=== PATIENT | male | born 1960 | race Caucasian/White ===

== ENCOUNTER → 2020-07-20 16:59 | Outpatient (CLI) | payer BC, SELFPAY | PROVIDERS: PCP Family Medicine; Visit Provider Family Medicine | DX: G47.30 Sleep apnea, unspecified (principal); G47.00 Insomnia, unspecified; R40.0 Somnolence; R06.83 Snoring; E66.9 Obesity, unspecified | CPT/HCPCS: G0399 ==

== ENCOUNTER → 2021-10-25 07:18 | Outpatient (CLI) | payer BC, SELFPAY ==
--- NOTE | 2021-10-25 07:26 | XR_ITS ---
FINAL REPORT CLINICAL HISTORY: LT FOOT PAIN FINDINGS: LEFT FOOT Three views of the left foot demonstrate no acute fracture or dislocation. There is a moderate Olesya deformity. There is a moderate plantar spur. The visualized joint spaces are normally aligned. The soft tissues are unremarkable. IMPRESSION: No acute bony abnormality. Reviewed, Interpreted and Dictated by Will Moon MD Transcribed by Aram Allen Authenticated by Will Moon MD on 10/25/2021 10:51:45 AM [facility]
== END ==
PROVIDERS: PCP Family Medicine; Visit Provider Family Medicine
DX: M79.672 Pain in left foot (principal)
CPT/HCPCS: 73630

== ENCOUNTER 2022-12-24 18:20 | Emergency (ER) | payer BC, SELFPAY ==
[2022-12-24 18:27] VITALS: BP 149/72; PULSE 81; RESP 18; TEMP 36.6; O2SAT 96; BMI 34.2
[2022-12-24 18:40] VITALS: BP 144/74; PULSE 83; RESP 18; TEMP 36.6; O2SAT 95; BMI 34.9
--- NOTE | 2022-12-24 18:49 | EXP.UTC ---
Discharge Plan Disposition Patient Disposition: Home, Self-Care Condition: Good Prescriptions Prescriptions: New cephalexin 500 mg capsule 500 mg PO TID 7 Days Qty: 21 0RF No Action gabapentin 600 mg tablet 600 mg PO QID Label Comments: TAKE ONE TABLET BY MOUTH FOUR TIMES DAILY MAY CAUSE DROWSINESS rosuvastatin 5 mg tablet 5 mg PO DAILY Label Comments: TAKE ONE TABLET BY MOUTH EVERY DAY AT BEDTIME metformin 500 mg tablet 500 mg PO BID Label Comments: TAKE TWO TABLETS BY MOUTH TWICE DAILY Jardiance 25 mg tablet 25 mg PO DAILY duloxetine 60 mg capsule,delayed release(DR/EC) 60 mg PO DAILY Label Comments: TAKE ONE CAPSULE BY MOUTH EVERY DAY esomeprazole magnesium 20 mg capsule,delayed release(DR/EC) 20 mg PO DAILY Label Comments: TAKE ONE CAPSULE BY MOUTH EVERY DAY celecoxib 200 mg capsule 200 mg PO DAILY Label Comments: TAKE ONE CAPSULE BY MOUTH EVERY DAY --TAKE WITH FOOD-- trazodone 50 mg tablet 50 mg PO DAILY folic acid 1 mg tablet 1 mg PO DAILY Label Comments: TAKE ONE TABLET BY MOUTH EVERY DAY Tremfya 100 mg/mL auto-injector See Rx Instructions .ROUTE .COMPLEX Rx Instructions: sub q duloxetine 30 MG capsule,delayed release(DR/EC) 30 mg PO DAILY Referrals Follow up/Referrals: David Bradford MD [Primary Care Provider] - See instructions Activity Restrictions/Add. Instructions Additional Instructions/Restrictions: Follow up immediately if any signs of infection including but not limited too redness, drainage streaking Take antibiotocs as prescribed Suture instructions: ?You have required stitches today. Please read the following instructions so you know how to care for them: ?1. Keep wound area dry for the first 24 hours. 2?? May clean gently with mild soap and water, after 48 hours to prevent crusting over suture knots. 3. You may shower if your provider gives permission but do not take a bath until the skin is healed.. 4. Never leave a wet dressing or Band-Aid on your stitches as this allows bacteria to reach the area and may cause infection. Band-aids can cause the wound to sweat and not recommended to wear for long periods of time Watch for signs of infection: ? Increasing redness, tenderness or warmth around the suture site ? Unusual swelling around the site ? Appearance of pus around each suture or any red streaks ? Fever If you develop any of the above signs or symptoms of infection, Follow up with Family Physician immediately 5. Suture removal in _10-12___days 6. Return to [facility] or follow up with family doctor for removal. This can be done by any medical provider dur?ing regular hours on Saturday through Saturday, by appointment. Clinical Impressions Clinical Impression: Laceration Instructions Patient Instructions: DI for Laceration Repair, DI for Laceration Repair -- Simple Discharge ED Provider: Radha Tesfaye [facility] [place] H[place] General Stated complaint: AO 12/24 Laceration to left leg Mode of Arrival: Ambulatory Source of Information: Patient Limitations: No Limitations Time Seen by Provider: 12/24/22 18:49 Description of Symptoms (Recalled from Triage Doc. by RN): laceration to the left leg. He was working on a deck fell through and nail got him. HEENT Symptoms (Recalled from RN notes): No Resp Symptoms (Recalled from RN notes): No Skin Symptoms (Recalled from RN notes): Yes MS Symptoms (Recalled from RN notes): No Functional Status (Recalled from RN notes): n/a History of Present Illness Provider Complaint: Patient states that he was working on a deck earlier today when he fell and a nail was sticking out and cut him on the left leg just above his knee States that he didnt notice how bad it was until after he got home and hasnt had a tetanus shot in awhile so he came in Related Data Home Medications Medication Instructions Recorded Confirmed duloxetine 30 mg cap
[2022-12-24 20:29] VITALS: BP 144/74; PULSE 83; RESP 18; TEMP 36.6; O2SAT 95
== END 2022-12-24 20:28 | disposition home or self-care (01) ==
LOC: ER 18:28 → UTC 18:29
PROVIDERS: Emergency Provider Nurse Practitioner; PCP Family Medicine
DX: S71.112A Laceration without foreign body, left thigh, initial encounter (principal); Z87.891 Personal history of nicotine dependence; W45.0XXA Nail entering through skin, initial encounter
CPT/HCPCS: 12002; 90715; 99204; 99213; G0463

== ENCOUNTER 2023-01-23 09:29 | Emergency (ER) | payer BC, SELFPAY ==
--- NOTE | 2023-01-23 09:34 | XR_ITS ---
FINAL REPORT CLINICAL HISTORY: fall 6 days ago right posterior rib pain COMPARISON: None FINDINGS: Four views of the right ribs were obtained. There is no displaced, acute fracture identified. The visualized lungs are clear. No pneumothorax is identified. IMPRESSION: No displaced rib fracture or pneumothorax identified. Reviewed, Interpreted and Dictated by Papito Solis III, MD Transcribed by Mere Peñaloza Authenticated and [facility]
--- NOTE | 2023-01-23 09:34 | XR_ITS ---
FINAL REPORT CLINICAL HISTORY: Mid back pain after fall x 6 days ago COMPARISON: None FINDINGS: Three views of the thoracic spine were obtained. There is no fracture present. There is no malalignment. There is mild degenerative change with osteophytes. There is mild rightward curvature of the upper thoracic spine. IMPRESSION: No acute process. Reviewed, Interpreted and Dictated by Papito Solis III, MD Transcribed by Mere Peñaloza Authenticated and [facility]
--- NOTE | 2023-01-23 09:55 | EXP.UTC ---
Discharge Plan Disposition Patient Disposition: Home, Self-Care Condition: Good Prescriptions Prescriptions: No Action gabapentin 600 mg tablet 600 mg PO QID Label Comments: TAKE ONE TABLET BY MOUTH FOUR TIMES DAILY MAY CAUSE DROWSINESS rosuvastatin 5 mg tablet 5 mg PO DAILY Label Comments: TAKE ONE TABLET BY MOUTH EVERY DAY AT BEDTIME metformin 500 mg tablet 500 mg PO BID Label Comments: TAKE TWO TABLETS BY MOUTH TWICE DAILY Jardiance 25 mg tablet 25 mg PO DAILY duloxetine 60 mg capsule,delayed release(DR/EC) 60 mg PO DAILY Label Comments: TAKE ONE CAPSULE BY MOUTH EVERY DAY esomeprazole magnesium 20 mg capsule,delayed release(DR/EC) 20 mg PO DAILY Label Comments: TAKE ONE CAPSULE BY MOUTH EVERY DAY celecoxib 200 mg capsule 200 mg PO DAILY Label Comments: TAKE ONE CAPSULE BY MOUTH EVERY DAY --TAKE WITH FOOD-- trazodone 50 mg tablet 50 mg PO DAILY folic acid 1 mg tablet 1 mg PO DAILY Label Comments: TAKE ONE TABLET BY MOUTH EVERY DAY Tremfya 100 mg/mL auto-injector See Rx Instructions .ROUTE .COMPLEX Rx Instructions: sub q cephalexin 500 mg capsule 500 mg PO TID 7 Days Qty: 21 0RF duloxetine 30 MG capsule,delayed release(DR/EC) 30 mg PO DAILY Referrals Follow up/Referrals: David Bradford MD [Primary Care Provider] - See instructions Activity Restrictions/Add. Instructions Additional Instructions/Restrictions: Go home and rest. Use the incentive spirometer 10 times every 4 hours while awake for the next 2 weeks. No heavy lifting. No twisting for the next few days. Follow up with your regular doctor. GO TO THE ER FOR ANY WORSENING SYMPTOMS OR CONCERN, ESPECIALLY BOWEL OR BLADDER ISSUES, SADDLE AREA NUMBNESS, FEVER, ETC Clinical Impressions Clinical Impression: Contusion of rib on right side Instructions Patient Instructions: DI for Rib Contusion Discharge ED Provider: Inderjit Rice [facility] [place] General Stated complaint: Fall@home 01/17 RT rib pain Time Seen by Provider: 01/23/23 09:54 History of Present Illness Provider Complaint: He states that he fell 6 days ago. Since then he had had right rib pain. He had to pull his truck door open yesterday and it caused his pain to get worse. He denies shortness of breath. He denies any other injury or complaint. Related Data Home Medications Medication Instructions Recorded Confirmed duloxetine 30 mg capsule,delayed 30 mg PO DAILY Depression 04/27/19 12/24/22 release celecoxib 200 mg capsule 200 mg PO DAILY Pain 11/29/21 12/24/22 duloxetine 60 mg capsule,delayed 60 mg PO DAILY . 11/29/21 12/24/22 release empagliflozin 25 mg tablet 25 mg PO DAILY . 11/29/21 12/24/22 (Jardiance) esomeprazole magnesium 20 mg 20 mg PO DAILY gerd 11/29/21 12/24/22 capsule,delayed release gabapentin 600 mg tablet 600 mg PO QID . 11/29/21 12/24/22 metformin 500 mg tablet 500 mg PO BID Diabetes 11/29/21 12/24/22 rosuvastatin 5 mg tablet 5 mg PO DAILY . 11/29/21 12/24/22 trazodone 50 mg tablet 50 mg PO DAILY sleep 11/29/21 12/24/22 folic acid 1 mg tablet 1 mg PO DAILY Supplement 12/24/22 12/24/22 guselkumab 100 mg/mL subcutaneous See Rx Instructions .Route 12/24/22 12/24/22 auto-injector (Tremfya) .COMPLEX . Previous Rx's Medication Instructions Recorded cephalexin 500 mg capsule 500 mg PO TID 7 days #21 caps 12/24/22 Allergies Allergy/AdvReac Type Severity Reaction Status Date / Time morphine AdvReac Mild Palpitation Verified 01/23/23 10:20 s [facility] Disclaimer: The information contained in this section may have been updated after the patient was seen, as this information can be updated by other users. 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
[2023-01-23 10:18] VITALS: BP 159/88; PULSE 68; RESP 14; TEMP 36.6; O2SAT 97; BMI 34.9
[2023-01-23 10:57] VITALS: BP 159/88; PULSE 68; RESP 14; TEMP 36.6
== END 2023-01-23 10:58 | disposition home or self-care (01) ==
PROVIDERS: Emergency Provider Nurse Practitioner Family; PCP Family Medicine
DX: S20.211A Contusion of right front wall of thorax, initial encounter (principal); Z87.891 Personal history of nicotine dependence; W19.XXXA Unspecified fall, initial encounter
CPT/HCPCS: 71101; 72072; 99212; 99214; G0463

== ENCOUNTER 2023-11-05 07:44 | Outpatient (CLI) | payer BC, SELFPAY ==
--- NOTE | 2023-11-05 07:50 | US_ITS ---
FINAL REPORT CLINICAL HISTORY: UPPER ABD PAIN COMPARISON: None FINDINGS: Sonographic images of the abdomen were obtained. The liver is fatty infiltrated. The gallbladder has an unremarkable appearance without evidence of gallstones. There is no evidence of biliary ductal dilatation. The common hepatic duct measures 3 mm, which is within normal limits. Limited images of the pancreas are unremarkable. The spleen size is normal. The right kidney measures 10.2 in length. The left kidney measures 11.2 in length. There is normal renal echogenicity. There is no evidence of hydronephrosis. The aorta has an unremarkable appearance. Limited images of the inferior vena cava are unremarkable. IMPRESSION: Fatty liver. Reviewed, Interpreted and Dictated by Papito Solis III, MD Transcribed by Mere Peñaloza Authenticated and [facility]
== END 2023-11-05 23:59 ==
LOC: RAD 07:45
PROVIDERS: PCP Family Medicine; Visit Provider Family Medicine
DX: R10.10 Upper abdominal pain, unspecified (principal)
CPT/HCPCS: 76700

== ENCOUNTER 2023-12-04 12:03 | Outpatient (CLI) | payer BC, SELFPAY ==
[2023-12-04 12:19] LABS: Basophils # 0.1 K/mm3 (0-0.2); Basophils % 0.9 % (0.1-2.0); Eosinophils # 0.2 K/mm3 (0.0-0.4); Eosinophils % 2.5 % (0.1-12.0); Hematocrit 45.6 % (42.0-52.0); Hemoglobin 15.1 g/dL (14.1-18.0); Lymphocytes # 1.5 K/mm3 (0.7-4.5); Lymphocytes % 22.6 % (10-50); Mean Corpuscular Hemoglobin 31.1 pg (27.0-31.2); Mean Corpuscular Volume 94.2 fl (80-94); Monocytes # 0.2 K/mm3 (0.1-1.0); Monocytes % 2.9 % (1.7-9.3); Neutrophils # 4.8 K/mm3 (1.8-7.8); Neutrophils % 71.2 % (37.0-80.0); Platelet Count 167 K/mm3 (142-424); Red Blood Count 4.84 M/mm3 (4.60-6.20); Red Cell Distribution Width 16.3 % (11.5-17.5); White Blood Count 6.7 K/mm3 (4.8-10.8)
[2023-12-04 14:37] LABS: Alanine Aminotransferase 78 U/L (12-78); Albumin Level 4.2 g/dl (3.5-5.0); Alkaline Phosphatase 85 U/L (38-126); Aspartate Amino Transferase 60 U/L (17-59); Bilirubin,Direct 0.2 mg/dl (0.0-0.4); Bilirubin,Indirect 0.5 mg/dL (0.0-0.9); Bilirubin,Total 0.7 mg/dl (0.2-1.3); Bilirubin,Unconjugated 0.4 mg/dL (0.0-1.1); Lipase 85 U/L (23-300); Total Protein,Serum 6.8 g/dl (6.3-8.2)
== END 2023-12-04 23:59 ==
LOC: LAB.DROPOF 12:04
PROVIDERS: PCP Family Medicine; Visit Provider Family Medicine
DX: J06.9 Acute upper respiratory infection, unspecified (principal); R74.8 Abnormal levels of other serum enzymes
CPT/HCPCS: 80076; 83690; 85025

== ENCOUNTER 2024-03-06 08:49 | Outpatient (CLI) | payer BC, SELFPAY ==
--- NOTE | 2024-03-06 | CA_ITS ---
FINAL REPORT TECHNIQUE: Color Doppler, duplex Doppler and cage scale sonography of the bilateral neck vasculature was performed. Velocities were measured in the carotid arteries. Stenosis evaluation based on velocity criteria. CLINICAL HISTORY: vertebral basilar insufficiency, Dizziness COMPARISON: None FINDINGS: The peak systolic velocity of the right common carotid artery is 93 cm/sec and internal carotid artery 110 cm/sec. The diastolic velocity in the internal carotid artery is 28 cm/sec. The ICA/CCA ratio is 1.69. Visually, a moderate amount of plaque is seen. These findings are consistent with less than 50% stenosis. The external carotid artery is patent. The right vertebral artery is patent with antegrade flow. The peak systolic velocity of the left common carotid artery is 90 cm/sec and internal carotid artery 110 cm/sec. The diastolic velocity in the internal carotid artery is 29 cm/sec. The ICA/CCA ratio is 1.3. Visually, a moderate amount of plaque is seen. These findings are consistent with less than 50% stenosis. The external carotid artery is patent. The left vertebral artery is patent with antegrade flow. IMPRESSION: No evidence of significant carotid stenosis. Bilateral patent vertebral arteries. If indicated, CTA or MRA could further evaluate. Reviewed, Interpreted and Dictated by Papito Solis III, MD Transcribed by Geeta Mohamud Authenticated and [facility]
== END 2024-03-06 23:59 | disposition home or self-care (01) ==
PROVIDERS: PCP Family Medicine; Visit Provider Family Medicine
DX: G45.0 Vertebro-basilar artery syndrome (principal)
CPT/HCPCS: 93880

== ENCOUNTER 2025-03-20 11:20 | Emergency (ER) | payer BC, SELFPAY ==
--- OUTSIDE RECORDS SUMMARY | 2009-08-31 20:00 | XMS_ITS | Continuity of Care Document ---
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 No Information Dec-3 1200 9 No Information Family History Family Member Type Diagnosis Age At Onset No Information Payers Payer name Insurance type Covered republican ID Authoriza tion(s) No Information Social History Type Description Quantity Date Captured Comments Sex Male Smoking Status No Information Chief Complaint And Reason For Visit No Information Reason For Referral Reason For Referral No Information History Of Present Illness Encounter Date Complaint History Of Prese nt Illness No Information Functional Status Date Functional Assessmen t No Information Instructions Date Instruction Additional Infor mation No Information Assessments Type Assessment Date No Information Patient Care Teams Name Effective Dates (start - stop) Status Members No Information
--- OUTSIDE RECORDS SUMMARY | 2024-06-12 05:30 | XMS_ITS ---
Author Organization [facility] Address [address] [facility] [address] [place], [place] [id number] Care Team Providers Care Gyn Name Role Phone Carrillo Bradford Primary Care Provider [phone] Allergies No Known Allergies Results Component Value Reference Range Notes Glycohemoglobin A1c (in hous e) Reviewed date:06/15/2024 09:44:08 AM Interpretation:6.6% Performing Lab: Notes/Report: 6.6% glycohemoglobin 6.6% 5 - 6.5 % P-Comprehensive Metabolic Pa quintin (CMP) Reviewed date:06/16/2024 04:25:01 PM Interpretation:gluc 182 Performing Lab: Notes/Report: Test performed by [facility] [employer], [place] [employer] [address] [place] [address] , [address], [place] [address] Curtis Gonzalez MD, Lead Material Handler CLIA: [id number] Sodium 142 135-145 mmol/L Potassium 4.3 3.5-5.3 [...] 156 Performing Lab: Notes/Report: Test performed by [employer], [place] [employer] [address] [place] [address] , [facility] [place], [place] [address] Curtis Gonzalez MD, Lead Material Handler CLIA: [id number] Cholesterol 156 <200 mg/dL Triglycerides 156 <150 [...] W/U Status Risk Notes Problem Chronic pain (74765211) Other chronic pain (G89.29) Active confirmed Vital Signs Blood pressure systolic 132 mm Hg 06/12/20 24 Blood pressure diastolic 80 mm Hg 024 Heart Rate 72 /min 06/12/2024 Height 72.50 in 06/12/2024 Weight 253.0 lbs 06/12/2024 BMI 33.84 kg/m2 06/12/2024 Encounters Encounter Location Date Provider Diagnosis [facility] [address] [facility] [address] [place], [place] [id number] 06/12/2024 Carrillo Bradford Type 2 diabetes ramesh [...] Up: 5M, Reason: Provider Name:Carrillo Jefferson er, 07/16/2025 10:00:00 AM, [address], [address], [place], [place], [id number], Progress Notes * Catarino MONTEOB:0 1960 (64 yo M)Acc No.[id number]:06/12/2024 Progress Notes Patient: Catarino LOZA Provider: Carrillo Bradford M.D. :1960 A ge:64 Y S ex:Male Date:06/12/2024 Address:[facility] [place], [id number] Subjective: * Chief Complaints: * 1 . [...] Procedure Codes: 3 6416 CAPILLARY BLOOD DRAW, [address] GLYCATED HEMOGLOBIN TEST, Modifiers: QW * Follow Up: 5 M * Images: Billing Information: * Visit Code: 94027 Office Visit, Est Pt., Level 4. * Procedure Codes: 88836 CAPILLARY BLOOD DRAW. 30507 GLYCATED HEMOGLOBIN TEST. Modifiers: QW * Electronic signature of Carrillo Bradford MD on 03/20/2025 at 11:38 AM EDT Sign off status: Pending * Provider: Carrillo Bradford M.D. Date: 1 Generated for Tenzini ng/Calixto/eTransmitting on: 0 03/20/2025 11:38 AM EDT History and Physical Notes * HPI (History [...]
--- OUTSIDE RECORDS SUMMARY | 2024-11-13 05:45 | XMS_ITS ---
Author Organization [facility] Address [address] [place], [place] [id number] Care Team Providers Care Wellness Assistant Name Role Phone Carrillo Bradford Primary Care Provider Allergies No Known Allergies Results Component Value Reference Range Notes Glycohemoglobin A1c (in hous e) Reviewed date:11/17/2024 04:31:55 PM Interpretation:7.3% Performing Lab: Notes/Report: 7.3% glycohemoglobin 7.3% 5 - 6.5 % P-Comprehensive Metabolic Pa quintin (CMP) Reviewed date:11/17/2024 04:31:55 PM Interpretation:gluc 178 Performing Lab: Notes/Report: Test performed by [facility] [address] [place] [address] , [address], [place] [address] Curtis Gonzalez MD, Industrial Machine Operator CLIA: [id number] Sodium 139 135-145 mmol/L Potassium 4.3 3.5-5.3 [...] 176 Performing Lab: Notes/Report: Test performed by [facility] [address] , [place] [address] Curtis Gonzalez MD, Industrial Machine Operator CLIA: [id number] Cholesterol 149 <200 mg/dL Triglycerides 176 <150 [...] Status NIZORAL CREAM 2 % [facility] Q DAY 05/30/2021 Active Tremfya 100 [...] Location Date Provider Diagnosis AZUL-Luis A [address] [facility] [place] [address] [place] [id number] 11/13/2024 Carrillo Bradford Type 2 diabetes ramesh [...] 3 Months, Reason: Provider Name:Carrillo Jefferson er, 07/16/2025 10:00:00 AM, [address], [address] , [place], [place], [id number], Progress Notes * Catarino MONTEOB:0 1960 (64 yo M)Acc No.[id number]:11/13/2024 Progress Notes Patient: Catarino LOZA Byron Provider: Carrillo Bradford M.D. :1960 A ge:64 Y S ex:Male Date:11/13/2024 Address:[facility] [place], [id number] Subjective: * Chief Complaints: * 1 . 5 months. 2. Needs labs, diabetic eye exam, & Prevnar vaccine. * HPI: C ardiology: The patient is here for a check-up on Hypertension, Hyperlipidemia, and diabetes. Pt states he is doing good and denies any new concerns today. Pt is fasting. [facility]. Denies : Chest Pain. D enies : [...] * Images: Billing Information: * Visit Code: 19239 Office Visit, Est Pt., Level 4. * Procedure Codes: 77737 GLYCATED HEMOGLOBIN TEST. Modifiers: QW 3075F SYST BP GE 130 - 139MM HG. 3079F DIAST BP 80-89 MM HG. 3051F HG A1C>EQUAL 7.0%<8.0%. * Electronic signature of Carrillo Bradford MD on 03/20/2025 at 11:37 AM EDT Sign off status: Pending * Provider: Carrillo Bradford M.D. Date: 0 11/13/2024 Generated for Jovan iglesias/Calixto/Alexandrasmitting on: 0 03/20/2025 11:37 AM EDT History and Physical Notes * [...]
--- OUTSIDE RECORDS SUMMARY | 2025-03-08 10:15 | XMS_ITS ---
Author Organization [facility] Address [address] [place], [place] [id number] Care Team Providers Care Leadership Development Instructor Name Role Phone Carrillo Bradford Primary Care Provider Allergies No Known Allergies Results Component Value Reference Range Notes Glycohemoglobin A1c (in hous e) Reviewed date:03/09/2025 11:42:20 AM Interpretation: Performing Lab: Notes/Report: glycohemoglobin 7.5% 5 - 6.5 % P-Comprehensive Metabolic Pa quintin (CMP) Reviewed date:03/11/2025 05:48:25 PM Interpretation:gluc 202, a1c 7.5 reviewed in office with patient Performing Lab: Notes/Report: Test performed by [facility] , [address], [place] [address] Curtis Gonzalez MD, Hose Sprayer CLIA: [id number] Sodium 138 135-145 mmol/L Potassium 4.6 3.5-5.3 [...] morning; Duration: 90 days Active Dexcom G7 Manufacturing Engineering Professor - as directed 03/08/2025 Active Nabumetone 750 MG as directed Orally t wice a day Active Problems Problem Type SNOMED Code ICD Code Onset Dates Problem Status W/U Status Risk Notes Problem Type 2 diabetes mellitus with other specified complication, unspecified whether penitentiary insulin use (E11.69) Active confirmed Problem Morbid obesity (199913895) Morbid obesity (E66.01) Active confirmed Problem Rheumatoid arthritis (87065319) Rheumatoid arthritis, involving unspecified site, unspecified whether rheumatoid factor present (M06.9) Active confirmed Vital Signs Blood pressure systolic 126 mm Hg 03/08/20 25 Blood pressure diastolic 74 mm Hg 025 Heart Rate 84 /min 03/08/2025 Height 72.50 in 03/08/2025 Weight 259.2 lbs 03/08/2025 BMI 34.67 kg/m2 03/08/2025 Encounters Encounter Location Date Provider Diagnosis [facility]is A [facility] [facility] [place] 36 [facility] [address] [place] [id number] 03/08/2025 Carrillo Bradford Type 2 diabetes mellitus without complication, without long-term current use of insulin E11.9 ; Psoriatic arthritis L40.50 ; Depression with anxiety F41.8 ; Type 2 diabetes mellitus with other specified complication, 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 E11.69 ; Morbid obesity E66.01 [...] mellitus with other specified complication, unspecified whether penitentiary insulin use (ICD-10 - E11.69) 03/08/2025 Morbid [...] Sensor - as directed 03/08/2025 Dexcom G7 Manufacturing Engineering Professor - as directed 03/08/2025 Next Appt Details Follow Up: 3 Months, Reason: Provider Name:Carrillo Jefferson , 07/16/2025 10:00:00 AM, [address] [facility] [place] 36 [facility], [address], [place], [id number], Progress Notes * Catarino MONTE:0 1960 (64 yo M)Acc No.[id number]:03/08/2025 Progress Notes Patient: Catarino LOZA Provider: Carrillo Bradford M.D. :1960 A ge:64 Y S ex:Male Date:03/08/2025 Address:[facility] [place], [id number] Subjective: * Chief Complaints: * 1 . [...] mellitus with other specified complication, unspecified whether penitentiary insulin use - E11.69 5 . M [...] * Images: Billing Information: * Visit Code: 40110 Office Visit, Est Pt., Level 4. * Procedure Codes: 88739 GLYCATED HEMOGLOBIN TEST. Modifiers: QW 3051F HG A1C>EQUAL 7.0%<8.0%. 1036F TOBACCO NON-USER. G8783 BP SCR PRFRM RCMDD DEFIND SCR INTVL. G8752 MOST RECENT SYSTOLIC BP < 140MM HG. G8754 MOST RECENT DIASTOLIC BP < 90MM HG. * Electronic signature of Carrillo Bradford MD on 03/20/2025 at 11:37 AM EDT Sign off status: Pending * Provider: Carrillo Bradford M.D. Date: 03/08/2025 Generated for Tenzini harris/Calixto/eTransmitting on: 03/20/2025 11:37 AM EDT History and Physical Notes * Examination Category [...]
[2025-03-20 11:28] VITALS: BP 149/70; PULSE 82; O2SAT 94
--- NOTE | 2025-03-20 11:28 | HMH.EDGENADL ---
Discharge Plan Disposition Patient Disposition: Home, Self-Care Prescriptions Prescriptions: No Action gabapentin 600 mg tablet 600 mg PO QID Patient Comments: TAKE ONE TABLET BY MOUTH FOUR TIMES DAILY MAY CAUSE DROWSINESS rosuvastatin 5 mg tablet 5 mg PO DAILY Patient Comments: TAKE ONE TABLET BY MOUTH EVERY DAY AT BEDTIME metformin 500 mg tablet 500 mg PO BID Patient Comments: TAKE TWO TABLETS BY MOUTH TWICE DAILY Jardiance 25 mg tablet 25 mg PO DAILY duloxetine 60 mg capsule,delayed release(DR/EC) 60 mg PO DAILY Patient Comments: TAKE ONE CAPSULE BY MOUTH EVERY DAY esomeprazole magnesium 20 mg capsule,delayed release(DR/EC) 20 mg PO DAILY Patient Comments: TAKE ONE CAPSULE BY MOUTH EVERY DAY celecoxib 200 mg capsule 200 mg PO DAILY Patient Comments: TAKE ONE CAPSULE BY MOUTH EVERY DAY --TAKE WITH FOOD-- trazodone 50 mg tablet 50 mg PO DAILY folic acid 1 mg tablet 1 mg PO DAILY Patient Comments: TAKE ONE TABLET BY MOUTH EVERY DAY Tremfya 100 mg/mL auto-injector See Rx Instructions .ROUTE .COMPLEX Rx Instructions: sub q cephalexin 500 mg capsule 500 mg PO TID 7 Days Qty: 21 0RF duloxetine 30 MG capsule,delayed release(DR/EC) 30 mg PO DAILY Referrals Follow up/Referrals: David Bradford MD [Primary Care Provider, Medical] - See instructions Activity Restrictions/Add. Instructions Additional Instructions/Restrictions: The Steri-Strips will fall off on their own over the next few days. Do not attempt to put them back on if they do fall off. Avoid submerging the hand in water or getting dirty until wound is healed. At that point, you can get the wound wet and use gentle soap and water. If it does begin to bleed again, hold pressure on the wound for at least 10 minutes before checking to see if the bleeding has stopped. If you develop any signs of infection, such as increased redness, swelling, pus draining from the wound, fever, or if you become concerned for your health for any reason, return to the emergency department for evaluation. Clinical Impressions Clinical Impression: Skin tear of right hand without complication Instructions Patient Instructions: DI for Skin Abscess Print Language Print Language: Fijian Discharge ED Provider: Vernon Ibarra Adult HPI General Chief complaint: Skin/Abscess/Foreign Body Stated complaint: AO 03/20/25 10:45 Cut on right hand Time Seen by Provider: 03/20/25 11:24 History of Present Illness HPI narrative: Gene Monte is a 64-year-old male with a history of diabetes who presents the emergency department for bleeding wound to his right hand. Patient states that he and his were moving furniture this morning when the piece of furniture got pushed into his right hand pinning it against another object. He pulled his hand away and tore the skin on the top of his right hand. He states that this happened approximately 45 minutes prior to arrival. He notes it is continue to bleed. He denies any numbness or tingling. He states that this occurred approximately 45 minutes prior to arrival. He states that his last tetanus shot was approximately 2 years ago. Related Data Home Medications ?Medication ?Instructions ?Recorded ?Confirmed duloxetine 30 mg capsule,delayed 30 mg PO DAILY Depression 04/27/19 12/24/22 release celecoxib 200 mg capsule 200 mg PO DAILY Pain 11/29/21 12/24/22 duloxetine 60 mg capsule,delayed 60 mg PO DAILY . 11/29/21 12/24/22 release empagliflozin 25 mg tablet 25 mg PO DAILY . 11/29/21 12/24/22 (Jardiance) esomeprazole magnesium 20 mg 20 mg PO DAILY gerd 11/29/21 12/24/22 capsule,delayed release gabapentin 600 mg tablet 600 mg PO QID . 11/29/21 12/24/22 metformin 500 mg tablet 500 mg PO BID Diabetes 11/29/21 12/24/22 rosuvastatin 5 mg tablet 5 mg PO DAILY . 11/29/21 12/24/22 trazodone 50 mg tablet 50 mg PO DAILY sleep 11/29/21 12/24/22 folic acid 1 mg tablet 1 mg PO DAILY Supplement 12/24/22 12/24/22 guselkumab 100 mg/mL subcutaneous See Rx Instructions .Route 12/24/22 12/24/22 auto-injector (Tremfya) .COMPLEX . Previous Rx's ?Medication ?Instructions ?Recorded cephalexin 500 mg capsule 500 mg PO TID 7 days #21 caps 12/24/22 Allergies Allergy/AdvReac Type Severity Reaction Status Date / Time morphine AdvReac Mild Palpitation Verified 01/23/23 10:20 s PFSH PFS Disclaimer: The information contained in this section may have been updated after the patient was seen, as this information can be updated by other users. Social History Smoking Status: Never smoker alcohol intake: current alcohol intake frequency: 0-2 drinks per day substance use type: denies use current occupational status: other Travel in the last 8 weeks?: None caffeine: Yes Have you lived/traveled outside US in past 30 days?: No Contact w/someone who lives/traveled outside US past 30 days?: No Exposure to someone with infectious disease in past 14 days?: No Do you have a fever (greater than 100.4 F or 38 C)?: No Have you tested positive for COVID-19?: No Exposed to someone with COVID-19 in past 14 days?: No Do you have a sore throat?: No Do you have a cough?: No Do you have any weakness?: No Do you have any diarrhea?: No Are you experiencing any unusual bleeding?: No Do you have any muscle aches/pain?: No Do you have any abdominal pain?: No Are you experiencing loss of taste or smell?: No Other Medical History Have you received the Flu Vaccine for this season: No Have you received the Pneumonia Vaccine: Yes ROS Obtained: Yes Systems reviewed as appropriate & no additional complaints except as documented Physical Exam General General appearance: alert and in no apparent distress Head Head exam: atraumatic Eye Eye exam: Present normal appearance ENT ENT exam: Present normal external ear exam Neck Neck exam: Present full ROM Chest Chest inspection: Present symmetric chest wall rise Respiratory Respiratory exam: Present normal lung sounds bilaterally; Absent respiratory distress Cardiovascular Cardiovascular exam: Present regular rate and normal rhythm Abdominal Exam Abdominal exam: Absent distention exam: Present deferred Extremities Exam Extremities exam: Present normal inspection and other (Right upper extremity: 5 cm skin tear to the dorsum of the right hand with venous oozing. Full range of motion of all fingers. Sensation grossly intact. Strong radial pulse.) Expanded Upper Extremity Exam Right: Hand L/R back image:  1. skin tear/laceration Back Exam Back exam: Present normal inspection Neurological Exam Neurological exam: Present alert and oriented X3 Psychiatric Psychiatric exam: Present normal affect Skin Skin exam: Present warm and dry Medical Decision Making Medical Records Screening: Per USPSTF and CDC recommendations, given the prevalence of disease in our region, it is our hospital?s policy to screen for HIV and viral Hepatitis for all patients aged 18 and over and those with ongoing risk factors. Nelson Inquiry Pt receiving controlled substance: No Vital Signs: 03/20/25 11:28 03/20/25 11:30 03/20/25 11:31 Temperature 98.4 F Temperature Source Oral Pulse Rate 82 80 Pulse Rate [Right] 82 Respiratory Rate 18 Blood Pressure 149/70 H 142/78 H Blood Pressure [Right Arm] 149/70 H Blood Pressure Mean [Right Arm] 96 02 Sat by Pulse Oximetry 94 L 97 96 Oxygen Delivery Method Room Air 03/20/25 12:43 Temperature 98.4 F Temperature Source Pulse Rate 81 Pulse Rate [Right] Respiratory Rate 18 Blood Pressure 139/69 Blood Pressure [Right Arm] Blood Pressure Mean [Right Arm] 02 Sat by Pulse Oximetry Oxygen Delivery Method Room Air Orders (Tests/Meds): ED MEDICATIONS Discontinued Medications Generic Name Dose Route Start Last Admin Trade Name Freq PRN Reason Stop Dose Admin Tranexamic Acid 1,000 mg 03/20/25 12:00 03/20/25 11:55 Tranexamic Acid 1,000 Mg/10 Ml Vial TP 03/20/25 12:01 1,000 mg ONCE ONE Administration Medical Decision Narrative: Gene Monte is a 64-year-old male with a history of diabetes who presents the emergency department for bleeding wound to his right hand. Patient states that he and his were moving furniture this morning when the piece of furniture got pushed into his right hand pinning it against another object. He pulled his hand away and tore the skin on the top of his right hand. He states that this happened approximately 45 minutes prior to arrival. He notes it is continue to bleed. He denies any numbness or tingling. He states that this occurred approximately 45 minutes prior to arrival. He states that his last tetanus shot was approximately 2 years ago. On arrival, patient is hemodynamically stable, in no acute respiratory distress, breathing comfortably on room air with appropriate oxygen saturation. Physical exam, stated above, revealed an overall well-appearing male in no distress. He has a 4 cm skin tear to the dorsum of his right hand with venous oozing but no evidence of arterial bleeding. He has full range of motion of his angers with normal sensation. Radial pulses intact. Physical exam is otherwise unremarkable. There is no concern for any bony involvement x-ray imaging was considered, however was not pursued at this time as there is low concern for fracture. Will apply TXA soaked gauze to help control bleeding. Patient's skin is very thin and will likely not be suitable for sutures. Will pursue Steri-Strips and Dermabond if needed once wound is hemostatic. Patient's wound was hemostatic with pressure and TXA soaked gauze. I then placed Steri-Strips over the wound after thoroughly irrigating it with sterile water and Hibiclens. He tolerated this well. Patient was given instructions to return if there is any evidence of infection and to keep the wound clean and to not submerge it in water until it is fully healed. He was also provided gauze dressing to keep the wound covered. All questions were answered. He demonstrated understanding and was in agreement this plan. He was then discharged from the emergency department in stable condition. Procedures Laceration Laceration 1: Site: hand Side (If applicable): right Size (cm): 5 Description: flap and irregular Depth: simple, single layer Local Anesthetic: other anesthetic (None) Pre-repair: irrigated extensively Skin layer closed with: other (Steri-Strips x 6) Critical Care Critical Care Time Critical Care Time: No
[2025-03-20 11:30] VITALS: BP 142/78; PULSE 80; O2SAT 97
[2025-03-20 11:31] VITALS: BP 149/70; PULSE 82; RESP 18; TEMP 36.9; O2SAT 96; BMI 33.6
--- NOTE | 2025-03-20 11:36 | PC.NURSE ---
Received report from SHARLENE Knight.
--- OUTSIDE RECORDS SUMMARY | 2025-03-20 11:37 | XMS_ITS | Continuity of Care Document ---
Author Organization [facility], RHEUMATOLOGY SB Address [address] [place] [address] Care Team Providers Care Fifth Grade Teacher Name Role Phone ALISSA SIMS Referring Provider MEET PERALES Primary Care Provider ANA PAUL Lining Presser MARY CAMERON Maid Supervisor Assessment Encounter Date Assessment Date Assessment LastModified by Organization Details LastModified Time 01/22/2025 01/22/2025 Follow-up on psoriatic arthritis and joint pains. A bit symptomatic with joint pains. Impression and plan as follows: [email or web address] Not available 01/22/2025 13:48:40 Plan of Treatment Reminders Order Date Submit Date Provider Last Modified By Organization Details Last Modified Time Details Appointments RHEUM RECHECK 2024 08:15A M MARY CAMERON MD Not available Not available Not available Lab CBC w/ auto diff 2024 025 [facility], [address] [place] [address], [id number], 01/22/2025 14:55:56 hepatic function panel, serum 2024 025 [facility], [address] [place] [address], [id number], 01/22/2025 15:29:21 Referral None recorded. Procedures None recorded. Surgeries None recorded. Imaging None recorded. Medication Orders nabumeton e 750 mg tablet 2024 025 [id number], [address] , [place], [place], [id number], 01/22/2025 13:25:39 Patient TargetsNo targets recorded. Patient InstructionsNo instructions recorded. Reason for Referral None Reported. Medical Equipment None Reported. Allergies Allergen ID Allergen Name Allergen Category Reaction Reaction Severity Criticality Documentation Date Start Date Code Code System Note Provider Name and Address Organization Details Recorded Time 633349 morphine medicatio n rash mild low 04/16/2024 7052 RxNorm Emerita Stevenson [facility] 4 10:59:48 Medications Name Sig Start Date Stop Date Status Note LastModified by Organization Details LastModified Time gabapenti n 600 mg tablet Take 1 tablet 3 times a day by oral route. active Not Available Not Available No t Available nabumeton e 750 mg tablet Take 1 tablet twice a day by oral route for 30 days. 2024 active Not Available Not Available Not Avai lable methotrex ate sodium 2.5 mg tablet TAKE 8 TABLETS BY MOUTH ONCE WEEKLY ON THE SAME DAY EACH WEEK 2024 active Not Available Not Available Not Avai lable folic acid 1 mg tablet Take 1 tablet every day by oral route for 90 days. 2023 active Not Available Not Available Not Avai lable aspirin 81 mg tablet Daily 09/28 completed Frequenc y: daily;Me dication Descript ion: aspirin; Dosage:1 ; Route:or al; refills: 0 Not Available Not Available Not Available hydrocort isone 0.5 % topical ointment APPLY A THIN LAYER TO THE AFFECTED AREA(S) BY TOPICAL ROUTE 2 TIMES PER DAY active Not Available Not Available No t Available rosuvasta tin 5 mg tablet Take 1 tablet every day by oral route. active Not Available Not Available No t Available gabapenti n 300 mg tablet 01/11 completed Medicati on Descript ion: gabapent in; Route:or al; refills: 0 Not Available Not Available Not Available Fish Oil 09/28 completed Medicati on Descript ion: omega-3 polyunsa turated fatty acids; Route:or al; refills: 0 Not Available Not Available Not Available trazodone active Not Available Not Megan ilable Not Available metformin active Not Available Not Megan ilable Not Available celecoxib 01/22 completed Not Available Not Available Not Available esomepraz ole magnesium active Not Available Not Available No t Available duloxetin e active Not Available Not Available Not Available Jardiance active Not Available Not Megan ilable Not Available Vitals Date Recorded Body height Respiratory rate Oxygen saturation Oxygen saturation in Arterial blood by Pulse oximetry Heart rate Body mass index (BMI) Body weight Systolic And Diastolic Provider Name and Address Organization Details Last Updated DateTime 5 185.42 cm 16 /min 96 % 96 % 84 /min 35.9 kg/m2 278443. 12 g 122/68 mm[Hg] Sunil Gaitanerson [facility] 5 13:12:45 Social History Question Answer Notes LastModified by Organizat ion Details LastModified Time Tobacco Smoking Status [facility]/11/2022 09:02:42 What Was The Date Of Your Most Recent Tobacco Screening? 01/22/2025 [email or web address] Information not available 01/22/2025 Has Tobacco Cessation Counseling Been Provided? No Information not available 01/11/2022 Have You Recently Traveled Abroad? No Information not available 01/11/2022 Sex: Male Functional Status Question Answer Note LastModified by Organizat ion Details LastModified Time Do you use any illicit or recreational drugs? No Information not available 01/11/2022 Do you or have you ever used any other forms of tobacco or nicotine? No Information not available 01/11/2022 What is your level of alcohol consumption? Occasional [email or web address] Information not available 03/29/2023 Mental Status None recorded. Family History Relationship Description Onset Age of this Age Resolved Age Notes LastModified by Organization Details LastModified Time Father No current problems or disability [email or web address] Not available 01/11 09:02:35 Mother No current problems or disability [email or web address] Not available 01/11 09:02:35 Medical History Condition Response Diabetes Y Bleeding Disorder N Arthritis Y Emphysema N Acid Reflux (GERD) Y Heart Disease N Rheumatoid Arthritis Y Hypertension N COPD N Asthma N Past Encounters Encounter ID Performer Location Encounter Start Date Encounter Closed Date Diagnosis/Indication Diagnosis SNOMED-CT Code Diagnosis ICD10 Code Diagnosis Note [id number] MARY CAMERON MD [facility] [address] [place] [address] 01/22/2025 13:02:50 01/22/2025 13:55:14 Psoriatic arthritis 220762384 L40.50 64-year-ol d gentleman with psoriasis and psoriatic arthritis. Followed by Dr. Ana paul [facility]. On [place] 23 antagonist Tremfya 100 mg every 12 weeks. He has noticed psoriasis patches at 12 weeks and is planning to talk to dermatolog y about going back to q 8 weeks. Has failed Stelara as well as Taltz. He is also failed the anti-TNF therapy including Enbrel and Humira. On methotrexa te 20 mg once a week in combinatio n with folic acid 1 mg once a day. Current joint pains are more degenerati ve in nature involving the acromiocla vicular joint, bilateral shoulder joints as well as neck pains without radiculopa thy. No active synovitis or effusions. No interval infections .Does not have dactylitis or enthesitis . Stable chronic deformitie s at the wrist joints. Minimal dependent edema. Continue with the current methotrexa te at 20 mg weekly in combinatio n with folic acid 1 mg daily.He will continue with Tremfya 100 mg every 8 weeks instead of every 12 weeks. Discontinu e Celebrex and suggested a trial of Relafen 750 mg twice a day I also discussed importance of weight loss and low-carb diet. He is diabetic and would benefit from weight loss beside low sugar diet. He will come see me again in 6 months. Long-term current use of immunosuppressive drug [id number] Z79.899 10/04/23 labs all normal. We will repeat labs again today, obtain CBC liver function and ESR TB test 10/04/23 normal, repeat today. Repeat CBC and liver function panel Dupuytren' s contracture of finger [id number] M72.0 Dupuytren contractur e L hand middle and ring, R hand middle finger and ring finger. Chronic and stable. Continue with local care. At present hold off on any surgical interventi ons. Bilateral shoulder osteoarthritis [id number] 59404 M19.011 M19.012 Traumatic. Moderate to severe degenerati ve changes. Left shoulder more than right. Discussed the clinical findings and range of motion exercises. Suggested to DC celecoxib and start relafen 750 mg twice daily. Health Concerns Section Related Observation LastModified by Organization Detai ls LastModified Time None Recorded Concern Status LastModified by Organization Details LastModified Time None Recorded Payers Encounter Date Sequence Insurance Name Policy Number Policy Her Covered Member ID Her Member ID Guarantor Name 01/22/2025 1 [place] [employer] [address] Khushbu Monte [id number] Catarino Monte 01/22/2025 2 [place] Catarino Monte [id number] Catarino Monte Notes Date Note Type Note Provider Name and Address Organization Details Recorded Time 01/22/2025 text/html 64 y/o m here fo r a follow-up on psoriatic arthritis. Byron was last seen here in our rheumatology department 07/24/24. Currently on the combination of methotrexate 20 mg q weekly and Tremfya 100mg q 12 weeks. He did try stretching Tremfya to 12 weeks however he did start getting psoriasis patches so is planning on going back to 8 weeks. He has started noticing some joint pains again. Particularly in his neck and shoulders. Does have type 2 diabetes. Controlled.Does take celecoxib and gabapentin. No side effects reported.Dermatolo yair is . Tolerating the combination well. skin is stable. Every once in a while a flare. No interval infections. MARY CAMERON MD [facility] [place], [address], [facility] 01/22/2025 13:48:57
--- OUTSIDE RECORDS SUMMARY | 2025-03-20 11:37 | XMS_ITS | Clinical Summary ---
Author Organization [facility] Address [address] [place] [address] Care Team Providers Care Elastic Assembler Name Role Phone Janine Miranda MD Primary Care Provider Allergies No known active allergies Medications celecoxib (CeleBREX) 200 MG capsule TAKE ONE CAPSULE BY MOUTH EVERY DAY --TAKE WITH FOOD-- 1 Active DULoxetine (Cymbalta) [address] capsule Take 60 mg by mouth 1 (one) time each day. 1 Active Jardiance 25 MG Take 25 mg by mouth 1 (one) time each day in the morning. 1 Active Coenzyme Q10 (Co Q10) 200 MG capsule 1 Active esomeprazole (NexIUM) [address] capsule Take 20 mg by mouth 1 (one) time each day. 1 Active gabapentin (Neurontin) 600 MG tablet 1 Active glimepiride (Amaryl) 2 MG tablet Take 2 mg by mouth 1 (one) time each day. 1 Active ibuprofen 600 MG tablet Active Taltz 80 MG/ML solution auto-injector 1 Active metFORMIN (Glucophage) 500 MG tablet Take 1,000 mg by mouth 2 (two) times a day. 1 Active ketoconazole (NIZOral) 2 % cream APPLY TOPICALLY TO THE AFFECTED AREA(S) DIRECTED EVERY DAY -- FOR EXTERNAL USE ONLY-- 1 Active rosuvastatin (Crestor) 5 MG tablet Take 5 mg by mouth every night. 1 Active traZODone (Desyrel) 50 MG tablet TAKE ONE TABLET BY MOUTH EVERY DAY AT BEDTIME MAY CAUSE DROWSINESS Active Family History Medical History Relation Name Comments Cancer Brother Diabetes Brother Stroke Father Cancer Father's Sister Cancer Mother Cancer Sister Diabetes Sister Relation Name Status Comments Brother Father Father's Sister Mother Sister Social History Tobacco Use Types Packs/Day Years Used Date Smoking Tobacco: Former Smokeless Tobacco: Former Sex and Gender Information Value Date Recorded Sex Assigned at Not on file Legal Sex Male 8:39 PM EDT Gender Identity Not on file Sexual Orientation Not on file Plan of Treatment Health Maintenance Due Date Last Done Comments [facility]-Depression Screening 1959 [facility]-Infant/Child/Adol SDOH Screenings 1959 [facility]- SDOH Screenings 1977 [facility]-Adult SDOH Screenings 1977 [facility]-DTaP,Tdap,and Td Vaccine s (1 - Tdap) 1978 CT Colonography 2004 Colonoscopy 2004 FIT-DNA 2004 FIT 2004 FOBT 2004 Sigmoidoscopy 2004 [facility]-Colorectal Cancer Screening 2004 [facility]-Pneumococcal Vaccine: 50 + Years (1 of 1 - PCV) 2009 [facility]-Zoster Vaccines (1 of 2) 2009 [id number] Vaccine (3 - season) 2024 12/23/2020, 11/15/2020 [facility]-Influenza Vaccine (#1) 05/03/202505/30, 06/27/2020, 06/22/2019 [facility]-RSV Vaccine: 60+ Years o r (1 - 1-dose 75+ series) 2034 HPV Vaccines Aged Out No longer eligi ble based on patient's age to complete this topic [facility]-HIB Vaccines Aged Out No longer e ligible based on patient's age to complete this topic [facility]-Hepatitis A Vaccines Aged Out No longer eligible based on patient's age to complete this topic [facility]-IPV Vaccines Aged Out No longer e ligible based on patient's age to complete this topic [facility]-Rotavirus Vaccines Aged Out No lo nger eligible based on patient's age to [place] [address] [place] [address] [facility] Care Teams Elastic Assembler Relationship Specialty Start Date End Date Janine Miranda MD PCP - General 07/25/21"
--- OUTSIDE RECORDS SUMMARY | 2025-03-20 11:38 | XMS_ITS | Data Portability ---
Author Organization SAURABH Alvarado Machado c, [facility] Address [address] [facility] [address] [place] [address] Care Team Providers Care Child Care Nurse Name Role Phone ALISSA SIMS Referring Provider MEET PERALES Primary Care Provider ANA LOMAS Catalyst Operator Chief MARY CAMERON Felt Dyeing Machine Tender Assessment Encounter Date Assessment Date Assessment LastModified by Organization Details LastModified Time 03/29/2023 03/29/2023 Dupuytren contracture L hand middle and ring, R hand middle finger and ring finger. [email or web address] Not available 03/29/2023 09:32:12 10/04/2023 10/04/2023 Dupuytren contracture L hand middle and ring, R hand middle finger and ring finger. [email or web address] Not available 10/04/2023 08:00:11 01/22/2025 01/22/2025 Follow-up on psoriatic arthritis and joint pains. A bit symptomatic with joint pains. Impression and plan as follows: Not available 01/22/2025 13:48:40 Plan of Treatment Reminders Order Date Submit Date Provider Last Modified By Organization Details Last Modified Time Details Appointments RHEUM RECHECK 2024 08:15A M MARY CAMERON MD Not available Not available Not available Lab CBC w/ auto diff 2024 025 [facility], [address] [place] [address], [place], [address], 01/22/2025 14:55:56 hepatic function panel, serum 2024 025 [facility], [address] [place] [address], [id number], 01/22/2025 15:29:21 CBC w/ auto diff 2023 024 [facility], [address] [place] [address], [id number], 07/24/2024 10:27:11 ESR (erythroc yte sedimenta tion rate), blood 2023 024 [facility], [address] [place] [address], [address], 07/24/2024 11:51:28 hepatic function panel, serum 2023 024 [facility], [address] [place] [address], [address], 07/24/2024 10:45:12 CBC w/ auto diff [address] [facility], [address] [place] [address], [id number], 04/23/2024 08:06:26 hepatic function panel, serum [address] [facility], [address] [place] [address], [address], 04/23/2024 08:06:26 CBC w/ auto diff 2023 024 [facility], [address] [place] [address], [id number], 10/04/2023 09:56:17 ESR (erythroc yte sedimenta tion rate), blood 2023 024 [facility], [address] [place] [address], [id number], 10/04/2023 12:10:27 ALT (alanine aminotran sferase), serum or plasma 2023 024 [facility], [address] [place] [address], [id number], 10/04/2023 09:37:54 AST/SGOT (aspartat e aminotran sferase), serum or plasma 2023 024 [facility], [address] [place] [address], [address], 10/04/2023 09:37:51 Mycobacte rium tuberculo sis stimulate d gamma interfero n, qual, blood 2023 024 [facility], [address] [place] [address], [id number], 10/07/2023 16:56:21 CBC w/ auto diff 2022 023 [facility], [address] [place] [address], [id number], 03/29/2023 10:59:08 ALT (alanine aminotran sferase), serum or plasma 2022 023 [facility], [address] [place] [address], [address], 03/29/2023 11:12:55 AST/SGOT (aspartat e aminotran sferase), serum or plasma 2022 023 [facility], [address] [place] [address], [address], 03/29/2023 11:12:58 ESR (erythroc yte sedimenta tion rate), blood 2022 023 [facility], [address] [place] [address], [id number], 03/29/2023 12:05:48 Referral None recorded. Procedures None recorded. Surgeries None recorded. Imaging None recorded. Medication Orders nabumeton e 750 mg tablet 2024 025 [id number], [address] [place], [id number], 01/22/2025 13:25:39 methotrex ate sodium 2.5 mg tablet 2023 024 [id number], [address] [place], [phone], 07/24/2024 09:34:28 folic acid 1 mg tablet 2023 024 [id number], [address] [place], [id number], 07/24/2024 09:34:34 folic acid 1 mg tablet 2022 023 [facility], [address] [place] [address], [id number], 06/25/2023 12:45:04 methotrex ate sodium 2.5 mg tablet 2022 023 [facility], [address] [place] [address] [address] [place], [id number], 06/25/2023 12:45:11 Patient TargetsNo targets recorded. Patient Instructions Encounter Date Encounter Id Patient Instructions Last Modified By Organization Details Last Modified Time 04/16/2024 [id number] Dupuytren's Disease: Care Instructions Not available 04/17/2024 08:05:27 Reason for Referral None Reported. Results Created Date Observation Date Name Description Value Unit Range Abnormal Flag Note LastModifiedBy Organization Detail LastModifiedTime 03/29/2003/29/2023 COMPL ETE BLOOD COUNT white blood cells 6.2 10*3/ uL 3.8-10 .8 normal Not Available [facility] [address] [place] [address], [id number], 03/29/2023 10:59:08 03/29/20 23 03/29/2023 COMPL ETE BLOOD COUNT red blood cells 5.18 10*6/ uL 4.20-5 .80 normal Not Available [facility] [address] [place] [address], [address], 03/29/2023 10:59:08 03/29/20 23 03/29/2023 COMPL ETE BLOOD COUNT hemoglobin 15.4 g/dL 14.0-1 8.0 normal Not Available [facility] [address] [place] [address], [address], 03/29/2023 10:59:08 03/29/20 23 03/29/2023 COMPL ETE BLOOD COUNT hematocrit 46.0 % 40.0-5 2.0 normal Not Available [facility] [address] [place] [address], [address], 03/29/2023 10:59:08 03/29/20 23 03/29/2023 COMPL ETE BLOOD COUNT MCV 89 fL 80-100 normal Not Available [facility] [address] [place] [address], [address], 03/29/2023 10:59:08 03/29/20 23 03/29/2023 COMPL ETE BLOOD COUNT MCH 30 pg 26-35 normal Not Available [facility] [address] [place] [address], [address], 03/29/2023 10:59:08 03/29/20 23 03/29/2023 COMPL ETE BLOOD COUNT MCHC 33 g/dL 32-36 normal Not Available [facility] [address] [place] [address], [id number], 03/29/2023 10:59:08 03/29/20 23 03/29/2023 COMPL ETE BLOOD COUNT RDW 16.3 % 11.0-1 5.0 high Not Available [facility] [address] [place] [address], [address], 03/29/2023 10:59:08 03/29/20 23 03/29/2023 COMPL ETE BLOOD COUNT MPV 8.5 fL 6.2-10 .5 normal Not Available [facility] [address] [place] [address], [address], 03/29/2023 10:59:08 03/29/20 23 03/29/2023 COMPL ETE BLOOD COUNT platelet count 169 10*3/ uL 130-40 0 normal Not Available [facility] [address] [place] [address], [address], 03/29/2023 10:59:08 03/29/20 23 03/29/2023 COMPL ETE BLOOD COUNT neutrophil,a bsolute 4.3 10*3/ uL 1.6-8. 4 normal Not Available [facility] [address] [place] [address], [address], 03/29/2023 10:59:08 03/29/20 23 03/29/2023 COMPL ETE BLOOD COUNT lymphocyte,a bsolute 1.3 10*3/ uL 0.4-5. 1 normal Not Available [facility] [address] [place] [address], [address], 03/29/2023 10:59:08 03/29/20 23 03/29/2023 COMPL ETE BLOOD COUNT monocyte,abs olute 0.4 10*3/ uL 0.0-1. 2 normal Not Available [facility] [address] [place] [address], [address], 03/29/2023 10:59:08 03/29/20 23 03/29/2023 COMPL ETE BLOOD COUNT eosinophil,a bsolute 0.1 10*3/ uL 0.0-0. 8 normal Not Available [facility] [address] [place] [address], [address], 03/29/2023 10:59:08 03/29/20 23 03/29/2023 COMPL ETE BLOOD COUNT basophil,abs olute 0.0 10*3/ uL 0.0-0. 3 normal Not Available [facility] [address] [place] [address], [address], 03/29/2023 10:59:08 03/29/20 23 03/29/2023 COMPL ETE BLOOD COUNT % neutrophils 69.3 % 42.0-7 8.0 normal Not Available [facility] [address] [place] [address], [address], 03/29/2023 10:59:08 03/29/20 23 03/29/2023 COMPL ETE BLOOD COUNT % lymphocytes 21.2 % 11.0-4 7.0 normal Not Available [facility] [address] [place] [address], [address], 03/29/2023 10:59:08 03/29/20 23 03/29/2023 COMPL ETE BLOOD COUNT % monocytes 6.6 % 0.0-11 .0 normal Not Available [facility] [address] [place] [address], [address], 03/29/2023 10:59:08 03/29/20 23 03/29/2023 COMPL ETE BLOOD COUNT % eosinophils 2.2 % 0.0-7. 0 normal Not Available [facility] [address] [place] [address], [address], 03/29/2023 10:59:08 03/29/20 23 03/29/2023 COMPL ETE BLOOD COUNT % basophils 0.7 % 0.0-3. 0 normal Not Available [facility] [address] [place] [address], [address], 03/29/2023 10:59:08 03/29/20 23 03/29/2023 COMPL ETE BLOOD COUNT nucleated red cells 0.1 % 0.0-0. 9 normal Not Available [facility] [address] [place] [address], [address], 03/29/2023 10:59:08 03/29/20 23 03/29/2023 COMPL ETE BLOOD COUNT nucleated RBCs, absolute 0.01 10*3/ uL not estab. normal Not Available [facility] [address] [place] [address], [id number], 03/29/2023 10:59:08 03/29/20 23 03/29/2023 ALT ALT 29 U/L 0-41 normal Not Available [facility] [address] [place] [address], [address], 03/29/2023 11:12:55 03/29/20 23 03/29/2023 AST AST 29 U/L 0-40 normal Not Available [facility] [address] [place] [address], [address], 03/29/2023 11:12:58 03/29/20 23 03/29/2023 ESR, AUTOM ATED ESR, automated 8 mm 0-19 normal Not Available [facility] [address] [place] [address], [address], 03/29/2023 12:05:48 10/04/19 24 10/04/2023 AST AST 24 U/L 0-40 normal Not Available [facility] [address] [place] [address], [address], 10/04/2023 09:37:51 10/04/19 24 10/04/2023 ALT ALT 24 U/L 0-41 normal Not Available [facility] [address] [place] [address], [address], 10/04/2023 09:37:54 10/04/19 24 10/04/2023 COMPL ETE BLOOD COUNT white blood cells 6.1 10*3/ uL 3.8-10 .8 normal Not Available [facility] [address] [place] [address], [address], 10/04/2023 09:56:17 10/04/19 24 10/04/2023 COMPL ETE BLOOD COUNT red blood cells 5.18 10*6/ uL 4.20-5 .80 normal Not Available [facility] [address] [place] [address], [address], 10/04/2023 09:56:17 10/04/19 24 10/04/2023 COMPL ETE BLOOD COUNT hemoglobin 15.8 g/dL 14.0-1 8.0 normal Not Available [facility] [address] [place] [address], [address], 10/04/2023 09:56:17 10/04/19 24 10/04/2023 COMPL ETE BLOOD COUNT hematocrit 46.3 % 40.0-5 2.0 normal Not Available [facility] [address] [place] [address], [address], 10/04/2023 09:56:17 10/04/19 24 10/04/2023 COMPL ETE BLOOD COUNT MCV 89 fL 80-100 normal Not Available [facility] [address] [place] [address], [address], 10/04/2023 09:56:17 10/04/19 24 10/04/2023 COMPL ETE BLOOD COUNT MCH 31 pg 26-35 normal Not Available [facility] [address] [place] [address], [address], 10/04/2023 09:56:17 10/04/19 24 10/04/2023 COMPL ETE BLOOD COUNT MCHC 34 g/dL 32-36 normal Not Available [facility] [address] [place] [address], [address], 10/04/2023 09:56:17 10/04/19 24 10/04/2023 COMPL ETE BLOOD COUNT RDW 15.4 % 11.0-1 5.0 high Not Available [facility] [address] [place] [address], [address], 10/04/2023 09:56:17 10/04/19 24 10/04/2023 COMPL ETE BLOOD COUNT MPV 8.4 fL 6.2-10 .5 normal Not Available [facility] [address] [place] [address], [address], 10/04/2023 09:56:17 10/04/19 24 10/04/2023 COMPL ETE BLOOD COUNT platelet count 172 10*3/ uL 150-40 0 normal Not Available [facility] [address] [place] [address], [address], 10/04/2023 09:56:17 10/04/19 24 10/04/2023 COMPL ETE BLOOD COUNT neutrophil,a bsolute 4.3 10*3/ uL 1.6-8. 4 normal Not Available [facility] [address] [place] [address], [address], 10/04/2023 09:56:17 10/04/19 24 10/04/2023 COMPL ETE BLOOD COUNT lymphocyte,a bsolute 1.2 10*3/ uL 0.4-5. 1 normal Not Available [facility] [address] [place] [address], [address], 10/04/2023 09:56:17 10/04/19 24 10/04/2023 COMPL ETE BLOOD COUNT monocyte,abs olute 0.4 10*3/ uL 0.0-1. 2 normal Not Available [facility] [address] [place] [address], [address], 10/04/2023 09:56:17 10/04/19 24 10/04/2023 COMPL ETE BLOOD COUNT eosinophil,a bsolute 0.1 10*3/ uL 0.0-0. 8 normal Not Available [facility] [address] [place] [address], [address], 10/04/2023 09:56:17 10/04/19 24 10/04/2023 COMPL ETE BLOOD COUNT basophil,abs olute 0.0 10*3/ uL 0.0-0. 3 normal Not Available [facility] [address] [place] [address], [address], 10/04/2023 09:56:17 10/04/19 24 10/04/2023 COMPL ETE BLOOD COUNT % neutrophils 71.2 % 42.0-7 8.0 normal Not Available [facility] [address] [place] [address], [address], 10/04/2023 09:56:17 10/04/19 24 10/04/2023 COMPL ETE BLOOD COUNT % lymphocytes 19.8 % 11.0-4 7.0 normal Not Available [facility] [address] [place] [address], [address], 10/04/2023 09:56:17 10/04/19 24 10/04/2023 COMPL ETE BLOOD COUNT % monocytes 6.0 % 0.0-11 .0 normal Not Available [facility] [address] [place] [address], [address], 10/04/2023 09:56:17 10/04/19 24 10/04/2023 COMPL ETE BLOOD COUNT % eosinophils 2.2 % 0.0-7. 0 normal Not Available [facility] [address] [place] [address], [address], 10/04/2023 09:56:17 10/04/19 24 10/04/2023 COMPL ETE BLOOD COUNT % basophils 0.8 % 0.0-3. 0 normal Not Available [facility] [address] [place] [address], [address], 10/04/2023 09:56:17 10/04/19 24 10/04/2023 COMPL ETE BLOOD COUNT nucleated red cells 0.0 % 0.0-0. 9 normal Not Available [facility] [address] [place] [address], [address], 10/04/2023 09:56:17 10/04/19 24 10/04/2023 COMPL ETE BLOOD COUNT nucleated RBCs, absolute 0.00 10*3/ uL not estab. normal Not Available [facility] [address] [place] [address], [address], 10/04/2023 09:56:17 10/04/19 24 10/04/2023 ESR, AUTOM ATED ESR, automated 5 mm 0-19 normal Not Available [facility] [address] [place] [address], [address], 10/04/2023 12:10:27 10/04/19 24 10/07/2023 QUANT IFERO N TB GOLD qtb gold NEGATI VE negati ve normal Negat jailyn test resul t. M. tuber culos is compl ex infec tion unlik alma delia. Not Available [facility] [address] [place] [address], [address], 10/07/2023 16:56:21 10/04/19 24 10/07/2023 QUANT IFERO N TB GOLD nil 0.03 IU/mL normal Not Available [facility] [address] [place] [address], [address], 10/07/2023 16:56:21 10/04/19 24 10/07/2023 QUANT IFERO N TB GOLD mitogen nil 8.87 IU/mL normal Not Available [facility] [address] [place] [address], [address], 10/07/2023 16:56:21 10/04/19 24 10/07/2023 QUANT IFERO N TB GOLD TB1 nil 0.01 IU/mL normal Not Available [facility] [address] [place] [address], [address], 10/07/2023 16:56:21 10/04/19 24 10/07/2023 QUANT IFERO N TB GOLD TB2 nil 0.03 IU/mL normal The Nil tube value refle cts the backg round inter feron gamma immun e respo nse of the patie nt's blood sampl e. This value has been subtr acted from the patie nt's displ ayed TB and Mitog en resul ts. Lower than expec dylon resul ts with the Mitog en tube preve nt false -nega tive Quant ifero n readi ngs by detec ting a patie nt with a poten tial immun e suppr essiv e condi tion and/o r subop timal pre-a nalyt ical speci men handl ing. The TB1 Antig en tube is coate d with the M. tuber culos is-sp ecifi c antig ens desig valentín to elici t respo nses from TB antig en prime d CD4+ helpe r T-lym phocy [place]. The TB2 Antig en tube is coate d with the M. tuber culos is-sp ecifi c antig ens desig valentín to elici t respo nses from TB antig en prime d CD4+ helpe r and CD8+ cytot oxic T-lym phocy [place]. For addit ional infor vadim guo e refer to https ://ed ucati on.qu danielMediasurface. AwesomeHighlighter/f aq/FA Q204 (This link is being provi ded for infor kali badillo/ educa sita l purpo ses only. ) Not Available [facility] [address] [place] [address], [address], 10/07/2023 16:56:21 07/24/20 24 07/24/2024 COMPL ETE BLOOD COUNT white blood cells 6.1 10*3/ uL 3.8-10 .8 normal Not Available [facility] [address] [place] [address], [address], 07/24/2024 10:27:11 07/24/20 24 07/24/2024 COMPL ETE BLOOD COUNT red blood cells 5.30 10*6/ uL 4.20-5 .80 normal Not Available [facility] [address] [place] [address], [address], 07/24/2024 10:27:11 07/24/20 24 07/24/2024 COMPL ETE BLOOD COUNT hemoglobin 16.1 g/dL 14.0-1 8.0 normal Not Available [facility] [address] [place] [address], [address], 07/24/2024 10:27:11 07/24/20 24 07/24/2024 COMPL ETE BLOOD COUNT hematocrit 47.1 % 40.0-5 2.0 normal Not Available [facility] [address] [place] [address], [address], 07/24/2024 10:27:11 07/24/20 24 07/24/2024 COMPL ETE BLOOD COUNT MCV 89 fL 80-100 normal Not Available [facility] [address] [place] [address], [address], 07/24/2024 10:27:11 07/24/20 24 07/24/2024 COMPL ETE BLOOD COUNT MCH 30 pg 26-35 normal Not Available [facility] [address] [place] [address], [address], 07/24/2024 10:27:11 07/24/20 24 07/24/2024 COMPL ETE BLOOD COUNT MCHC 34 g/dL 32-36 normal Not Available [facility] [address] [place] [address], [address], 07/24/2024 10:27:11 07/24/20 24 07/24/2024 COMPL ETE BLOOD COUNT RDW 15.7 % 11.0-1 5.0 high Not Available [facility] [address] [place] [address], [address], 07/24/2024 10:27:11 07/24/20 24 07/24/2024 COMPL ETE BLOOD COUNT MPV 8.0 fL 6.2-10 .5 normal Not Available [facility] [address] [place] [address], [address], 07/24/2024 10:27:11 07/24/20 24 07/24/2024 COMPL ETE BLOOD COUNT platelet count 190 10*3/ uL 150-40 0 normal Not Available [facility] [address] [place] [address], [address], 07/24/2024 10:27:11 07/24/20 24 07/24/2024 COMPL ETE BLOOD COUNT neutrophil,a bsolute 4.3 10*3/ uL 1.6-8. 4 normal Not Available [facility] [address] [place] [address], [address], 07/24/2024 10:27:11 07/24/20 24 07/24/2024 COMPL ETE BLOOD COUNT lymphocyte,a bsolute 1.2 10*3/ uL 0.4-5. 1 normal Not Available [facility] [address] [place] [address], [address], 07/24/2024 10:27:11 07/24/20 24 07/24/2024 COMPL ETE BLOOD COUNT monocyte,abs olute 0.5 10*3/ uL 0.0-1. 2 normal Not Available [facility] [address] [place] [address], [address], 07/24/2024 10:27:11 07/24/20 24 07/24/2024 COMPL ETE BLOOD COUNT eosinophil,a bsolute 0.2 10*3/ uL 0.0-0. 8 normal Not Available [facility] [address] [place] [address], [address], 07/24/2024 10:27:11 07/24/20 24 07/24/2024 COMPL ETE BLOOD COUNT basophil,abs olute 0.0 10*3/ uL 0.0-0. 3 normal Not Available [facility] [address] [place] [address], [address], 07/24/2024 10:27:11 07/24/20 24 07/24/2024 COMPL ETE BLOOD COUNT % neutrophils 69.9 % 42.0-7 8.0 normal Not Available [facility] [address] [place] [address], [address], 07/24/2024 10:27:11 07/24/20 24 07/24/2024 COMPL ETE BLOOD COUNT % lymphocytes 19.1 % 11.0-4 7.0 normal Not Available [facility] [address] [place] [address], [address], 07/24/2024 10:27:11 07/24/20 24 07/24/2024 COMPL ETE BLOOD COUNT % monocytes 7.5 % 0.0-11 .0 normal Not Available [facility] [address] [place] [address], [address], 07/24/2024 10:27:11 07/24/20 24 07/24/2024 COMPL ETE BLOOD COUNT % eosinophils 3.0 % 0.0-7. 0 normal Not Available [facility] [address] [place] [address], [address], 07/24/2024 10:27:11 07/24/20 24 07/24/2024 COMPL ETE BLOOD COUNT % basophils 0.5 % 0.0-3. 0 normal Not Available [facility] [address] [place] [address], [address], 07/24/2024 10:27:11 07/24/20 24 07/24/2024 COMPL ETE BLOOD COUNT nucleated red cells 0.1 % 0.0-0. 9 normal Not Available [facility] [address] [place] [address], [address], 07/24/2024 10:27:11 07/24/20 24 07/24/2024 COMPL ETE BLOOD COUNT nucleated RBCs, absolute 0.00 10*3/ uL not estab. normal Not Available [facility] [address] [place] [address], [address], 07/24/2024 10:27:11 07/24/20 24 07/24/2024 HEPAT IC (LIVE R) PANEL AST 63 U/L 0-40 high Not Available [facility] [address] [place] [address], [address], 07/24/2024 10:45:12 07/24/20 24 07/24/2024 HEPAT IC (LIVE R) PANEL ALT 69 U/L 0-41 high Not Available [facility] [address] [place] [address], [address], 07/24/2024 10:45:12 07/24/20 24 07/24/2024 HEPAT IC (LIVE R) PANEL alkaline phosphatase 80 U/L 40-129 normal Not Available [facility] [address] [place] [address], [address], 07/24/2024 10:45:12 07/24/20 24 07/24/2024 HEPAT IC (LIVE R) PANEL total protein 7.0 g/dL 6.4-8. 3 normal Not Available [facility] [address] [place] [address], [address], 07/24/2024 10:45:12 07/24/20 24 07/24/2024 HEPAT IC (LIVE R) PANEL albumin 4.2 g/dL 3.5-5. 2 normal Not Available [facility] [address] [place] [address], [address], 07/24/2024 10:45:12 07/24/20 24 07/24/2024 HEPAT IC (LIVE R) PANEL bilirubin, total 0.5 mg/dL 0.1-1. 2 normal Not Available [facility] [address] [place] [address], [address], 07/24/2024 10:45:12 07/24/20 24 07/24/2024 HEPAT IC (LIVE R) PANEL bilirubin, direct <0.2 mg/dL 0.0-0. 3 normal Not Available [facility] [address] [place] [address], [address], 07/24/2024 10:45:12 07/24/20 24 07/24/2024 HEPAT IC (LIVE R) PANEL bilirubin, indirect see below mg/dL _(shivam c) 0.0-1. 0 normal Unabl e to calcu late Indir ect Bilir ubin. Not Available [facility] [address] [place] [address], [address], 07/24/2024 10:45:12 07/24/20 24 07/24/2024 ESR, AUTOM ATED ESR, automated 3 mm 0-19 normal Not Available [facility] [address] [place] [address], [address], 07/24/2024 11:51:28 01/23/20 25 01/22/2025 COMPL ETE BLOOD COUNT white blood cells 6.7 10*3/ uL 3.8-10 .8 normal Not Available [facility] [address] [place] [address], [address], 01/22/2025 14:55:56 01/23/20 25 01/22/2025 COMPL ETE BLOOD COUNT red blood cells 5.15 10*6/ uL 4.20-5 .80 normal Not Available [facility] [address] [place] [address], [address], 01/22/2025 14:55:56 01/23/20 25 01/22/2025 COMPL ETE BLOOD COUNT hemoglobin 15.7 g/dL 14.0-1 8.0 normal Not Available [facility] [address] [place] [address], [address], 01/22/2025 14:55:56 01/23/20 25 01/22/2025 COMPL ETE BLOOD COUNT hematocrit 45.3 % 40.0-5 2.0 normal Not Available [facility] [address] [place] [address], [address], 01/22/2025 14:55:56 01/23/20 25 01/22/2025 COMPL ETE BLOOD COUNT MCV 88 fL 80-100 normal Not Available [facility] Laboratory [address] [place] [address], [id number], 01/22/2025 14:55:56 01/23/20 25 01/22/2025 COMPL ETE BLOOD COUNT MCH 31 pg 26-35 normal Not Available [facility] [address] [place] [address], [id number], 01/22/2025 14:55:56 01/23/20 25 01/22/2025 COMPL ETE BLOOD COUNT MCHC 35 g/dL 32-36 normal Not Available [facility] [address] [place] [address], [address], 01/22/2025 14:55:56 01/23/20 25 01/22/2025 COMPL ETE BLOOD COUNT RDW 15.2 % 11.0-1 5.0 high Not Available [facility] [address] [place] [address], [id number], 01/22/2025 14:55:56 01/23/20 25 01/22/2025 COMPL ETE BLOOD COUNT MPV 8.3 fL 6.2-10 .5 normal Not Available [facility] [address] [place] [address], [id number], 01/22/2025 14:55:56 01/23/20 25 01/22/2025 COMPL ETE BLOOD COUNT platelet count 177 10*3/ uL 150-40 0 normal Not Available [facility] [address] [place] [address], [id number], 01/22/2025 14:55:56 01/23/20 25 01/22/2025 COMPL ETE BLOOD COUNT neutrophil,a bsolute 4.5 10*3/ uL 1.6-8. 4 normal Not Available [facility] [address] [place] [address], [id number], 01/22/2025 14:55:56 01/23/20 25 01/22/2025 COMPL ETE BLOOD COUNT lymphocyte,a bsolute 1.5 10*3/ uL 0.4-5. 1 normal Not Available [facility] [address] [place] [address], [id number], 01/22/2025 14:55:56 01/23/20 25 01/22/2025 COMPL ETE BLOOD COUNT monocyte,abs olute 0.5 10*3/ uL 0.0-1. 2 normal Not Available [facility] [address] [place] [address], [id number], 01/22/2025 14:55:56 01/23/20 25 01/22/2025 COMPL ETE BLOOD COUNT eosinophil,a bsolute 0.2 10*3/ uL 0.0-0. 8 normal Not Available [facility] [address] [place] [address], [id number], 01/22/2025 14:55:56 01/23/20 25 01/22/2025 COMPL ETE BLOOD COUNT basophil,abs olute 0.0 10*3/ uL 0.0-0. 3 normal Not Available [facility] [address] [place] [address], [id number], 01/22/2025 14:55:56 01/23/20 25 01/22/2025 COMPL ETE BLOOD COUNT % neutrophils 66.8 % 42.0-7 8.0 normal Not Available [facility] [address] [place] [address], [address], 01/22/2025 14:55:56 01/23/20 25 01/22/2025 COMPL ETE BLOOD COUNT % lymphocytes 23.1 % 11.0-4 7.0 normal Not Available [facility] [address] [place] [address], [id number], 01/22/2025 14:55:56 01/23/20 25 01/22/2025 COMPL ETE BLOOD COUNT % monocytes 7.0 % 0.0-11 .0 normal Not Available [facility] [address] [place] [address], [address], 01/22/2025 14:55:56 01/23/20 25 01/22/2025 COMPL ETE BLOOD COUNT % eosinophils 2.5 % 0.0-7. 0 normal Not Available [facility] [address] [place] [address], [id number], 01/22/2025 14:55:56 01/23/20 25 01/22/2025 COMPL ETE BLOOD COUNT % basophils 0.6 % 0.0-3. 0 normal Not Available [facility] [address] [place] [address], [address], 01/22/2025 14:55:56 01/23/20 25 01/22/2025 COMPL ETE BLOOD COUNT nucleated red cells 0.1 % 0.0-0. 9 normal Not Available [facility] [address] [place] [address], [address], 01/22/2025 14:55:56 01/23/20 25 01/22/2025 COMPL ETE BLOOD COUNT nucleated RBCs, absolute 0.01 10*3/ uL not estab. normal Not Available [facility] [address] [place] [address], [id number], 01/22/2025 14:55:56 01/23/20 25 01/22/2025 HEPAT IC (LIVE R) PANEL AST 25 U/L 0-40 normal Not Available [facility] [address] [place] [address], [id number], 01/22/2025 15:29:21 01/23/20 25 01/22/2025 HEPAT IC (LIVE R) PANEL ALT 28 U/L 0-41 normal Not Available [facility] [address] [place] [address], [id number], 01/22/2025 15:29:21 01/23/20 25 01/22/2025 HEPAT IC (LIVE R) PANEL alkaline phosphatase 75 U/L 40-129 normal Not Available [facility] [address] [place] [address], [id number], 01/22/2025 15:29:21 01/23/20 25 01/22/2025 HEPAT IC (LIVE R) PANEL total protein 6.9 g/dL 6.4-8. 3 normal Not Available [facility] [address] [place] [address], [id number], 01/22/2025 15:29:21 01/23/20 25 01/22/2025 HEPAT IC (LIVE R) PANEL albumin 4.3 g/dL 3.5-5. 2 normal Not Available [facility] [address] [place] [address], [id number], 01/22/2025 15:29:21 01/23/20 25 01/22/2025 HEPAT IC (LIVE R) PANEL bilirubin, total 0.6 mg/dL 0.1-1. 2 normal Not Available [facility] [address] [place] [address], [id number], 01/22/2025 15:29:21 01/23/20 25 01/22/2025 HEPAT IC (LIVE R) PANEL bilirubin, direct 0.2 mg/dL 0.0-0. 3 normal Not Available [facility] [address] [place] [address], [address], 01/22/2025 15:29:21 01/23/20 25 01/22/2025 HEPAT IC (LIVE R) PANEL bilirubin, indirect 0.4 mg/dL _(shivam c) 0.0-1. 0 normal Not Available [facility] [address] [place] [address], [id number], 01/22/2025 15:29:21 Result Notes None recorded. Medical Equipment None Reported. Allergies Allergen ID Allergen Name Allergen Category Reaction Reaction Severity Criticality Documentation Date Start Date Code Code System Note Provider Name and Address Organization Details Recorded Time 299611 morphine medicatio n rash mild low 04/16/2024 7052 RxNorm Emerita [facility] 4 10:59:48 Medications Name Sig Start Date [...] Not Available Vitals Date Recorded Body height Body mass index (BMI) Body weight Respiratory rate Heart rate Oxygen saturation Oxygen saturation in Arterial blood by Pulse oximetry Systolic And Diastolic Provider Name and Address Organization Details Last Updated DateTime 4 185.42 cm 35.5 kg/m2 622209. 05 g 16 /min 69 /min 96 % 96 % 132/76 mm[Hg] Emerita [facility] 4 08:15:34 Date Recorded Body height Respiratory rate Oxygen saturation Oxygen saturation in Arterial blood by Pulse oximetry Heart rate Body mass index (BMI) Body weight Systolic And Diastolic Provider Name and Address Organization Details Last Updated DateTime 5 185.42 cm 16 /min 96 % 96 % 84 /min 35.9 kg/m2 049494. 12 g 122/68 mm[Hg] Sunil [facility] 5 13:12:45 Date Recorded Body height Body mass index (BMI) Body weight Respiratory rate Heart rate Oxygen saturation Oxygen saturation in Arterial blood by Pulse oximetry Systolic And Diastolic Provider Name and Address Organization Details Last Updated DateTime 3 185.42 cm 33.6 kg/m2 659873. 05 g 16 /min 77 /min 98 % 98 % 122/78 mm[Hg] [facility] 3 09:06:59 Date Recorded Body height Body mass index (BMI) Body weight Respiratory rate Heart rate Oxygen saturation Oxygen saturation in Arterial blood by Pulse oximetry Systolic And Diastolic Provider Name and Address Organization Details Last Updated DateTime 4 185.42 cm 33.8 kg/m2 052746. 45 g 16 /min 80 /min 98 % 98 % 120/72 mm[Hg] [facility] 4 11:01:06 Date Recorded Body height Respiratory rate Body mass index (BMI) Body weight Heart rate Oxygen saturation Oxygen saturation in Arterial blood by Pulse oximetry Systolic And Diastolic Provider Name and Address Organization Details Last Updated DateTime 4 185.42 cm 16 /min 33.8 kg/m2 770718. 65 g 83 /min 96 % 96 % 122/72 mm[Hg] [facility] 4 09:15:30 Social History Question Answer Notes LastModified by Organizat ion Details LastModified Time Tobacco Smoking Status [facility] 09:02:42 What Was The Date Of Your Most Recent Tobacco Screening? 01/22/2025 [email or web address] Information not available 01/22/2025 Has Tobacco Cessation [...] is your level of alcohol consumption? Occasional [email or web address] Information not available 03/29/2023 Mental Status None [...] SNOMED-CT Code Diagnosis ICD10 Code Diagnosis Note [id number] MARY CORINNE CAMERON MD [facility]OL [facility] [address] [place] [address] 01/11/2022 08:35:14 01/11/2022 09:34:01 Psoriatic arthritis [id number] L40.50 61-year-ol d gentleman with history of psoriasis for almost 6 years along with joint pains worsening symptoms for the last 6 to [address] Scarlett Peñaloza with [facility]. Recently started [place] 23 antagonist Tremfya 100 mg every 8 weeks. Has just completed the loading dose.Has failed Stelara as well as Taltz.He is also failed the anti-TNF therapy including Enbrel and Humira.He has not tried the convention al disease modifying medication s such as methotrexa te or leflunomid e. Clinical examinatio n is significan t for very active psoriatic lesions involving both upper as well as lower extremitie s beside torso and scalp.Acti ve inflammato ry arthritis with tender interphala ngeal joints, tender and swollen bilateral wrist as well as tender elbows.Fur ther has cervical degenerati ve disc disease especially at the lower cervical spine C5-6 and C6-7.I did not appreciate any radiculopa thy or myelopathy . Deep tendon reflexes are intact. In summary psoriatic arthritis, clinically symptomati c. I agree with the current addition of Tremfya as a biologic treatment to control his skin as well as joints. However due to the aggressive nature of his skin involvemen t at the diffuse nature of his joints involvemen t I would suggest addition of methotrexa te as a complement to Tremfya. The side effect profile of methotrexa te is reviewed in detail with the patient and his . He will start methotrexa te at 10 mg once a week for the first 2 weeks and depending upon his tolerance will increase the dose to 15 mg once a week. I will reassess him in about 8 weeks. He will also take folic acid 1 mg once a day. I also discussed importance of weight loss and low-carb diet. He is diabetic and would benefit from weight loss beside low sugar diet. Baseline lab studies obtained. Long-term drug therapy [id number] Z79.899 He will need to have a TB test, hepatitis panel and chest x-ray once a year while taking biologic therapy. He will also get CBC liver function panel and creatinine every 3 months. Chest x-rays obtained today. [id number] MARY CORINNE CAMERON MD RHEUMATOL [facility] [address] [place] [address] 03/30/2022 12:51:28 04/05/2022 09:45:13 Psoriatic arthritis [id number] L40.50 61-year-ol d gentleman with psoriasis and psoriatic arthritis. Followed by Dr. Ana Peñaloza with [facility]. On IL 23 antagonist Tremfya 100 mg every 8 weeks. Has failed Stelara as well as Taltz.He is also failed the anti-TNF therapy including Enbrel and Humira. On his initial visit, we have added the methotrexa te which is currently at 15 mg once a week in combinatio n with folic acid 1 mg once a day. He seems to be doing much better on the current combinatio n. Both skin and joint symptoms are fairly stable. Is does have some degenerati ve process involving his spine specially the cervical spine but without any radicular symptoms. No myelopathy noted. I suggested him to continue with the current combinatio n of Tremfya 100 mg q. 8 weeks under the direction of dermatolog y and methotrexa te 15 mg once a week along with folic acid 1 mg once a day. Obtain labs q. 3 months.Obt ain TB test every 12 months. I also discussed importance of weight loss and low-carb diet. He is diabetic and would benefit from weight loss beside low sugar diet. Long-term current use of immunosuppressive drug [id number] Z79.899 Labs repeated on the current combinatio n [id number] MARY CAMERON MD RHEUMATOL [address] [address] 09/28/2022 10:35:09 09/28/2022 14:58:38 Psoriatic arthritis [id number] L40.50 62-year-ol d gentleman with psoriasis and psoriatic arthritis. Followed by Dr. Ana Peñaloza with [facility]. On [place] 23 antagonist Tremfya 100 mg every 8 weeks. Has failed Stelara as well as Taltz.He is also failed the anti-TNF therapy including Enbrel and Humira. On methotrexa te 15 mg once a week in combinatio n with folic acid 1 mg once a day. Overall has done quite well with improvemen t in his joint symptoms. Still has some activity of the skin. No interval infections . Suggested to increase the dose of methotrexa te to 20 mg once a week and maintain folic acid 1 mg once a day. He will continue with Tremfya 100 mg every 8 weeks under the direction of his dermatolog ist. Reassess in the summer. If still shows activity of the skin, we might have to switch to another biologic options include Wai inhibitor or going on the infusion anti-TNF therapy such as Simponi or Remicade. I also discussed importance of weight loss and low-carb diet. He is diabetic and would benefit from weight loss beside low sugar diet. Long-term current use of immunosuppressive drug [id number] Z79.899 Labs repeated on the current combinatio n [id number] MARY CAMERON MD RHEUMATOL [address] [address] 03/29/2023 08:59:26 03/30/2023 04:13:34 Psoriatic arthritis [id number] L40.50 62-year-ol d gentleman with psoriasis and psoriatic arthritis. Followed by Dr. Ana lomas with [facility]. On IL 23 antagonist Tremfya 100 mg every 8 weeks. Has failed Stelara as well as Taltz.He is also failed the anti-TNF therapy including Enbrel and Humira. On methotrexa te 20 mg once a week in combinatio n with folic acid 1 mg once a day. Overall has done quite well with improvemen t in his joint symptoms. Still has some activity of the skin. No interval infections . Continue with the current methotrexa te at 20 mg weekly in combinatio n with folic acid 1 mg daily.He will continue with Tremfya 100 mg every 8 weeks under the direction of his dermatolog ist. Repeat the labs follow-up in 6 months. I also discussed importance of weight loss and low-carb diet. He is diabetic and would benefit from weight loss beside low sugar diet. He will come see me again in 6 months. Long-term current use of immunosuppressive drug [id number] Z79.899 Labs from 09/2022 personally reviewed and appear normal We will repeat labs again today, obtain CBC liver function and ESR TB test is up to date repeat in September 2023. [id number] MARY CAMERON MD RHEUMATOL [facility] [address] [place] [address] 10/04/2023 07:58:21 10/07/2023 04:04:25 Psoriatic arthritis [id number] L40.50 63-year-ol d gentleman with psoriasis and psoriatic arthritis. Followed by Dr. Ana lomas with [facility]. On IL 23 antagonist Tremfya 100 mg every 8 weeks. Has failed Stelara as well as Taltz.He is also failed the anti-TNF therapy including Enbrel and Humira. On methotrexa te 20 mg once a week in combinatio n with folic acid 1 mg once a day. Overall has done quite well with improvemen t in his joint symptoms.M inimal activity of the skin. No interval infections . Continue with the current methotrexa te at 20 mg weekly in combinatio n with folic acid 1 mg daily.He will continue with Tremfya 100 mg every 8 weeks under the direction of his dermatolog ist. Repeat the labs follow-up in 6 months. I also discussed importance of weight loss and low-carb diet. He is diabetic and would benefit from weight loss beside low sugar diet. He will come see me again in 6 months. Long-term current use of immunosuppressive drug [id number] Z79.899 Labs from 03/29/23 personally reviewed and appear normal We will repeat labs again today, obtain CBC liver function and ESR TB test 09/28/2022 normal, repeat today. [id number] MARY CAMERON MD RHEUMATOL [address] [address] 04/16/2024 10:25:46 04/18/2024 04:23:39 Psoriatic arthritis [id number] L40.50 64-year-ol d gentleman with psoriasis and psoriatic arthritis. Followed by Dr. Ana lomas with [facility]. On IL 23 antagonist Tremfya 100 mg every 8 weeks. Has failed Stelara as well as Taltz.He is also failed the anti-TNF therapy including Enbrel and Humira. On methotrexa te 20 mg once a week in combinatio n with folic acid 1 mg once a day. Overall has done quite well with improvemen t in his joint symptoms.M inimal activity of the skin. No interval infections .Does not have dactylitis or enthesitis . Stable exam with chronic deformitie s at the wrist joints. Dependent edema. Continue with the current methotrexa te at 20 mg weekly in combinatio n with folic acid 1 mg daily.He will continue with Tremfya 100 mg every 8 weeks under the direction of his dermatolog ist. Repeat the labs follow-up in 6 months. I also discussed importance of weight loss and low-carb diet. He is diabetic and would benefit from weight loss beside low sugar diet. He will come see me again in 6 months. Long-term current use of immunosuppressive drug [id number] Z79.899 10/04/23 labs all normal. We will repeat labs again today, obtain CBC liver function and ESR TB test 10/04/23 normal, repeat in 2024. Dupuytren' s contracture of finger [id number] M72.0 Dupuytren contractur e L hand middle and ring, R hand middle finger and ring finger. [id number] MARY CAMERON MD RHEUMATOL [facility] [address] [place] [address] 07/24/2024 09:07:05 07/28/2024 04:12:52 Psoriatic arthritis [id number] L40.50 64-year-ol d gentleman with psoriasis and psoriatic arthritis. Followed by Dr. Ana lomas with [facility]. On IL 23 antagonist Tremfya 100 mg every 8 weeks. Has failed Stelara as well as Taltz. He is also failed the anti-TNF therapy including Enbrel and Humira. On methotrexa te 20 mg once a week in combinatio n with folic acid 1 mg once a day. Overall has done quite well with improvemen t in his joint symptoms.N o active synovitis or effusions. No interval infections .Does not have dactylitis or enthesitis .Stable chronic deformitie s at the wrist joints. Minimal dependent edema. Continue with the current methotrexa te at 20 mg weekly in combinatio n with folic acid 1 mg daily.He will continue with Tremfya 100 mg every 8 weeks under the direction of his dermatolog ist. Repeat the labs follow-up in 6 months. I also discussed importance of weight loss and low-carb diet. He is diabetic and would benefit from weight loss beside low sugar diet. He will come see me again in 6 months. Long-term current use of immunosuppressive drug [id number] Z79.899 10/04/23 labs all normal. We will repeat labs again today, obtain CBC liver function and ESR TB test 10/04/23 normal, repeat in 2024. Dupuytren' s contracture of finger [id number] M72.0 Dupuytren contractur e L hand middle and ring, R hand middle finger and ring finger. Chronic and stable. Continue with local care. At present hold off on any surgical interventi ons. [id number] MARY CAMERON MD RHEUMATOL [facility] [address] [place] [address] 01/22/2025 13:02:50 01/22/2025 13:55:14 Psoriatic arthritis [id number] L40.50 64-year-ol d gentleman with psoriasis and psoriatic arthritis. Followed by Dr. Ana lomas with [facility]. On IL 23 antagonist Tremfya 100 mg [...] months. Long-term current use of immunosuppressive drug [id number] Z79.899 10/04/23 labs all normal. We will repeat labs again today, obtain CBC liver function and ESR TB test 10/04/23 normal, repeat today. Repeat CBC and liver function panel Dupuytren' s contracture of finger [id number] M72.0 Dupuytren contractur e L hand middle and ring, R hand middle finger and ring finger. Chronic and stable. Continue with local care. At present hold off on any surgical interventi ons. Bilateral shoulder osteoarthritis [id number] M19.011 M19.012 Traumatic. Moderate to severe degenerati ve changes. Left shoulder more than right. Discussed the clinical findings and range of motion exercises. Suggested to DC celecoxib and start relafen 750 mg twice daily. Health Concerns Section Related Observation LastModified by Organization Anette ls LastModified Time None Recorded Concern Status LastModified by Organization Details LastModified Time None Recorded Advance Directives Directive None Recorded Payers Insurance Date Sequence Insurance Name Policy Number Policy Her Covered Member ID Her Member ID Guarantor Name 01/19/2025 2 [place] Catarino Arias Mell [id number] Catarino Arias Mell 01/26/2025 1 [place] [employer] [place] [employer] 113 Khushbu Arias Mell [id number] Catarino Arias Mell Notes Date Note Type Note Provider Name and Address Organization Details Recorded Time 03/29/2023 text/html 62 y/o m here fo r a follow-up on psoriatic arthritis. Since last visit, has done much better on the methotrexate. Further he remains on Tremfya. 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 Just tripped I was a bit clumsy getting down. No loss of consciousness. No fractures. Tolerating the combination well. Joints are doing fairly well. No interval infections. MARY CAMERON MD [address] [place] [address], [phone], [facility] 03/29/2023 10:15:47 10/04/2023 text/html 63 y/o m here fo r a follow-up on psoriatic arthritis. Byron was last seen here in our rheumatology department 03/29/2023 Doing much better on the combination of methotrexate and Tremfya. Tolerating the combination well. Joints are doing fairly well. No interval infections. MARY CAMERON MD [address] [place] [address], [phone], [facility] 10/06/2023 13:51:43 04/16/2024 text/html 64 y/o m here fo r a follow-up on psoriatic arthritis. Byron was last seen here in our rheumatology department 10/04/23. Doing much better on the combination of methotrexate 20 mg q weekly and Tremfya 100mg q 8 weeks.Dermatologis t is . Tolerating the combination well. Joints are doing fairly well.skin is stable. No interval infections. MARY CAMERON MD [address] [place] [address], [phone], [facility] 04/17/2024 08:05:52 07/24/2024 text/html 64 y/o m here fo r a follow-up on psoriatic arthritis. Byron was last seen here in our rheumatology department 04/16/24. Doing much better on the combination of methotrexate 20 mg q weekly and Tremfya 100mg q 8 weeks. No side effects reported.Marisol mazariegos is . Tolerating the combination well. skin is stable. Every once in a while a flare. No interval infections. MARY CAMERON MD [address] [place] [address], [phone], [facility] 07/27/2024 11:06:15 01/22/2025 text/html 64 y/o m here fo [...] take celecoxib and gabapentin. No side effects reported.Marisol mazariegos is . Tolerating the combination well. skin is stable. Every once in a while a flare. No interval infections. MARY CAMERON MD [address] [place] [address], [phone], [facility] 01/22/2025 13:48:57
--- OUTSIDE RECORDS SUMMARY | 2025-03-20 11:38 | XMS_ITS | Patient Health Record ---
Author Organization [facility] Address [address] [place], [place] [id number] Care Team Providers Care Dairy Nutrition Specialist Name Role Phone Carrillo Bradford Primary Care Provider Mati Flores Unavailable [phone] Allergies No Known Allergies Results Component Value Reference Range Notes Glycohemoglobin A1c (in hous e) Reviewed date:11/17/2024 04:31:55 PM Interpretation:7.3% Performing Lab: Notes/Report: 7.3% glycohemoglobin 7.3% 5 - 6.5 % P-Comprehensive Metabolic Pa quintin (CMP) Reviewed date:11/17/2024 04:31:55 PM Interpretation:gluc 178 Performing Lab: Notes/Report: Test performed by [facility] [address] [place] [address] , [address], [place] [address] Curtis Gonzalez MD, Risk Assessor CLIA: [id number] Sodium 139 135-145 mmol/L Potassium 4.3 3.5-5.3 [...] 176 Performing Lab: Notes/Report: Test performed by [facility], [address] , [place] [address] Curtis Gonzalez MD, Risk Assessor CLIA: [id number] Cholesterol 149 <200 mg/dL Triglycerides 176 <150 [...] Results: 67 Units: mg/dL % Change: -11% Glycohemoglobin A1c (in hous e) Reviewed date:03/09/2025 11:42:20 AM Interpretation: Performing Lab: Notes/Report: glycohemoglobin 7.5% 5 - 6.5 % P-Comprehensive Metabolic Pa quintin (CMP) Reviewed date:03/11/2025 05:48:25 PM Interpretation:gluc 202, a1c 7.5 reviewed in office with patient Performing Lab: Notes/Report: Test performed by [facility] [address] [place] [address] , [address], [place] [address] Curtis Gonzalez MD, Risk Assessor CLIA: [id number] Sodium 138 135-145 mmol/L Potassium 4.6 3.5-5.3 [...] 0.4 <0.2-1.2 mg/dL A/G Ratio 1.7 1.1-2.5 Glycohemoglobin A1c (in hous e) Reviewed date:06/15/2024 09:44:08 AM Interpretation:6.6% Performing Lab: Notes/Report: 6.6% glycohemoglobin 6.6% 5 - 6.5 % P-Comprehensive Metabolic Pa quintin (CMP) Reviewed date:06/16/2024 04:25:01 PM Interpretation:gluc 182 Performing Lab: Notes/Report: Test performed by [facility] [address] [place] [address] , [address], [place] [address] Curtis Gonzalez MD, Risk Assessor CLIA: [id number] Sodium 142 135-145 mmol/L Potassium 4.3 3.5-5.3 [...] 156 Performing Lab: Notes/Report: Test performed by [facility] [address] [place] [address] , [place] [address] Curtis Gonzalez MD, Risk Assessor CLIA: [id number] Cholesterol 156 <200 mg/dL Triglycerides 156 <150 [...] Results: 76 Units: mg/dL % Change: - Medications Medication SIG (Take, Route, Frequency, Duration) Notes Start Date End Date Status DULoxetine HCl 60 MG TAKE 1 CAPSULE BY M OUTH EVERY DAY; Duration: 30 days Active Nabumetone 750 MG as directed Orally t a day Active traZODone HCl 50 MG TAKE 1 TABLET BY ZURI TH DAILY AT BEDTIME; Duration: 90 Active Tremfya 100 MG/ML as directed subcutaneously every 8 weeks Active Celecoxib 200 mg TAKE ONE CAPSULE BY MOUTH EVERY DAY; Duration: 90 days Not-Taking NIZORAL CREAM 2 % DIRECTED TO [facility] 05/30/2021 Active Dexcom G7 Sensor - as directed 03/08/2025 Active Esomeprazole Magnesium 20 MG TAKE 1 CAPSULE BY MOUTH DAILY; Duration: 90 Active metFORMIN HCl 500 MG TAKE 2 TABLETS BY M OUTH TWICE DAILY; Duration: 90 Active Rosuvastatin Calcium 5 MG TAKE 1 TABLET BY MOUTH EVERY DAY AT BEDTIME; Duration: 30 Active Methotrexate 2.5 MG 6 tabs orally once a week; Duration: 30 days Active Glimepiride 4 MG 1 tablet with breakf ast or the first main meal of the day Orally Once a day; Duration: 90 days 03/08/2025 Active Jardiance 25 MG 1 tablet Orally Once a day in the morning; Duration: 90 days Active Dexcom G7 Dye Can Operator - as directed 03/08/2025 Active Gabapentin 600 MG 1 tab(s) orally 4 ti mes a day; Duration: 30 day(s) 12/08/2024 Active Immunizations Vaccine Route Administration Date Status Comme nts COVID 19 Moderna Unknown 11/11/2020 Administered COVID 19 Moderna Unknown 12/23/2020 Administered COVID 19 Moderna Unknown 08/30/2021 Administered Flublok IM Intramuscular 05/30/2021 Administered Fluzone Quad (6months&older) IM Intramuscular 08/16/2016 Administered Fluzone Quad (6months&older) IM Intramuscular 06/22/2019 Administered Fluzone Quad (6months&older) IM Intramuscular 06/27/2020 Administered Fluzone Quad (6months&older) IM Intramuscular 10/01/2022 Administered PNEUMOVAX 23 VACCINE IM Intramuscular 10/23/2021 Administered Pt tolerated we ll Shingrix IM Intramuscular 08/01/2021 Administered Tetanus Tdap-Adacel (over 7yrs) Unknown 11/17/2014 Pending Tetanus Tdap-Adacel (over 7yrs) Unknown 12/24/2022 Administered xFluzone (6mos and older)-trivalent IM Intramuscular 08/13/2011 Administered xFluzone (6mos and older)-trivalent IM Intramuscular 09/15/2013 Administered Problems Problem Type SNOMED Code ICD Code Onset Dates Problem Status W/U Status Risk Notes Problem Information temporarily unavailable Morbid obesity (E66.01) Active confirmed Problem Information temporarily unavailable Right knee pain (M25.561) Active confirmed Problem Information temporarily unavailable Knee pain, left (M25.562) Active confirmed Problem Information temporarily unavailable Depression with anxiety (F41.8) Active confirmed Problem Information temporarily unavailable Psoriasis (L40.9) Active confirmed Problem Information temporarily unavailable Mixed hyperlipidemia (E78.2) Active confirmed Problem Information temporarily unavailable Other chronic pain (G89.29) Active confirmed Problem Information temporarily unavailable Other chronic pain (G89.29) Active confirmed Problem Information temporarily unavailable Sleep disturbance (G47.9) Active confirmed Problem Information temporarily unavailable Arthralgia of right hip (M25.551) Active confirmed Problem Information temporarily unavailable Chronic GERD (K21.9) Active confirmed Problem Information temporarily unavailable Carpal tunnel syndrome of right wrist (G56.01) Active confirmed Problem Information temporarily unavailable Osteoarthritis of spine with radiculopathy, cervical region (M47.22) Active confirmed Problem Information temporarily unavailable Psoriatic arthritis (L40.50) Active confirmed Problem Information temporarily unavailable Type 2 diabetes mellitus without complication, without long-term current use of insulin (E11.9) Active confirmed Problem Information temporarily unavailable Seasonal allergic rhinitis, unspecified allergic rhinitis trigger (J30.2) Active confirmed Problem Information temporarily unavailable Pure hypercholesterolemia (E78.00) Active confirmed Problem Information temporarily unavailable Benign prostatic hyperplasia without lower urinary tract symptoms (N40.0) Active confirmed Problem Information temporarily unavailable Carpal tunnel syndrome on both sides (G56.03) Active confirmed Problem Information temporarily unavailable Vertebrobasilar insufficiency (G45.0) Active confirmed Problem Information temporarily unavailable Dupuytren's contracture of both hands (M72.0) Active confirmed Problem Information temporarily unavailable Type 2 diabetes mellitus with other specified complication, unspecified whether prison insulin use (E11.69) Active confirmed Problem Information temporarily unavailable Rheumatoid arthritis, involving unspecified site, unspecified whether rheumatoid factor present (M06.9) Active confirmed Vital Signs Heart Rate 84 /min 03/08/2025 Blood pressure diastolic 74 mm Hg 03/08/2025 Height 72.50 in 03/08/2025 Blood pressure systolic 126 mm Hg 03/08/2025 Weight 259.2 lbs 03/08/2025 BMI 34.67 kg/m2 03/08/2025 Encounters Encounter Location Date Provider Diagnosis [facility] [address] [id number] 06/12/2024 Carrillo Bradford Type 2 diabetes ramesh itus without complication, without long-term current use of insulin E11.9 ; Mixed hyperlipidemia E78.2 ; Psoriasis L40.9 ; Pain in left shoulder M25.512 and Other chronic pain G89.29 [facility] [address] [id number] 11/13/2024 Carrillo Bradford Type 2 diabetes ramesh itus without complication, without long-term current use of insulin E11.9 ; Other chronic pain G89.29 and Mixed hyperlipidemia E78.2 [facility] [address] [id number] 03/08/2025 Carrillo Bradford Type 2 diabetes ramesh itus without complication, without long-term current use of insulin E11.9 ; Psoriatic arthritis L40.50 ; Depression with anxiety F41.8 ; Type 2 diabetes mellitus with other specified complication, unspecified whether blood bank calendar control clerk insulin use E11.69 ; Morbid obesity E66.01 and Rheumatoid arthritis, involving unspecified site, unspecified whether rheumatoid factor present M06.9 [facility] [address] [place], [place] [id number] 03/16/2025 Carrillo Bradford [facility] [address] [place], [place] [id number] 04/08/2024 Mati Flores [facility] [address] [place], [place] [id number] 06/16/2024 Carrillo Bradford [facility] [address] [place], [place] [id number] 08/19/2024 Carrillo Bradford [facility] [address] [place], [place] [id number] 11/17/2024 Carrillo Bradford [facility] [address] [place], [place] [id number] 12/07/2024 Carrillo Bradford [facility] [address] [place], [place] [id number] 01/13/2025 Carrillo Bradford [facility] [address] [place], [place] [id number] 03/09/2025 Carrillo Bradford Assessments Encounter Date Diagnosis (ICD Code) Assessment Notes Treatment Notes Treatment Clinical Notes Section Notes 03/08/2025 Psoriatic arthritis (ICD-10 - L40.50) 03/08/2025 Type 2 diabetes mellitus without complication, without long-term current use of insulin (ICD-10 - E11.9) 06/12/2024 Mixed hyperlipidemia (ICD-10 - E78.2) 06/12/2024 Type 2 diabetes mellitus without complication, without long-term current use of insulin (ICD-10 - E11.9) 11/13/2024 Other chronic pain (ICD-10 - G89.29) 11/13/2024 Type 2 diabetes mellitus without complication, without long-term current use of insulin (ICD-10 - E11.9) 11/13/2024 Mixed hyperlipidemia (ICD-10 - E78.2) 03/08/2025 Depression with anxiety (ICD-10 - F41.8) 06/12/2024 Psoriasis (ICD-10 - L40.9) 03/08/2025 Type 2 diabetes mellitus with other specified complication, unspecified whether blood bank calendar control clerk insulin use (ICD-10 - E11.69) 06/12/2024 Pain in left shoulder (ICD-10 - M25.512) 06/12/2024 Other chronic pain (ICD-10 - G89.29) 03/08/2025 Morbid obesity (ICD-10 - E66.01) 03/08/2025 Rheumatoid arthritis, involving unspecified site, unspecified whether rheumatoid factor present (ICD-10 - M06.9) Plan Of Treatment Next Appt Details Provider Name:Carrillo Jefferson er, 07/16/2025 10:00:00 AM, [address], [address], [place], [place], [id number], Insurance Providers Payer Name Payer Address Payer Phone Subscriber Number Group Number Insured Name Patient Relationship to Insured Coverage Start Date Coverage End Date [facility]IGUELINA ME[facility] [address] [place] [address] [id number] Catarino Monte Self - patient is the insured Medical (General) History Medical History History ICD Code 10/2010 C-spine neg Psoriasis, Dr. Joni MONTOYA 19 vaccine, Moderna December 2020 Surgical History Surgery Date(Month/Year) left knee right knee ( cyst) gum 1985 right shoulder 12/2012 Plantar surgery lt foot 08/2013 Hospitalization History Reason Date(Month/Year) inflammation of muscle of the heart 2005 pneumonia ( as a child) X 2 times
[2025-03-20] MEDS: TRANEXAMIC ACID 1,000 MG/10 ML VIAL 1000 MG TP (11:55)
--- NOTE | 2025-03-20 12:28 | PC.NURSE ---
Provider at bedside applying steri strips
[2025-03-20 12:43] VITALS: BP 139/69; PULSE 81; RESP 18; TEMP 36.9; O2SAT 98
== END 2025-03-20 12:44 | disposition home or self-care (01) ==
PROVIDERS: Emergency Provider Student in an Organized Health Care Education/Training Program; PCP Family Medicine
DX: S61.401A Unspecified open wound of right hand, initial encounter (principal); W22.8XXA Striking against or struck by other objects, initial encounter
CPT/HCPCS: 99283

== ENCOUNTER 2025-08-02 09:07 | Outpatient (CLI) | payer BC, MEDICARE, SELFPAY ==
--- OUTSIDE RECORDS SUMMARY | 2024-02-28 04:15 | XMS_ITS ---
Author Organization [facility] Address [address] [place] [id number] Care Team Providers Care Instructor Business Education Name Role Phone Carrillo Bradford Primary Care Provider [phone] Results Component Value Reference Range Notes P-Comprehensive Metabolic Pa quintin (CMP) Reviewed date:03/02/2024 05:11:28 PM Interpretation:co2- 19, gluc 186, alt 59, ast 52 Performing Lab: Notes/Report: Test performed by [facility] [address] [place] [address] , [address], [place] [address] Curtis Gonzalez MD, Glazier Supervisor CLIA: [id number] Sodium 136 135-145 mmol/L Potassium 4.8 3.5-5.3 mmol/L Chloride 102 97-108 mmol/L CO2 19 22-32 mmol/L Glucose 186 65-99 mg/dL BUN 16 8-23 mg/dL Creatinine 0.77 0.70-1.30 mg/dL Calcium 9.1 8.6-10.4 mg/dL eGFR by Creatinine 99 >59 mL/min/1.73m2 Protein 6.7 6.0-8.3 g/dL Albumin 4.4 3.5-5.3 g/dL Alkaline Phosphatase 87 40-129 IU/L ALT (SGPT) 59 <5-55 IU/L AST (SGOT) 52 <5-46 IU/L Bilirubin, Total 0.5 <0.2-1.2 mg/dL A/G Ratio 1.9 1.1-2.5 mg/dL P-TSH Reviewed date:03/02/2024 05:11:28 PM Interpretation:Normal Performing Lab: Notes/Report: Test performed by [facility], [employer][note 3][address] [facility] , [address], [place] [address] Curtis Gonzalez MD, Glazier Supervisor CLIA: [id number] TSH 2.77 0.43-5.25 mU/L REASON FOR VISIT labs Encounters Encounter Location Date Provider Diagnosis [facility] [address] [facility] [address] [facility] [address] [place] [id number] 02/28/2024 Carrillo Bradford Type 2 diabetes mellitus without complication, without long-term current use of insulin E11.9 and Dizziness R42 Assessments Encounter Date Diagnosis (ICD Code) Assessment Notes Treatment Notes Treatment Clinical Notes Section Notes 02/28/2024 Type 2 diabetes mellitus without complication, without long-term current use of insulin (ICD-10 - E11.9) 02/28/2024 Dizziness (ICD-10 - R42) Plan Of Treatment Next Appt Details Provider Name:Carrillo Jefferson er, 08/13/2025 10:45:00 AM, [address] [facility] [address] [facility], [facility] [place], [id number], Progress Notes * MELLCatarino AryOB:0 1960 (65 yo M)Acc No.[id number]:02/28/2024 Progress Notes Patient: Catarino LOZAy Provider: Carrillo Bradford M.D. :1960 A ge:63 Y S ex:Male Date:02/28/2024 Address:[address] [place] [address] [place], [id number] Subjective: * Chief Complaints: * 1 . Labs. * Medical History: Objective: * Vitals: Assessment: * Assessment: 1. T ype 2 diabetes mellitus without complication, without long-term current use of insulin - E11.9 2 . D izziness - R42 Plan: * Treatment: Value Reference Range A /G Ratio 1.9 1.1-2.5 - mg/dL * A lbumin 4.4 3.5-5.3 - g/dL * A lkaline Phosphatase 87 40-129 - IU/L * A LT (SGPT) 59 H <5-55 - IU/L * A ST (SGOT) 52 H <5-46 - IU/L * B ilirubin, Total 0.5 <0.2-1.2 - mg/dL * B UN 16 8-23 - mg/dL * C alcium 9.1 8.6-10.4 - mg/dL * C hloride 102 97-108 - mmol/L * C O2 19 L 22-32 - mmol/L * C reatinine 0.77 0.70-1.30 - mg/dL * G lucose 186 H 65-99 - mg/dL * P otassium 4.8 3.5-5.3 - mmol/L * S odium 136 135-145 - mmol/L * P rotein 6.7 6.0-8.3 - g/dL * e GFR by Creatinine 99 >59 - mL/min/1.73m2 * Nidia Nunez 03/02/2024 5:11:1 9 PM >See phone encounter 2.?Dizziness?LAB: P-TSH (Collection Date & Time - 02/27/2024 02:50 PM)?Normal* Value Reference Range T SH 2.77 0.43-5.25 - mU/L * Nidia Nunez 03/02/2024 5:11:1 9 PM >See phone encounter * Images: Billing Information: * Visit Code: * Procedure Codes: * Electronic signature of Carrillo Bradford MD on 08/02/2025 at 09:15 AM EST Sign off status: Pending * Provider: Carrillo Bradford M.D. Date: 0 02/28/2024 Generated for Tenzini ng/Famauriceg/eTransmitting on: 1 10/03/2024 09:15 AM EST
--- OUTSIDE RECORDS SUMMARY | 2024-06-12 04:30 | XMS_ITS ---
Author Organization [facility] Address [address] [facility] [address] [place], [place] [id number] Care Team Providers Care Ciso Name Role Phone Carrillo Bradford Primary Care Provider [phone] Allergies No Known Allergies Results Component Value Reference Range Notes Glycohemoglobin A1c (in hous e) Reviewed date:06/15/2024 09:44:08 AM Interpretation:6.6% Performing Lab: Notes/Report: 6.6% glycohemoglobin 6.6% 5 - 6.5 % P-Comprehensive Metabolic Pa quintin (CMP) Reviewed date:06/16/2024 04:25:01 PM Interpretation:gluc 182 Performing Lab: Notes/Report: Test performed by [facility], [facility] [address] [place] [address] , [address], [place] [address] Curtis Gonzalez MD, Respooler CLIA: [id number] Sodium 142 135-145 mmol/L Potassium 4.3 3.5-5.3 mmol/L Chloride 104 97-108 mmol/L CO2 24 22-32 mmol/L Glucose 182 65-99 mg/dL BUN 16 8-23 mg/dL Creatinine 0.74 0.70-1.30 mg/dL Calcium 9.2 8.6-10.4 mg/dL eGFR by Creatinine 100 >59 mL/min/1.73m2 Protein 6.9 6.0-8.3 g/dL Albumin 4.5 3.5-5.3 g/dL Alkaline Phosphatase 98 40-129 IU/L ALT (SGPT) 33 <5-55 IU/L AST (SGOT) 30 <5-46 IU/L Bilirubin, Total 0.6 <0.2-1.2 mg/dL A/G Ratio 1.9 1.1-2.5 P-Lipid Panel Reviewed date:06/16/2024 04:25:01 PM Interpretation:trigs 156 Performing Lab: Notes/Report: Test performed by [facility], [facility] [address] [place] [address] , [place], [place] [address] Curtis Gonzalez MD, Respooler CLIA: [id number] Cholesterol 156 <200 mg/dL Triglycerides 156 <150 mg/dL HDL Cholesterol 49 >39 mg/dL Cholesterol / HDL Ratio 3.18 0.00-4.99 Ratio Non-HDL Cholesterol 107 <130 mg/dL LDL Cholesterol (Calculation) 76 <130 mg/dL LDL Cholesterol Levels* Less than 100 mg/dL Optimal 100 to 129 mg/dL Near Optimal/ Above Optimal 130 to 159 mg/dL Borderline High 160 to 189 mg/dL High 190 mg/dL and above Very High * Categories as recommended by the 2004 ATPIII guidelines LDL/HDL Ratio 1.5 <3.3 Ratio LDL Cholesterol Patient History Test Date: 06/12/2024 LDL Results: 76 Units: mg/dL % Change: - REASON FOR VISIT 4 months, Needs labs, diabetic eye exam, & flu vaccine Medications Medication SIG (Take, Route, Frequency, Duration) Notes Start Date End Date Status DULoxetine HCl 60 MG TAKE 1 CAPSULE BY M OUTH EVERY DAY; Duration: 30 days Active Tremfya 100 MG/ML as directed subcutan eously every 8 weeks Active Methotrexate 2.5 MG 6 tabs orally once a week Active Gabapentin 600 MG 1 tab(s) orally 4 ti mes a day; Duration: 30 day(s) 04/08/2024 Active NIZORAL CREAM 2 % DIRECTED TO [employer]FF[employer] URI AREAS Q DAY 05/30/2021 Active traZODone HCl 50 mg 1 tab(s) Orally Once a day at bedtime; Duration: 90 days Active Jardiance 25 MG 1 tablet Orally Once a day in the morning; Duration: 90 days Active Celecoxib 200 mg TAKE ONE CAPSULE BY MOUTH EVERY DAY; Duration: 90 days Active Rosuvastatin Calcium 5 MG TAKE 1 TABLET BY MOUTH EVERY DAY AT BEDTIME; Duration: 30 Active Esomeprazole Magnesium 20 mg 1 capsule Orally once daily; Duration: 90 days Active Glimepiride 2 MG 1 tab(s) orally once a day Active metFORMIN HCl 500 MG 2 tab(s) Orally Two times a day; Duration: 90 days Active Problems Problem Type SNOMED Code ICD Code Onset Dates Problem Status W/U Status Risk Notes Problem Chronic pain (43646900) Other chronic pain (G89.29) Active confirmed Vital Signs Blood pressure systolic 132 mm Hg 06/12/20 24 Blood pressure diastolic 80 mm Hg 024 Heart Rate 72 /min 06/12/2024 Height 72.50 in 06/12/2024 Weight 253.0 lbs 06/12/2024 BMI 33.84 kg/m2 06/12/2024 Encounters Encounter Location Date Provider Diagnosis [facility] [address] [facility] [address] [place], [place] [id number] 06/12/2024 Carrillo Bradford Type 2 diabetes ramesh itus without complication, without long-term current use of insulin E11.9 ; Mixed hyperlipidemia E78.2 ; Psoriasis L40.9 ; Pain in left shoulder M25.512 and Other chronic pain G89.29 Assessments Encounter Date Diagnosis (ICD Code) Assessment Notes Treatment Notes Treatment Clinical Notes Section Notes 06/12/2024 Type 2 diabetes mellitus without complication, without long-term current use of insulin (ICD-10 - E11.9) 06/12/2024 Mixed hyperlipidemia (ICD-10 - E78.2) 06/12/2024 Psoriasis (ICD-10 - L40.9) 06/12/2024 Pain in left shoulder (ICD-10 - M25.512) 06/12/2024 Other chronic pain (ICD-10 - G89.29) Plan Of Treatment Next Appt Details Follow Up: 5M, Reason: Provider Name:Carrillo Jefferson er, 08/13/2025 10:45:00 AM, [address], [address], [place], [place], [id number], Progress Notes * Catarino MONTEOB:0 1960 (65 yo M)Acc No.[id number]:06/12/2024 Progress Notes Patient: Catarino LOZA Provider: Carrillo Bradford M.D. :1960 A ge:64 Y S ex:Male Date:06/12/2024 Address:[facility] [place], [id number] Subjective: * Chief Complaints: * 1 . 4 months. 2. Needs labs, diabetic eye exam, & flu vaccine. * HPI: C ardiology: The patient is here for a check up on Hyperlipidemia and Diabetes. Pt states he is do okay except for some pain in the left shoulder. Pt states it is worse at night and radiates down the left arm. Pt is fasting. Denies : Chest Pain. D enies : Short of Breath. D enies : Dizziness. D enies : Palpitations. * ROS: D ERMATOLOGY: no R dianne. n o H isela. G ASTROENTEROLOGY: no N ausea. n o V omiting. n o D iarrhea.? U ROLOGY: no D ifficulty urinating. n o B lood in urine. * Medical History: C-spine neg, Psoriasis, Dr. Quinones, COVID 19 vaccine, Moderna December 2020. * Surgical History: l eft knee , right knee ( cyst) , gum 1984, right shoulder 12/2012, Plantar surgery lt foot 08/2013. * Hospitalization/Major Diagno stic Procedure: p gurjit ( as a child) X 2 times , inflammation of muscle of the heart 2005. * Family History: F ather: 50 yrs, seizures. M other: alive. 3 brother(s) , 1 sister(s) . 1 son(s) , 1 daughter(s) . . * Social History: C URRENT TOBACCO USE S moking Status: Patient does NOT smoke. C affeine: yes, frequency:tea and pop, QD. Home smoke detector use: yes. Marital Status: . Past smoking status: no, Smoking status: Does not smoke. Alcohol: Yes, Type: , Frequency: ,Years: , Determination:3-4 drinks a week. * Medications: T aking Methotrexate 2.5 MG Tablet 6 tabs orally once a week , Taking Tremfya 100 MG/ML Solution Pen-injector as directed subcutaneously every 8 weeks , Taking NIZORAL CREAM 2 % DIRECTED TO AFFECTED AREAS Q DAY , Taking Glimepiride 2 MG Tablet 1 tab(s) orally once a day , Taking metFORMIN HCl 500 MG Tablet 2 tab(s) Orally Two times a day , Taking traZODone HCl 50 mg Tablet 1 tab(s) Orally Once a day at bedtime , Taking Celecoxib 200 mg Capsule TAKE ONE CAPSULE BY MOUTH EVERY DAY , Taking Jardiance 25 MG Tablet 1 tablet Orally Once a day in the morning , Taking Esomeprazole Magnesium 20 mg Capsule Delayed Release 1 capsule Orally once daily , Taking Rosuvastatin Calcium 5 MG Tablet TAKE 1 TABLET BY MOUTH EVERY DAY AT BEDTIME , Taking DULoxetine HCl 60 MG Capsule Delayed Release Particles TAKE 1 CAPSULE BY MOUTH EVERY DAY , Taking Gabapentin 600 MG Tablet 1 tab(s) orally 4 times a day , Medication List reviewed and reconciled with the patient * Allergies: N .K.D.A. Objective: * Vitals: W t:253.0, Temp:98.1, BP:132/80, HR:72, Nurse:AVELINO, Ht: 72.50, BMI:33.84. * Examination: G eneral Examination: General Appearance: N AD, note weight loss. H EENT:?unremarkable. O ral cavity: n o lesions, mucosa moist and WNL, no erythema. N jonny: ?supple, no lymphadenopathy, no carotid bruits. C hest: n ormal shape and expansion. H eart: R SR. L ungs: c lear to auscultation. A bdomen: soft and nontender, no organomegaly or masses. N eurologic Exam: I ntact, gait normal, Rhomberg neg. S kin:?normal, no rash. Healing wound of the left medial thigh. P eripheral pulses: n ormal . B ack: mild dorsal kyphosis. E xtremities: n o leg edema. ? Assessment: * Assessment: 1. T ype 2 diabetes mellitus without complication, without long-term current use of insulin - E11.9 (Primary) 2 . M ixed hyperlipidemia - E78.2 3 . P soriasis - L40.9 4 . P ain in left shoulder - M25.512 5 . O ther chronic pain - G89.29 Plan: * Treatment: Value Reference Range A /G Ratio 1.9 1.1-2.5 - * A lbumin 4.5 3.5-5.3 - g/dL * A lkaline Phosphatase 98 40-129 - IU/L * A LT (SGPT) 33 <5-55 - IU/L * A ST (SGOT) 30 <5-46 - IU/L * B ilirubin, Total 0.6 <0.2-1.2 - mg/dL * B UN 16 8-23 - mg/dL * C alcium 9.2 8.6-10.4 - mg/dL * C hloride 104 97-108 - mmol/L * C O2 24 22-32 - mmol/L * C reatinine 0.74 0.70-1.30 - mg/dL * G lucose 182 H 65-99 - mg/dL * P otassium 4.3 3.5-5.3 - mmol/L * S odium 142 135-145 - mmol/L * P rotein 6.9 6.0-8.3 - g/dL * e GFR by Creatinine 100 >59 - mL/min/1.73m2 * Nidia Nunez 06/16/2024 4:24 :53 PM >See phone encounter ?LAB: Glycohemoglobin A1c (in house) (Collection Date & Time - 06/12/2024)? 6.6%* Value Reference Range g lycohemoglobin 6.6% 5 - 6.5 % * Mai Allison 06/12/2024 9:31 :07 AM > Provider reviewed results while patient in office. 2.?Mixed hyperlipidemia?LAB: P-Lipid Panel (Collection Date & Time - 06/12/2024 08:20 AM)?trigs 156 * Value Reference Range C holesterol / HDL Ratio 3.18 0.00-4.99 - Ratio * C holesterol 156 <200 - mg/dL * H DL Cholesterol 49 >39 - mg/dL * L DL Cholesterol (Calculation) 76 <130 - mg/d L * L DL/HDL Ratio 1.5 <3.3 - Ratio * N on-HDL Cholesterol 107 <130 - mg/dL * T riglycerides 156 H <150 - mg/dL * Nidia Nunez 06/16/2024 4:24 :53 PM >See phone encounter * Procedure Codes: 3 6416 CAPILLARY BLOOD DRAW, [address]246 GLYCATED HEMOGLOBIN TEST, Modifiers: QW * Follow Up: 5 M * Images: Billing Information: * Visit Code: 36762 Office Visit, Est Pt., Level 4. * Procedure Codes: 96158 CAPILLARY BLOOD DRAW. 43815 GLYCATED HEMOGLOBIN TEST. Modifiers: QW * Electronic signature of Carrillo Bradford MD on 08/02/2025 at 09:15 AM EST Sign off status: Pending * Provider: Carrillo Bradford M.D. Date: 1 Generated for Tenzini harris/Calixto/eTransmitting on: 10/03/2024 09:15 AM EST History and Physical Notes * HPI (History of Present Illness) Category Sub-Category Detail Notes Category Not es Cardiology Short of Breath Chest Pain Palpitations Dizziness Examination Category Sub-Category Detail Notes Category Not es General Examination HEENT: unremarkable Heart: RSR Lungs: clear to auscultatio n Abdomen: soft and nontender, no organomegaly or masses Extremities: no leg edema General Appearance: NAD, note weight los s Skin: normal, no rash. Hea ling wound of the left medial thigh Neurologic Exam: Intact, gait normal, Rhomberg neg Neck: supple, no lymphaden opathy, no carotid bruits Oral cavity: no lesions, mucosa m oist and WNL, no erythema Peripheral pulses: normal Back: mild dorsal kyphosis Chest: normal shape and exp ansion
--- OUTSIDE RECORDS SUMMARY | 2024-11-13 04:45 | XMS_ITS ---
Author Organization [facility] Address [address] [place], [place] [id number] Care Team Providers Care Butcher Supervisor Name Role Phone Carrillo Bradford Primary Care Provider Allergies No Known Allergies Results Component Value Reference Range Notes Glycohemoglobin A1c (in hous e) Reviewed date:11/17/2024 04:31:55 PM Interpretation:7.3% Performing Lab: Notes/Report: 7.3% glycohemoglobin 7.3% 5 - 6.5 % P-Comprehensive Metabolic Pa quintin (CMP) Reviewed date:11/17/2024 04:31:55 PM Interpretation:gluc 178 Performing Lab: Notes/Report: Test performed by [facility] [address] [place] [address] , [address], [place] [address] Curtis Gonzalez MD, Janitor Custodian CLIA: [id number] Sodium 139 135-145 mmol/L Potassium 4.3 3.5-5.3 mmol/L Chloride 105 97-108 mmol/L CO2 22 22-32 mmol/L Glucose 178 65-99 mg/dL BUN 12 8-23 mg/dL Creatinine 0.77 0.70-1.30 mg/dL Calcium 9.3 8.6-10.4 mg/dL eGFR by Creatinine 99 >59 mL/min/1.73m2 Protein 6.8 6.0-8.3 g/dL Albumin 4.4 3.5-5.3 g/dL Alkaline Phosphatase 72 40-129 IU/L ALT (SGPT) 37 <5-55 IU/L AST (SGOT) 38 <5-46 IU/L Bilirubin, Total 0.8 <0.2-1.2 mg/dL A/G Ratio 1.8 1.1-2.5 P-Lipid Panel Reviewed date:11/17/2024 04:31:55 PM Interpretation:trigs 176 Performing Lab: Notes/Report: Test performed by [facility] [address] , [place] [address] Curtis Gonzalez MD, Janitor Custodian CLIA: [id number] Cholesterol 149 <200 mg/dL Triglycerides 176 <150 mg/dL HDL Cholesterol 47 >39 mg/dL Cholesterol / HDL Ratio 3.17 0.00-4.99 Ratio Non-HDL Cholesterol 102 <130 mg/dL LDL Cholesterol (Calculation) 67 <130 mg/dL LDL Cholesterol Levels* Less than 100 mg/dL Optimal 100 to 129 mg/dL Near Optimal/ Above Optimal 130 to 159 mg/dL Borderline High 160 to 189 mg/dL High 190 mg/dL and above Very High * Categories as recommended by the 2004 ATPIII guidelines LDL/HDL Ratio 1.4 <3.3 Ratio LDL Cholesterol Patient History Test Date: 06/12/2024 LDL Results: 76 Units: mg/dL % Change: - Test Date: 11/13/2024 LDL Results: 67 Units: mg/dL % Change: -11% REASON FOR VISIT 5 months, Needs labs, diabetic eye exam, & Prevnar vaccine Medications Medication SIG (Take, Route, Frequency, Duration) Notes Start Date End Date Status NIZORAL CREAM 2 % DIRECTED TO [employer] LICENSE OF [facility] AREAS Q DAY 05/30/2021 Active Tremfya 100 MG/ML as directed subcutan eously every 8 weeks Active Methotrexate 2.5 MG 6 tabs orally once a week Active Jardiance 25 MG 1 tablet Orally Once a day in the morning; Duration: 90 days Active Celecoxib 200 mg TAKE ONE CAPSULE BY MOUTH EVERY DAY; Duration: 90 days Active Glimepiride 2 MG 1 tab(s) orally once a day Active DULoxetine HCl 60 MG TAKE 1 CAPSULE BY M OUTH EVERY DAY; Duration: 30 Active metFORMIN HCl 500 MG TAKE 2 TABLETS BY M OUTH TWICE DAILY; Duration: 90 Active Rosuvastatin Calcium 5 MG TAKE 1 TABLET BY MOUTH EVERY DAY AT BEDTIME; Duration: 30 Active Esomeprazole Magnesium 20 mg 1 capsule Orally once daily; Duration: 90 days Active traZODone HCl 50 mg 1 tab(s) Orally Once a day at bedtime; Duration: 90 days Active Gabapentin 600 MG 1 tab(s) orally 4 ti mes a day; Duration: 30 day(s) 04/08/2024 Active Vital Signs Blood pressure systolic 132 mm Hg 11/14/19 25 Blood pressure diastolic 80 mm Hg 025 Heart Rate 72 /min 11/13/2024 Height 72.50 in 11/13/2024 Weight 262.8 lbs 11/13/2024 BMI 35.15 kg/m2 11/13/2024 Encounters Encounter Location Date Provider Diagnosis [facility] [address] [place] [id number] 11/13/2024 Carrillo Bradford Type 2 diabetes ramesh itus without complication, without long-term current use of insulin E11.9 ; Other chronic pain G89.29 and Mixed hyperlipidemia E78.2 Assessments Encounter Date Diagnosis (ICD Code) Assessment Notes Treatment Notes Treatment Clinical Notes Section Notes 11/13/2024 Type 2 diabetes mellitus without complication, without long-term current use of insulin (ICD-10 - E11.9) 11/13/2024 Other chronic pain (ICD-10 - G89.29) 11/13/2024 Mixed hyperlipidemia (ICD-10 - E78.2) Plan Of Treatment Medication Medication Name Sig Start Date Stop Date Notes Jardiance 25 MG 1 tablet Orally Once a day in the morning; Duration: 90 days Celecoxib 200 mg TAKE ONE CAPSULE BY MOUTH EVERY DAY; Duration: 90 days Glimepiride 2 MG 1 tab(s) orally once a day Next Appt Details Follow Up: 3 Months, Reason: Provider Name:Carrillo Jefferson er, 08/13/2025 10:45:00 AM, [address], [address] , [place], [place], [address], Progress Notes * Catarino MONTEOB:0 1960 (65 yo M)Acc No.[id number]:11/13/2024 Progress Notes Patient: Catarino LOZA Byron Provider: Carrillo Bradford M.D. :1960 A ge:64 Y S ex:Male Date:11/13/2024 Address:[facility] [place], [id number] Subjective: * Chief Complaints: * 1 . 5 months. 2. Needs labs, diabetic eye exam, & Prevnar vaccine. * HPI: C ardiology: The patient is here for a check-up on Hypertension, Hyperlipidemia, and diabetes. Pt states he is doing good and denies any new concerns today. Pt is fasting. Pt [facility]. Denies : Chest Pain. D enies : [...] 08/2013. * Hospitalization/Major Diagno stic Procedure: p neumonia ( as a child) X 2 times [...] tab(s) orally once a day , Taking Celecoxib 200 mg Capsule TAKE ONE CAPSULE BY MOUTH EVERY DAY , Taking Jardiance 25 MG Tablet 1 tablet Orally Once a day in the morning , Taking Gabapentin 600 MG Tablet 1 tab(s) orally 4 times a day , Taking traZODone HCl 50 mg Tablet 1 tab(s) Orally Once a day at bedtime , Taking Esomeprazole Magnesium 20 mg Capsule Delayed Release 1 capsule Orally once daily , Taking Rosuvastatin Calcium 5 MG Tablet TAKE 1 TABLET BY MOUTH EVERY DAY AT BEDTIME , Taking metFORMIN HCl 500 MG Tablet TAKE 2 TABLETS BY MOUTH TWICE DAILY , Taking DULoxetine HCl 60 MG Capsule Delayed Release Particles TAKE 1 CAPSULE BY MOUTH EVERY DAY , Medication List reviewed and reconciled with the patient * Allergies: N .K.D.A. Objective: * Vitals: W t: 262.8, Temp: 98.3, BP: 132/80, HR: 72, Nurse: AVELINO, Ht: 72.50, BMI:35.15. * Examination: G eneral Examination: General Appearance: N AD, note weight gain. H EENT:?unremarkable. O ral cavity: n o lesions, mucosa moist and WNL, no erythema. N jonny: ?supple, no lymphadenopathy, no carotid bruits. C hest: n ormal shape and expansion. H eart: R SR. L ungs: c lear to auscultation. A bdomen: soft and nontender, no organomegaly or masses. N eurologic Exam: I ntact, gait normal. S kin: n ormal, no rash. . P eripheral pulses: n ormal . B ack: mild dorsal kyphosis. E xtremities: n o leg edema. Assessment: * Assessment: 1. T ype 2 diabetes mellitus without complication, without long-term current use of insulin - E11.9 (Primary) 2 . O ther chronic pain - G89.29 3 . M ixed hyperlipidemia - E78.2 Plan: * Treatment: Value Reference Range A /G Ratio 1.8 1.1-2.5 - * A lbumin 4.4 3.5-5.3 - g/dL * A lkaline Phosphatase 72 40-129 - IU/L * A LT (SGPT) 37 <5-55 - IU/L * A ST (SGOT) 38 <5-46 - IU/L * B ilirubin, Total 0.8 <0.2-1.2 - mg/dL * B UN 12 8-23 - mg/dL * C alcium 9.3 8.6-10.4 - mg/dL * C hloride 105 97-108 - mmol/L * C O2 22 22-32 - mmol/L * C reatinine 0.77 0.70-1.30 - mg/dL * G lucose 178 H 65-99 - mg/dL * P otassium 4.3 3.5-5.3 - mmol/L * S odium 139 135-145 - mmol/L * P rotein 6.8 6.0-8.3 - g/dL * e GFR by Creatinine 99 >59 - mL/min/1.73m2 * Yanelis Gupta 11/17/2024 04: 31:44 PM > see phone encounter ?LAB: Glycohemoglobin A1c (in house) (Collection Date & Time - 11/13/2024 10:27 AM)?7.3%* Value Reference Range g lycohemoglobin 7.3% 5 - 6.5 % * Yanelis Gupta 11/17/2024 04: 31:44 PM > see phone encounter 2.?Mixed hyperlipidemia?LAB: P-Lipid Panel (Collection Date & Time - 11/13/2024 09:44 AM)?trigs 176 * Value Reference Range C holesterol / HDL Ratio 3.17 0.00-4.99 - Ratio * C holesterol 149 <200 - mg/dL * H DL Cholesterol 47 >39 - mg/dL * L DL Cholesterol (Calculation) 67 <130 - mg/d L * L DL/HDL Ratio 1.4 <3.3 - Ratio * N on-HDL Cholesterol 102 <130 - mg/dL * T riglycerides 176 H <150 - mg/dL * Yanelis Gupta 11/17/2024 04: 31:44 PM > see phone encounter * Procedure Codes: 8 3036 GLYCATED HEMOGLOBIN TEST, Modifiers: QW , 3075F SYST BP GE 130 - 139MM HG, 3079F DIAST BP 80-89 MM HG, 3051F HG A1C>EQUAL 7.0%<8.0% * Follow Up: 3 Months * Images: Billing Information: * Visit Code: 07848 Office Visit, Est Pt., Level 4. * Procedure Codes: 33203 GLYCATED HEMOGLOBIN TEST. Modifiers: QW 3075F SYST BP GE 130 - 139MM HG. 3079F DIAST BP 80-89 MM HG. 3051F HG A1C>EQUAL 7.0%<8.0%. * Electronic signature of Carrillo Bradford MD on 08/02/2025 at 09:14 AM EST Sign off status: Pending * Provider: Carrillo Bradford M.D. Date: 0 11/13/2024 Generated for Jovan iglesias/Calixto/Gabriel on: 1 10/03/2024 09:14 AM EST History and Physical Notes * HPI (History of Present Illness) Category Sub-Category Detail Notes Category Not es Cardiology Short of Breath Chest Pain Palpitations Dizziness Examination Category Sub-Category Detail Notes Category Not es General Examination HEENT: unremarkable Heart: RSR Lungs: clear to auscultatio n Abdomen: soft and nontender, no organomegaly or masses Extremities: no leg edema General Appearance: NAD, note weight gai n Skin: normal, no rash. Neurologic Exam: Intact, gait normal Neck: supple, no lymphaden opathy, no carotid bruits Oral cavity: no lesions, mucosa m oist and WNL, no erythema Peripheral pulses: normal Back: mild dorsal kyphosis Chest: normal shape and exp ansion
--- OUTSIDE RECORDS SUMMARY | 2025-03-08 09:15 | XMS_ITS ---
Author Organization [facility] Address [address] [place] [id number] Care Team Providers Care Hyperbaric Technician Name Role Phone Carrillo Bradford Primary Care Provider [phone] Allergies No Known Allergies Results Component Value Reference Range Notes Glycohemoglobin A1c (in hous e) Reviewed date:03/09/2025 11:42:20 AM Interpretation: Performing Lab: Notes/Report: glycohemoglobin 7.5% 5 - 6.5 % P-Comprehensive Metabolic Pa quintin (CMP) Reviewed date:03/11/2025 05:48:25 PM Interpretation:gluc 202, a1c 7.5 reviewed in office with patient Performing Lab: Notes/Report: Test performed by [facility] , [address], [place] [address] Curtis Gonzalez MD, Ornamenter Hand CLIA: [id number] Sodium 138 135-145 mmol/L Potassium 4.6 3.5-5.3 mmol/L Chloride 103 97-108 mmol/L CO2 22 20-32 mmol/L Glucose 202 65-99 mg/dL BUN 15 8-23 mg/dL Creatinine 0.75 0.70-1.30 mg/dL Calcium 9.6 8.6-10.4 mg/dL eGFR by Creatinine 100 >59 mL/min/1.73m2 Protein 7.0 6.0-8.3 g/dL Albumin 4.4 3.5-5.3 g/dL Alkaline Phosphatase 86 40-129 IU/L ALT (SGPT) 23 <5-55 IU/L AST (SGOT) 24 <5-46 IU/L Bilirubin, Total 0.4 <0.2-1.2 mg/dL A/G Ratio 1.7 1.1-2.5 REASON FOR VISIT 3 month check, Needs labs with PSA, diabetic eye exam, & Prevnar vaccine Medications Medication SIG (Take, Route, Frequency, Duration) Notes Start Date End Date Status DULoxetine HCl 60 MG TAKE 1 CAPSULE BY M OUTH EVERY DAY; Duration: 30 days Active traZODone HCl 50 MG TAKE 1 TABLET BY ZURI TH DAILY AT BEDTIME; Duration: 90 Active Celecoxib 200 mg TAKE ONE CAPSULE BY MOUTH EVERY DAY; Duration: 90 days Not-Taking Glimepiride 4 MG 1 tablet with breakf ast or the first main meal of the day Orally Once a day; Duration: 90 days 03/08/2025 Active Esomeprazole Magnesium 20 MG TAKE 1 CAPSULE BY MOUTH DAILY; Duration: 90 Active metFORMIN HCl 500 MG TAKE 2 TABLETS BY M OUTH TWICE DAILY; Duration: 90 Active Rosuvastatin Calcium 5 MG TAKE 1 TABLET BY MOUTH EVERY DAY AT BEDTIME; Duration: 30 Active Methotrexate 2.5 MG 6 tabs orally once a week; Duration: 30 days Active Gabapentin 600 MG 1 tab(s) orally 4 ti mes a day; Duration: 30 day(s) 12/08/2024 Active Tremfya 100 MG/ML as directed subcutaneously every 8 weeks Active NIZORAL CREAM 2 % DIRECTED TO AFFEC URI AREAS Q DAY 05/30/2021 Active Dexcom G7 Sensor - as directed 03/08/2025 Active Jardiance 25 MG 1 tablet Orally Once a day in the morning; Duration: 90 days Active Dexcom G7 Polysomnography Tech - as directed 03/08/2025 Active Nabumetone 750 MG as directed Orally t wice a day Active Problems Problem Type SNOMED Code ICD Code Onset Dates Problem Status W/U Status Risk Notes Problem Type 2 diabetes mellitus with other specified complication, 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) Active confirmed Problem Morbid obesity (962902274) Morbid obesity (E66.01) Active confirmed Problem Rheumatoid arthritis (93989477) Rheumatoid arthritis, involving unspecified site, unspecified whether rheumatoid factor present (M06.9) Active confirmed Vital Signs Blood pressure systolic 126 mm Hg 03/08/20 25 Blood pressure diastolic 74 mm Hg 025 Heart Rate 84 /min 03/08/2025 Height 72.50 in 03/08/2025 Weight 259.2 lbs 03/08/2025 BMI 34.67 kg/m2 03/08/2025 Encounters Encounter Location Date Provider Diagnosis [facility]is A [facility] [facility] 36 [facility] [address] [place] [id number] 03/08/2025 Carrillo Bradford Type 2 diabetes mellitus without complication, without long-term current use of insulin E11.9 ; Psoriatic arthritis L40.50 ; Depression with anxiety F41.8 ; Type 2 diabetes mellitus with other specified complication, unspecified whether usp insulin use E11.69 ; Morbid obesity E66.01 and Rheumatoid arthritis, involving unspecified site, unspecified whether rheumatoid factor present M06.9 Assessments Encounter Date Diagnosis (ICD Code) Assessment Notes Treatment Notes Treatment Clinical Notes Section Notes 03/08/2025 Type 2 diabetes mellitus without complication, without long-term current use of insulin (ICD-10 - E11.9) 03/08/2025 Psoriatic arthritis (ICD-10 - L40.50) 03/08/2025 Depression with anxiety (ICD-10 - F41.8) 03/08/2025 Type 2 diabetes mellitus with other specified complication, 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 (ICD-10 - E11.69) 03/08/2025 Morbid obesity (ICD-10 - E66.01) 03/08/2025 Rheumatoid arthritis, involving unspecified site, unspecified whether rheumatoid factor present (ICD-10 - M06.9) Plan Of Treatment Medication Medication Name Sig Start Date Stop Date Notes Glimepiride 2 MG 1 tab(s) orally once a day Glimepiride 4 MG 1 tablet with breakf ast or the first main meal of the day Orally Once a day; Duration: 90 days 03/08/2025 Dexcom G7 Sensor - as directed 03/08/2025 Dexcom G7 Polysomnography Tech - as directed 03/08/2025 Next Appt Details Follow Up: 3 Months, Reason: Provider Name:Carrillo Jefferson , 08/13/2025 10:45:00 AM, [facility], [address], [place], [phone], Progress Notes * Catarino MONTE:0 1960 (65 yo M)Acc No.[id number]:03/08/2025 Progress Notes Patient: Catarino LOZA Provider: Carrillo Bradford M.D. :1960 A ge:64 Y S ex:Male Date:03/08/2025 Address:[facility] [place], [id number] Subjective: * Chief Complaints: * 1 . 3 month check. 2. Needs labs with PSA, diabetic eye exam, & Prevnar vaccine. * HPI: E ndocrinology: The patient is here for a check up on Diabetes. Pt states he is doing good and denies any new concerns. Pt is not fasting. * ROS: D ERMATOLOGY: no R dianne. n o H isela. G ASTROENTEROLOGY: no N ausea. n o V omiting. n o D iarrhea.? U ROLOGY: no D ifficulty urinating. n o B lood in urine. * Medical History: C-spine neg, Psoriasis, Dr. Quinones, COVID 19 vaccine, Moderna Oct/December 2020. * Surgical History: l eft knee [...] drinks a week. * Medications: T aking Nabumetone 750 MG Tablet as directed Orally twice a day , Taking Tremfya 100 MG/ML Solution Pen-injector as directed subcutaneously every 8 weeks , Taking NIZORAL CREAM 2 % DIRECTED TO AFFECTED AREAS Q DAY , Taking Glimepiride 2 MG Tablet 1 tab(s) orally once a day , Taking Jardiance 25 MG Tablet 1 tablet Orally Once a day in the morning , Taking Gabapentin 600 MG Tablet 1 tab(s) orally 4 times a day , Taking Esomeprazole Magnesium 20 MG Capsule Delayed Release TAKE 1 CAPSULE BY MOUTH DAILY , Taking metFORMIN HCl 500 MG Tablet TAKE 2 TABLETS BY MOUTH TWICE DAILY , Taking Rosuvastatin Calcium 5 MG Tablet TAKE 1 TABLET BY MOUTH EVERY DAY AT BEDTIME , Taking Methotrexate 2.5 MG Tablet 6 tabs orally once a week , Taking DULoxetine HCl 60 MG Capsule Delayed Release Particles TAKE 1 CAPSULE BY MOUTH EVERY DAY , Taking traZODone HCl 50 MG Tablet TAKE 1 TABLET BY MOUTH DAILY AT BEDTIME , Not-Taking Celecoxib 200 mg Capsule TAKE ONE CAPSULE BY MOUTH EVERY DAY , Medication List reviewed and reconciled with the patient * Allergies: N .K.D.A. Objective: * Vitals: W t: 259.2, Temp: 98.1, BP: 126/74, HR: 84, Nurse: AVELINO, Ht: 72.50, BMI:34.67. * Examination: G eneral Examination: General Appearance: N AD, note weight. H EENT: u nremarkable. O ral cavity: n o lesions, mucosa moist and WNL, no erythema. N jonny: s upple, no lymphadenopathy, no carotid bruits. C hest: n ormal shape and expansion. H eart: R SR. L ungs: c lear to auscultation. A bdomen: soft and nontender, no organomegaly or masses. N eurologic Exam: I ntact, gait normal. S kin: n ormal, no rash.?. P eripheral pulses: n ormal . B ack: mild dorsal kyphosis. E xtremities: n o leg edema. Assessment: * Assessment: 1. T ype 2 diabetes mellitus without complication, without long-term current use of insulin - E11.9 (Primary) 2 . P soriatic arthritis - L40.50 3 . D epression with anxiety - F41.8 4 . 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 M orbid obesity - E66.01 6 . R heumatoid arthritis, involving unspecified site, unspecified whether rheumatoid factor present - M06.9 Plan: * Treatment: Value Reference Range A /G Ratio 1.7 1.1-2.5 - * A lbumin 4.4 3.5-5.3 - g/dL * A lkaline Phosphatase 86 40-129 - IU/L * A LT (SGPT) 23 <5-55 - IU/L * A ST (SGOT) 24 <5-46 - IU/L * B ilirubin, Total 0.4 <0.2-1.2 - mg/dL * B UN 15 8-23 - mg/dL * C alcium 9.6 8.6-10.4 - mg/dL * C hloride 103 97-108 - mmol/L * C O2 22 20-32 - mmol/L * C reatinine 0.75 0.70-1.30 - mg/dL * G lucose 202 H 65-99 - mg/dL * P otassium 4.6 3.5-5.3 - mmol/L * S odium 138 135-145 - mmol/L * P rotein 7.0 6.0-8.3 - g/dL * e GFR by Creatinine 100 >59 - mL/min/1.73m2 * Teena Sue 03/11/2025 05 :48:12 PM EDT > Patient informed of normal results. ?LAB: Glycohemoglobin A1c (in house) (Collection Date & Time - 03/08/2025)* Value Reference Range g lycohemoglobin 7.5% 5 - 6.5 % * Teena Sue 03/08/2025 02: 33:04 PM EDT > Provider reviewed results while patient in office. * Procedure Codes: 8 3036 GLYCATED HEMOGLOBIN TEST, Modifiers: QW , 3051F HG A1C>EQUAL 7.0%<8.0%, 1036F TOBACCO NON-USER, G8783 BP SCR PRFRM RCMDD DEFIND SCR INTVL, G8752 MOST RECENT SYSTOLIC BP < 140MM HG, G8754 MOST RECENT DIASTOLIC BP < 90MM HG * Follow Up: 3 Months * Images: Billing Information: * Visit Code: 44668 Office Visit, Est Pt., Level 4. * Procedure Codes: 48530 GLYCATED HEMOGLOBIN TEST. Modifiers: QW 3051F HG A1C>EQUAL 7.0%<8.0%. 1036F TOBACCO NON-USER. G8783 BP SCR PRFRM RCMDD DEFIND SCR INTVL. G8752 MOST RECENT SYSTOLIC BP < 140MM HG. G8754 MOST RECENT DIASTOLIC BP < 90MM HG. * Electronic signature of Carrillo Bradford MD on 08/02/2025 at 09:14 AM EST Sign off status: Pending * Provider: Carrillo Bradford M.D. Date: 0 03/08/2025 Generated for Tenzini harris/Calixto/eTransmitting on: 1 10/03/2024 09:14 AM EST History and Physical Notes * Examination Category Sub-Category Detail Notes Category Not es General Examination HEENT: unremarkable Heart: RSR Lungs: clear to auscultatio n Abdomen: soft and nontender, no organomegaly or masses Extremities: no leg edema General Appearance: NAD, note weight Skin: normal, no rash. Neurologic Exam: Intact, gait normal Neck: supple, no lymphaden opathy, no carotid bruits Oral cavity: no lesions, mucosa m oist and WNL, no erythema Peripheral pulses: normal Back: mild dorsal kyphosis Chest: normal shape and exp ansion
--- OUTSIDE RECORDS SUMMARY | 2025-07-16 05:00 | XMS_ITS ---
Author Organization [facility] Address [address] [id number] Care Team Providers Care Patient Registrar Name Role Phone Carrillo Bradford Primary Care Provider Allergies No Known Allergies Results Component Value Reference Range Notes Glycohemoglobin A1c (in hous e) Reviewed date:07/16/2025 01:17:59 PM Interpretation: Performing Lab: Notes/Report: glycohemoglobin 5.8% 5 - 6.5 % P-Comprehensive Metabolic Pa quintin (CMP) Reviewed date:07/21/2025 02:20:34 PM Interpretation:Glu 114, AST 48 Performing Lab: Notes/Report: Test performed by [facility] [address] [place] [address] , [address], [place] [address] Curtis Gonzalez MD, High School Social Studies Tutor CLIA: [id number] Sodium 144 135-145 mmol/L Potassium 4.9 3.5-5.3 mmol/L Chloride 105 97-108 mmol/L CO2 25 20-32 mmol/L Glucose 114 65-99 mg/dL BUN 14 8-23 mg/dL Creatinine 0.84 0.70-1.30 mg/dL Calcium 9.2 8.6-10.4 mg/dL eGFR by Creatinine 96 >59 mL/min/1.73m2 Protein 7.0 6.0-8.3 g/dL Albumin 4.4 3.5-5.3 g/dL Alkaline Phosphatase 79 40-129 IU/L ALT (SGPT) 50 <5-55 IU/L AST (SGOT) 48 <5-46 IU/L Bilirubin, Total 0.8 <0.2-1.2 mg/dL A/G Ratio 1.7 1.1-2.5 REASON FOR VISIT 3 months, Needs labs with PSA, diabetic eye exam, Prevnar, & flu vaccines Medications Medication SIG (Take, Route, Frequency, Duration) Notes Start Date End Date Status Methotrexate 2.5 MG 6 tabs orally once a week; Duration: 30 days Active Dexcom G7 Sensor - as directed 03/08/2025 Not-Taking Dexcom G7 Molder - as directed 03/08/2025 Not-Taking DULoxetine HCl 60 MG 1 capsule Orally On ce a day; Duration: 30 days Active traZODone HCl 50 MG TAKE 1 TABLET BY ZURI TH DAILY AT BEDTIME; Duration: 90 Active Tremfya 100 MG/ML as directed subcutaneously every 8 weeks Active Celecoxib 200 mg TAKE ONE CAPSULE BY MOUTH EVERY DAY; Duration: 90 days Not-Taking NIZORAL CREAM 2 % DIRECTED TO [facility] Q DAY 05/30/2021 Active metFORMIN HCl 500 MG 2 tablets Orally tw ice a day; Duration: 90 days Active Nabumetone 750 MG as directed Orally t wice a day Active Rosuvastatin Calcium 5 MG 1 tablet at bedtime orally once a day; Duration: 90 days Active Esomeprazole Magnesium 20 MG 1 capsule 1/2 to 1 hour before morning meal Orally Once a day; Duration: 90 days Active Glimepiride 4 MG 1 tablet with breakf ast or the first main meal of the day Orally Once a day; Duration: 90 days Active Jardiance 25 MG 1 tablet Orally Once a day in the morning; Duration: 90 days Active Gabapentin 600 MG 1 tab(s) orally 4 ti mes a day; Duration: 30 days 06/18/2025 Active Immunizations Vaccine Route Administration Date Status Comme nts Fluzone High Dose (65yr and older) IM Intramuscular 07/16/2025 Pending Vital Signs Blood pressure systolic 124 mm Hg 07/16/20 25 Blood pressure diastolic 72 mm Hg 025 Heart Rate 72 /min 07/16/2025 Height 72.50 in 07/16/2025 Weight 269.2 lbs 07/16/2025 BMI 36 kg/m2 07/16/2025 Encounters Encounter Location Date Provider Diagnosis [facility] [address] [place] [id number] 07/16/2025 Carrillo Bradford Pain in left shoulde r M25.512 ; Other chronic pain G89.29 ; Tendinopathy of left shoulder M67.912 ; Type 2 diabetes mellitus without complication, without long-term current use of insulin E11.9 and Flu vaccine need Z23 Assessments Encounter Date Diagnosis (ICD Code) Assessment Notes Treatment Notes Treatment Clinical Notes Section Notes 07/16/2025 Pain in left shoulder (ICD-10 - M25.512) 07/16/2025 Other chronic pain (ICD-10 - G89.29) 07/16/2025 Tendinopathy of left shoulder (ICD-10 - M67.912) 07/16/2025 Type 2 diabetes mellitus without complication, without long-term current use of insulin (ICD-10 - E11.9) 07/16/2025 Flu vaccine need (ICD-10 - Z23) Plan Of Treatment Pending Test Test Name Order Date MRI : Shoulder, left, without contrast 1 09/15/2024 Next Appt Details Follow Up: 1 Week, Reason: Provider Name:Carrillo Jefferson er, 08/13/2025 10:45:00 AM, [address], [address], [place], [id number], Progress Notes * Catarino MONTEOB:0 1960 (65 yo M)Acc No.[id number]:07/16/2025 Progress Notes Patient: Catarino LOZA Provider: Carrillo Bradford M.D. :1960 A ge:65 Y S ex:Male Date:07/16/2025 Address:[address] [place] [address] Al[place] [employer] [place], [id number] Subjective: * Chief Complaints: * 1 . 3 months. 2. Needs labs with PSA, diabetic eye exam, Prevnar, & flu vaccines. * HPI: S houlder/Upper arm: 65 year old male presents with c/o shoulder pain T he pt states the left shoulder pain has gotten worse since his last visit. Pt states the pain is keeping him up at night. Had 2017 MRI that indicated some tendonopathy and bone infarction. C ardiology: The pt is here for a check up on Hypertension, Hyperlipidemia and Diabetes. The pt does not check his BP nor his glucose at home. Pt states he is fasting. Denies : Chest Pain. D enies : Short of Breath. D enies : Dizziness. D enies : Palpitations. * ROS: C ONSTITUTIONAL: Positive for A nother physician seen since last visit? No, Change in medication since last visit? Yes, Are you taking antibiotics? No, Are you taking steroids? No. D ERMATOLOGY: no R dianne. n o [...] TO AFFECTED AREAS Q DAY , Taking Methotrexate 2.5 MG Tablet 6 tabs orally once a week , Taking traZODone HCl 50 MG Tablet TAKE 1 TABLET BY MOUTH DAILY AT BEDTIME , Taking DULoxetine HCl 60 MG Capsule Delayed Release Particles 1 capsule Orally Once a day , Taking Jardiance 25 MG Tablet 1 tablet Orally Once a day in the morning , Taking Glimepiride 4 MG Tablet 1 tablet with breakfast or the first main meal of the day Orally Once a day , Taking Gabapentin 600 MG Tablet 1 tab(s) orally 4 times a day , Taking Esomeprazole Magnesium 20 MG Capsule Delayed Release 1 capsule 1/2 to 1 hour before morning meal Orally Once a day , Taking Rosuvastatin Calcium 5 MG Tablet 1 tablet at bedtime orally once a day , Taking metFORMIN HCl 500 MG Tablet 2 tablets Orally twice a day , Not-Taking Dexcom G7 Molder - Device as directed , Not-Taking Dexcom G7 Sensor - Miscellaneous as directed , Not-Taking Celecoxib 200 mg Capsule TAKE ONE CAPSULE BY MOUTH EVERY DAY , Medication List reviewed and reconciled with the patient * Allergies: N .K.D.A. Objective: * Vitals: W t: 269.2, Temp: 98.1, BP: 124/72, HR: 72, Nurse: AVELINO, Ht: 72.50, BMI:36. * Examination: G eneral Examination: General Appearance: [...] Exam: I ntact, gait normal. S kin: p soriasis improved. P eripheral pulses: n ormal . B ack: mild dorsal kyphosis. E xtremities: no leg edema, some left shoulder tenderness, seems more anterior. 2017 MRI reviewed..? Assessment: * Assessment: 1. P ain in left shoulder - M25.512 (Primary) 2 . O ther chronic pain - G89.29 3 . T endinopathy of left shoulder - M67.912 4 . T ype 2 diabetes mellitus without complication, without long-term current use of insulin - E11.9 5 . F marline vaccine need - Z23 Plan: * Treatment: 2.?Type 2 diabetes mellitus without complication, without long-term current use of insulin?LAB: P-Comprehensive Metabolic Panel (CMP) (Collection Date & Time - 07/16/2025 12:18 PM)?Glu 114, AST 48* Value Reference Range A /G Ratio 1.7 1.1-2.5 - * A lbumin 4.4 3.5-5.3 - g/dL * A lkaline Phosphatase 79 40-129 - IU/L * A LT (SGPT) 50 <5-55 - IU/L * A ST (SGOT) 48 H <5-46 - IU/L * B ilirubin, Total 0.8 <0.2-1.2 - mg/dL * B UN 14 8-23 - mg/dL * C alcium 9.2 8.6-10.4 - mg/dL * C hloride 105 97-108 - mmol/L * C O2 25 20-32 - mmol/L * C reatinine 0.84 0.70-1.30 - mg/dL * G lucose 114 H 65-99 - mg/dL * P otassium 4.9 3.5-5.3 - mmol/L * S odium 144 135-145 - mmol/L * P rotein 7.0 6.0-8.3 - g/dL * e GFR by Creatinine 96 >59 - mL/min/1.73m2 * Yanelis Gupta 07/21/2025 02 :20:27 PM EST > See phone encounter ?LAB: Glycohemoglobin A1c (in house) (Collection Date & Time - 07/16/2025)* Value Reference Range g lycohemoglobin 5.8% 5 - 6.5 % * Teena Sue 07/16/2025 1 2:30:53 PM EST > Provider reviewed results while patient in office. * Immunizations: Fluzone High Dose (65yr and older) : 0.5 mL (Route: Intramuscular) on Right Deltoid (Pending) (Flu vaccine need) * Procedure Codes: 3 6415 VENIPUNCT, ROUTINE*, 11877 GLYCATED HEMOGLOBIN TEST, Modifiers: QW , 3044F HG A1C LEVEL LT 7.0% * Follow Up: 1 Week * Images: Billing Information: * Visit Code: 55506 Office Visit, Est Pt., Level 4. * Procedure Codes: 33705 VENIPUNCT, ROUTINE*. 24379 GLYCATED HEMOGLOBIN TEST. Modifiers: QW 3044F HG A1C LEVEL LT 7.0%. * Electronic signature of Carrillo Bradford MD on 08/02/2025 at 09:15 AM EST Sign off status: Pending * Provider: Carrillo Bradford M.D. Date: 09/15/2024 Generated for Printi ng/Faxing/eTransmitting on: 10/03/2024 09:15 AM EST History and Physical Notes * HPI (History of Present Illness) Category Sub-Category Detail Notes Category Not es Cardiology Short of Breath Chest Pain Palpitations Dizziness Shoulder/Upper arm shoulder pain The pt states the left shoulder pain has gotten worse since his last visit. Pt states the pain is keeping him up at night. 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 2017 MRI reviewed. General Appearance: NAD, note weight Skin: psoriasis improved Neurologic Exam: Intact, gait normal Neck: supple, no lymphaden opathy, no carotid bruits Oral cavity: no lesions, mucosa m oist and WNL, no erythema Peripheral pulses: normal Back: mild dorsal kyphosis Chest: normal shape and exp ansion
--- NOTE | 2025-08-02 09:11 | MR_ITS ---
FINAL REPORT TECHNIQUE: Multiplanar and multisequence imaging of the shoulder was obtained without contrast. CLINICAL HISTORY: TENDINOPATHY OF LT SHOULDER constant pain / sore all the time effects sleep no know injury x 1 year COMPARISON: None FINDINGS: Bones and joints: There is a heterogeneous predominantly T1 hypointense, T2 hyperintense lesion in the proximal left humeral shaft. Favor enchondroma. No bone marrow edema is identified. Acromioclavicular joint degenerative disease is present and there is osteophytosis which narrows the supraspinatus outlet. Rotator cuff: Rotator cuff tendinopathy is present. There is a full-thickness tear of the anteriormost supraspinatus tendon, which extends posteriorly as a partial articular sided tear. The infraspinatus tendon is intact. The subscapularis tendon is intact but there is prominent tendinopathy present. There is no fatty atrophy of the rotator cuff muscles. Labrum: The biceps labral complex is intact. No labral tear is identified. The inferior glenohumeral ligament is intact. The biceps tendon is intact. Bicipital tenosynovitis is present without a discrete tear. Other: There is no significant joint effusion. Fluid is present in the subdeltoid and subcoracoid bursas. IMPRESSION: 1. Full-thickness anterior supraspinatus tear which extends posteriorly as a partial articular sided tear. 2. Rotator cuff tendinopathy, most pronounced involving the subscapularis tendon. 3. Heterogeneous mass in the proximal left humeral shaft, favor enchondroma. Reviewed, Interpreted and Dictated by Gloria Flores MD Transcribed by Geeta Mohamud Authenticated and [facility]
--- OUTSIDE RECORDS SUMMARY | 2025-08-02 09:16 | XMS_ITS | Clinical Summary ---
Author Organization [facility] Address [address] [place] [address] Care Team Providers Care Pullman Conductor Name Role Phone Janine Miranda MD Primary Care Provider [phone] Allergies No known active allergies Medications celecoxib [...] Date Last Done Comments [facility]-Depression Screening 1960 [facility]-/Child/Adol SDOH Screenings 1960 [facility]- SDOH Screenings 1977 [facility]-Adult SDOH Screenings 1977 [facility]-DTaP,Tdap,and Td Vaccine s (1 - Tdap) 1978 CT Colonography 2004 Colonoscopy 2004 FIT-DNA 2004 FIT 2004 FOBT 2004 Sigmoidoscopy 2004 [facility]-Colorectal Cancer Screening 2004 [facility]-Pneumococcal Vaccine: 50 + Years (1 of 1 - PCV) 2009 [facility]-Zoster Vaccines (1 of 2) 2009 [id number] Vaccine (3 - season) 2025 12/23/2020, 11/15/2020 [facility]-Influenza Vaccine (#1) 05/03/202505/30, 06/27/2020, [...] [place] [address] [place] [address] ANTH Care Teams Pullman Conductor Relationship Specialty Start Date End Date Janine Miranda MD PCP - General 07/25/21
--- OUTSIDE RECORDS SUMMARY | 2025-08-02 09:16 | XMS_ITS | Patient Health Record ---
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 Name Role Phone Carrillo Bradford Primary Care Provider [phone] Mati Flores Unavailable [phone] Allergies No Known Allergies Results Component Value Reference Range Notes Glycohemoglobin A1c (in hous e) Reviewed date:11/17/2024 04:31:55 PM Interpretation:7.3% Performing Lab: Notes/Report: 7.3% glycohemoglobin 7.3% 5 - 6.5 % P-Comprehensive Metabolic Pa quintin (CMP) Reviewed date:11/17/2024 04:31:55 PM Interpretation:gluc 178 Performing Lab: Notes/Report: Test performed by [facility] [address] [place] [address] , [address], [place] [address] Curtis Gonzalez MD, Instructional Material Director CLIA: [id number] Sodium 139 135-145 mmol/L Potassium 4.3 3.5-5.3 [...] 176 Performing Lab: Notes/Report: Test performed by [facility], [address] , [place] [address] Curtis Gonzalez MD, Instructional Material Director CLIA: [id number] Cholesterol 149 <200 mg/dL Triglycerides 176 <150 [...] patient Performing Lab: Notes/Report: Test performed by [facility] [address] [place] [address] , [address], [place] [address] Curtis Gonzalez MD, Instructional Material Director CLIA: [id number] Sodium 138 135-145 mmol/L Potassium 4.6 3.5-5.3 [...] 1.1-2.5 Glycohemoglobin A1c (in hous e) Reviewed date:07/16/2025 01:17:59 PM Interpretation: Performing Lab: Notes/Report: glycohemoglobin 5.8% 5 - 6.5 % P-Comprehensive Metabolic Pa quintin (CMP) Reviewed date:07/21/2025 02:20:34 PM Interpretation:Glu 114, AST 48 Performing Lab: Notes/Report: Test performed by [facility], [employer] [address] [facility] , [address], [place] [address] Curtis Gonzalez MD, Instructional Material Director CLIA: [id number] Sodium 144 135-145 mmol/L Potassium 4.9 3.5-5.3 [...] 0.8 <0.2-1.2 mg/dL A/G Ratio 1.7 1.1-2.5 Medications Medication SIG (Take, Route, Frequency, Duration) Notes Start Date End Date Status Tremfya 100 MG/ML as directed subcutaneously every 8 weeks Active Rosuvastatin Calcium 5 MG 1 tablet at bedtime orally once a day; Duration: 90 days Active Esomeprazole Magnesium 20 MG 1 capsule 1/2 to 1 hour before morning meal Orally Once a day; Duration: 90 days Active Methotrexate 2.5 MG 6 tabs orally once a week; Duration: 30 days Active Celecoxib 200 mg TAKE ONE CAPSULE BY MOUTH EVERY DAY; Duration: 90 days Not-Taking NIZORAL CREAM 2 % DIRECTED TO [facility] DAY 05/30/2021 Active metFORMIN HCl 500 MG 2 tablets Orally tw ice a day; Duration: 90 days Active Dexcom G7 Sensor - as directed 03/08/2025 Not-Taking 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 - as directed 03/08/2025 Not-Taking DULoxetine HCl 60 MG 1 capsule Orally On ce a day; Duration: 30 days Active traZODone HCl 50 MG TAKE 1 TABLET BY ZURI TH DAILY AT BEDTIME; Duration: 90 Active Glimepiride 4 MG 1 tablet with breakf ast or the first main meal of the day Orally Once a day; Duration: 90 days Active Jardiance 25 MG 1 tablet Orally Once a day in the morning; Duration: 90 days Active Nabumetone 750 MG as directed Orally t wice a day Active Gabapentin 600 MG 1 tab(s) orally 4 ti mes a day; Duration: 30 days 06/18/2025 Active Immunizations Vaccine Route Administration Date Status Comme nts xFluzone (6mos and older)-trivalent IM Intramuscular 08/13/2011 Administered xFluzone (6mos and older)-trivalent IM Intramuscular 09/15/2013 Administered Tetanus Tdap-Adacel (over 7yrs) Unknown 11/17/2014 Pending Tetanus Tdap-Adacel (over 7yrs) Unknown 12/24/2022 Administered Shingrix IM Intramuscular 08/01/2021 Administered PNEUMOVAX 23 VACCINE IM Intramuscular 10/23/2021 Administered Pt tolerated we ll Fluzone Quad (6months&older) IM Intramuscular 08/16/2016 Administered Fluzone Quad (6months&older) IM Intramuscular 06/22/2019 Administered Fluzone Quad (6months&older) IM Intramuscular 06/27/2020 Administered Fluzone Quad (6months&older) IM Intramuscular 10/01/2022 Administered Fluzone High Dose (65yr and older) IM Intramuscular 07/16/2025 Pending Flublok IM Intramuscular 05/30/2021 Administered COVID 19 Moderna Unknown 11/11/2020 Administered COVID 19 Moderna Unknown 12/23/2020 Administered COVID 19 Moderna Unknown 08/30/2021 Administered Problems Problem Type SNOMED Code ICD [...] mellitus with other specified complication, unspecified whether mcfp insulin use (E11.69) Active confirmed Problem Information temporarily unavailable Rheumatoid arthritis, involving unspecified site, unspecified whether rheumatoid factor present (M06.9) Active confirmed Vital Signs Heart Rate 72 /min 07/16/2025 Blood pressure diastolic 72 mm Hg 07/16/2025 Height 72.50 in 07/16/2025 Blood pressure systolic 124 mm Hg 07/16/2025 Weight 269.2 lbs 07/16/2025 BMI 36 kg/m2 07/16/2025 Encounters Encounter Location Date Provider Diagnosis [facility] [address] [place] [id number] 11/13/2024 Carrillo Bradford Type 2 diabetes ramesh itus without complication, without long-term current use of insulin E11.9 ; Other chronic pain G89.29 and Mixed hyperlipidemia E78.2 [facility] [address] [place] [id number] 03/08/2025 Carrillo Bradford Type 2 diabetes ramesh itus without complication, without long-term current use of insulin E11.9 ; Psoriatic arthritis L40.50 ; Depression with anxiety F41.8 ; Type 2 diabetes mellitus with other specified complication, unspecified whether joint terminal attack controller insulin use E11.69 ; Morbid obesity E66.01 and Rheumatoid arthritis, involving unspecified site, unspecified whether rheumatoid factor present M06.9 [facility] [address] [place], [place] [id number] 07/16/2025 Carrillo Bradford Pain in left shoulde r M25.512 ; Other chronic pain G89.29 ; Tendinopathy of left shoulder M67.912 ; Type 2 diabetes mellitus without complication, without long-term current use of insulin E11.9 and Flu vaccine need Z23 [facility] [address] [place], [place] [id number] 08/19/2024 Carrillo Bradford [facility] [address] [place], [place] [id number] 11/17/2024 Carrillo Bradford [facility] [address] [place], [place] [id number] 12/07/2024 Carrillo Bradford [facility] [address] [place], [place] [id number] 01/13/2025 Carrillo Bradford [facility] [address] [place], [place] [id number] 03/09/2025 Carrillo Bradford [facility] [address] [place], [place] [id number] 03/16/2025 Carrillo Bradford [facility] [address] [place] [id number] 06/15/2025 Carrillo Bradford [facility] [address] [place], [place] [id number] 06/18/2025 Mati Ashley [facility] [address] [place], [place] [id number] 07/21/2025 Carrillo Bradford Assessments Encounter Date Diagnosis (ICD Code) Assessment Notes Treatment Notes Treatment Clinical Notes Section Notes 11/13/2024 Other chronic pain (ICD-10 - G89.29) 11/13/2024 Type 2 diabetes mellitus without complication, without long-term current use of insulin (ICD-10 - E11.9) 03/08/2025 Psoriatic arthritis (ICD-10 - L40.50) 03/08/2025 Type 2 diabetes mellitus without complication, without long-term current use of insulin (ICD-10 - E11.9) 07/16/2025 Pain in left shoulder (ICD-10 - M25.512) 07/16/2025 Other chronic pain (ICD-10 - G89.29) 07/16/2025 Tendinopathy of left shoulder (ICD-10 - M67.912) 03/08/2025 Depression with anxiety (ICD-10 - F41.8) 11/13/2024 Mixed hyperlipidemia (ICD-10 - E78.2) 03/08/2025 Type 2 diabetes mellitus with other specified complication, unspecified whether mcfp insulin use (ICD-10 - E11.69) 07/16/2025 Type 2 diabetes mellitus without complication, without long-term current use of insulin (ICD-10 - E11.9) 07/16/2025 Flu vaccine need (ICD-10 - Z23) 03/08/2025 Morbid obesity (ICD-10 - E66.01) 03/08/2025 Rheumatoid arthritis, involving unspecified site, unspecified whether rheumatoid factor present (ICD-10 - M06.9) Plan Of Treatment Pending Test Test Name Order Date MRI : Shoulder, left, without contrast 1 09/15/2024 Next Appt Details Provider Name:Carrillo Jefferson , 08/13/2025 10:45:00 AM, [address], [address], [place], [place], [id number], Insurance Providers Payer Name Payer Address Payer Phone Subscriber Number Group Number Insured Name Patient Relationship to Insured Coverage Start Date Coverage End Date [employer] [address] [place] [address] [id number] Catarino Monte Self - patient is the [...]
--- OUTSIDE RECORDS SUMMARY | 2025-08-02 09:16 | XMS_ITS | Data Portability ---
Author Organization [facility] Al[facility] Machado c, [facility] [place] [facility] Address [address] [place] [address] Care Team Providers Care Conductor Yard Name Role Phone ALISSA SIMS Referring Provider MEET PERALES Primary Care Provider ANA PAUL Cell Attendant MARY CAMERON Photoengraver Apprentice Assessment Encounter Date Assessment Date Assessment LastModified [...] Lab CBC w/ auto diff 2024 025 [facility], [address] [place] [address], [id number], 01/22/2025 14:55:56 hepatic function panel, serum 2024 025 [facility], [address] [place] [address], [id number], 01/22/2025 15:29:21 CBC w/ auto diff 2023 024 [facility], [address] [place] [address], [id number], 07/24/2024 10:27:11 ESR (erythroc yte sedimenta tion rate), blood 2023 024 [facility], [address] [place] [address], [id number], 07/24/2024 11:51:28 hepatic function panel, serum 2023 024 [facility], [address] [place] [address], [id number], 07/24/2024 10:45:12 CBC w/ auto diff [address] [facility], [address] [place] [address], [id number], 04/23/2024 08:06:26 hepatic function panel, serum [address] [facility], [address] [place] [address], [id number], 04/23/2024 08:06:26 CBC w/ auto diff 2023 024 [facility], [address] [place] [address], [id number], 10/04/2023 09:56:17 ESR (erythroc yte sedimenta tion rate), blood 2023 024 [facility], [address] [place] [address], [id number], 10/04/2023 12:10:27 ALT (alanine aminotran sferase), serum or plasma 2023 024 [facility], [address] [place] [address], [id number], 10/04/2023 09:37:54 AST/SGOT (aspartat e aminotran sferase), serum or plasma 2023 024 [facility], [address] [place] [address], [id number], 10/04/2023 09:37:51 Mycobacte rium tuberculo sis stimulate d gamma interfero n, qual, blood 2023 024 [facility], [address] [place] [address], [id number], 10/07/2023 16:56:21 CBC w/ auto diff 2022 023 [facility], [address] [place] [address], [id number], 03/29/2023 10:59:08 ALT (alanine aminotran sferase), serum or plasma 2022 023 [facility], [address] [place] [address], [id number], 03/29/2023 11:12:55 AST/SGOT (aspartat e aminotran sferase), serum or plasma 2022 023 [facility], [address] [place] [address], [id number], 03/29/2023 11:12:58 ESR (erythroc yte sedimenta tion rate), blood 2022 023 [facility], [address] [place] [address], [id number], 03/29/2023 12:05:48 Referral None recorded. Procedures None recorded. Surgeries None recorded. Imaging None recorded. Medication Orders nabumeton e 750 mg tablet [address] [facility] #[id number], [address], [id number], 01/22/2025 13:25:39 methotrex ate sodium 2.5 mg tablet [address] [facility] #[id number], [address], [id number], 07/24/2024 09:34:28 folic acid 1 mg tablet [address] [facility] #10222, [address], [id number], 07/24/2024 09:34:34 folic acid 1 mg tablet 2022 023 [facility], [address] [place] [address], [id number], 06/25/2023 12:45:04 methotrex ate sodium 2.5 mg tablet 2022 023 [facility], [address] [place] [address] [address] [place], [id number], 06/25/2023 12:45:11 Patient TargetsNo targets recorded. Patient Instructions Encounter Date Encounter Id Patient Instructions Last Modified By Organization Details Last Modified Time 04/16/2024 [id number] Dupuytren's Disease: Care Instructions Not available 04/17/2024 08:05:27 Reason for Referral None Reported. Results Created Date Observation Date Name Description Value Unit Range Abnormal Flag Note LastModifiedBy Organization Detail LastModifiedTime 03/29/2003/29/2023 COMPL ETE BLOOD COUNT white blood cells 6.2 10*3/ uL 3.8-10 .8 normal Not Available [facility] [address] [place] [address], [id number], 03/29/2023 10:59:08 07/28/20 23 03/29/2023 COMPL ETE BLOOD COUNT red blood cells 5.18 10*6/ uL 4.20-5 .80 normal Not Available [facility] [address] [place] [address], [id number], 03/29/2023 10:59:08 03/29/20 23 03/29/2023 COMPL ETE BLOOD COUNT hemoglobin 15.4 g/dL 14.0-1 8.0 normal Not Available [facility] [address] [place] [address], [id number], 03/29/2023 10:59:08 03/29/20 23 03/29/2023 COMPL ETE BLOOD COUNT hematocrit 46.0 % 40.0-5 2.0 normal Not Available [facility] [address] [place] [address], [address], 03/29/2023 10:59:08 03/29/20 23 03/29/2023 COMPL ETE BLOOD COUNT MCV 89 fL 80-100 normal Not Available [facility] [address] [place] [address], [address], 03/29/2023 10:59:08 03/29/20 23 03/29/2023 COMPL ETE BLOOD COUNT MCH 30 pg 26-35 normal Not Available [facility] [address] [place] [address], [id number], 03/29/2023 10:59:08 03/29/20 23 03/29/2023 COMPL ETE BLOOD COUNT MCHC 33 g/dL 32-36 normal Not Available [facility] [address] [place] [address], [address], 03/29/2023 10:59:08 03/29/20 23 03/29/2023 COMPL ETE BLOOD COUNT RDW 16.3 % 11.0-1 5.0 high Not Available [facility] [address] [place] [address], [address], 03/29/2023 10:59:08 03/29/20 23 03/29/2023 COMPL ETE BLOOD COUNT MPV 8.5 fL 6.2-10 .5 normal Not Available [facility] [address] [place] [address], [id number], 03/29/2023 10:59:08 03/29/20 23 03/29/2023 COMPL ETE BLOOD COUNT platelet count 169 10*3/ uL 130-40 0 normal Not Available [facility] [address] [place] [address], [address], 03/29/2023 10:59:08 03/29/20 23 03/29/2023 COMPL ETE BLOOD COUNT neutrophil,a bsolute 4.3 10*3/ uL 1.6-8. 4 normal Not Available [facility] [address] [place] [address], [address], 03/29/2023 10:59:08 03/29/20 23 03/29/2023 COMPL ETE BLOOD COUNT lymphocyte,a bsolute 1.3 10*3/ uL 0.4-5. 1 normal Not Available [facility] [address] [place] [address], [address], 03/29/2023 10:59:08 03/29/20 23 03/29/2023 COMPL ETE BLOOD COUNT monocyte,abs olute 0.4 10*3/ uL 0.0-1. 2 normal Not Available [facility] [address] [place] [address], [address], 03/29/2023 10:59:08 03/29/20 23 03/29/2023 COMPL ETE BLOOD COUNT eosinophil,a bsolute 0.1 10*3/ uL 0.0-0. 8 normal Not Available [facility] [address] [place] [address], [address], 03/29/2023 10:59:08 03/29/20 23 03/29/2023 COMPL ETE BLOOD COUNT basophil,abs olute 0.0 10*3/ uL 0.0-0. 3 normal Not Available [facility] [address] [place] [address], [address], 03/29/2023 10:59:08 03/29/20 23 03/29/2023 COMPL ETE BLOOD COUNT % neutrophils 69.3 % 42.0-7 8.0 normal Not Available [facility] [address] [place] [address], [address], 03/29/2023 10:59:08 03/29/20 23 03/29/2023 COMPL ETE BLOOD COUNT % lymphocytes 21.2 % 11.0-4 7.0 normal Not Available [facility] [address] [place] [address], [address], 03/29/2023 10:59:08 03/29/20 23 03/29/2023 COMPL ETE BLOOD COUNT % monocytes 6.6 % 0.0-11 .0 normal Not Available [facility] [address] [place] [address], [address], 03/29/2023 10:59:08 03/29/20 23 03/29/2023 COMPL ETE BLOOD COUNT % eosinophils 2.2 % 0.0-7. 0 normal Not Available [facility] [address] [place] [address], [address], 03/29/2023 10:59:08 03/29/20 23 03/29/2023 COMPL ETE BLOOD COUNT % basophils 0.7 % 0.0-3. 0 normal Not Available [facility] [address] [place] [address], [address], 03/29/2023 10:59:08 03/29/20 23 03/29/2023 COMPL ETE BLOOD COUNT nucleated red cells 0.1 % 0.0-0. 9 normal Not Available [facility] [address] [place] [address], [address], 03/29/2023 10:59:08 03/29/20 23 03/29/2023 COMPL ETE BLOOD COUNT nucleated RBCs, absolute 0.01 10*3/ uL not estab. normal Not Available [facility] [address] [place] [address], [address], 03/29/2023 10:59:08 03/29/20 23 03/29/2023 ALT ALT 29 U/L 0-41 normal Not Available [facility] [address] [place] [address], [address], 03/29/2023 11:12:55 03/29/20 23 03/29/2023 AST AST 29 U/L 0-40 normal Not Available [facility] [address] [place] [address], [address], 03/29/2023 11:12:58 03/29/20 23 03/29/2023 ESR, AUTOM ATED ESR, automated 8 mm 0-19 normal Not Available [facility] [address] [place] [address], [address], 03/29/2023 12:05:48 10/04/19 24 10/04/2023 AST AST 24 U/L 0-40 normal Not Available [facility] [address] [place] [address], [address], 10/04/2023 09:37:51 10/04/19 24 10/04/2023 ALT ALT 24 U/L 0-41 normal Not Available [facility] [address] [place] [address], [address], 10/04/2023 09:37:54 10/04/19 24 10/04/2023 COMPL ETE BLOOD COUNT white blood cells 6.1 10*3/ uL 3.8-10 .8 normal Not Available [facility] [address] [place] [address], [address], 10/04/2023 09:56:17 10/04/19 24 10/04/2023 COMPL ETE BLOOD COUNT red blood cells 5.18 10*6/ uL 4.20-5 .80 normal Not Available [facility] [address] [place] [address], [address], 10/04/2023 09:56:17 10/04/19 24 10/04/2023 COMPL ETE BLOOD COUNT hemoglobin 15.8 g/dL 14.0-1 8.0 normal Not Available [facility] [address] [place] [address], [address], 10/04/2023 09:56:17 10/04/19 24 10/04/2023 COMPL ETE BLOOD COUNT hematocrit 46.3 % 40.0-5 2.0 normal Not Available [facility] [address] [place] [address], [address], 10/04/2023 09:56:17 10/04/19 24 10/04/2023 COMPL ETE BLOOD COUNT MCV 89 fL 80-100 normal Not Available [facility] [address] [place] [address], [address], 10/04/2023 09:56:17 10/04/19 24 10/04/2023 COMPL ETE BLOOD COUNT MCH 31 pg 26-35 normal Not Available [facility] [address] [place] [address], [address], 10/04/2023 09:56:17 10/04/19 24 10/04/2023 COMPL ETE BLOOD COUNT MCHC 34 g/dL 32-36 normal Not Available [facility] [address] [place] [address], [address], 10/04/2023 09:56:17 10/04/19 24 10/04/2023 COMPL ETE BLOOD COUNT RDW 15.4 % 11.0-1 5.0 high Not Available [facility] [address] [place] [address], [address], 10/04/2023 09:56:17 10/04/19 24 10/04/2023 COMPL ETE BLOOD COUNT MPV 8.4 fL 6.2-10 .5 normal Not Available [facility] [address] [place] [address], [address], 10/04/2023 09:56:17 10/04/19 24 10/04/2023 COMPL ETE BLOOD COUNT platelet count 172 10*3/ uL 150-40 0 normal Not Available [facility] [address] [place] [address], [address], 10/04/2023 09:56:17 10/04/19 24 10/04/2023 COMPL ETE BLOOD COUNT neutrophil,a bsolute 4.3 10*3/ uL 1.6-8. 4 normal Not Available [facility] [address] [place] [address], [address], 10/04/2023 09:56:17 10/04/19 24 10/04/2023 COMPL ETE BLOOD COUNT lymphocyte,a bsolute 1.2 10*3/ uL 0.4-5. 1 normal Not Available [facility] [address] [place] [address], [address], 10/04/2023 09:56:17 10/04/19 24 10/04/2023 COMPL ETE BLOOD COUNT monocyte,abs olute 0.4 10*3/ uL 0.0-1. 2 normal Not Available [facility] [address] [place] [address], [address], 10/04/2023 09:56:17 10/04/19 24 10/04/2023 COMPL ETE BLOOD COUNT eosinophil,a bsolute 0.1 10*3/ uL 0.0-0. 8 normal Not Available [facility] [address] [place] [address], [address], 10/04/2023 09:56:17 10/04/19 24 10/04/2023 COMPL ETE BLOOD COUNT basophil,abs olute 0.0 10*3/ uL 0.0-0. 3 normal Not Available [facility] [address] [place] [address], [address], 10/04/2023 09:56:17 10/04/19 24 10/04/2023 COMPL ETE BLOOD COUNT % neutrophils 71.2 % 42.0-7 8.0 normal Not Available [facility] [address] [place] [address], [address], 10/04/2023 09:56:17 10/04/19 24 10/04/2023 COMPL ETE BLOOD COUNT % lymphocytes 19.8 % 11.0-4 7.0 normal Not Available [facility] [address] [place] [address], [address], 10/04/2023 09:56:17 10/04/19 24 10/04/2023 COMPL ETE BLOOD COUNT % monocytes 6.0 % 0.0-11 .0 normal Not Available [facility] [address] [place] [address], [address], 10/04/2023 09:56:17 10/04/19 24 10/04/2023 COMPL ETE BLOOD COUNT % eosinophils 2.2 % 0.0-7. 0 normal Not Available [facility] [address] [place] [address], [address], 10/04/2023 09:56:17 10/04/19 24 10/04/2023 COMPL ETE BLOOD COUNT % basophils 0.8 % 0.0-3. 0 normal Not Available [facility] [address] [place] [address], [address], 10/04/2023 09:56:17 10/04/19 24 10/04/2023 COMPL ETE BLOOD COUNT nucleated red cells 0.0 % 0.0-0. 9 normal Not Available [facility] [address] [place] [address], [address], 10/04/2023 09:56:17 10/04/19 24 10/04/2023 COMPL ETE BLOOD COUNT nucleated RBCs, absolute 0.00 10*3/ uL not estab. normal Not Available [facility] [address] [place] [address], [address], 10/04/2023 09:56:17 10/04/19 24 10/04/2023 ESR, AUTOM ATED ESR, automated 5 mm 0-19 normal Not Available [facility] [address] [place] [address], [address], 10/04/2023 12:10:27 10/04/19 24 10/07/2023 QUANT IFERO N TB GOLD qtb gold NEGATI VE negati ve normal Negat jailyn test resul t. M. tuber culos is compl ex infec tion unlik alma delia. Not Available [facility] [address] [place] [address], [address], 10/07/2023 16:56:21 10/04/19 24 10/07/2023 QUANT IFERO N TB GOLD nil 0.03 IU/mL normal Not Available [facility] [address] [place] [address], [address], 10/07/2023 16:56:21 10/04/19 24 10/07/2023 QUANT IFERO N TB GOLD mitogen nil 8.87 IU/mL normal Not Available [facility] [address] [place] [address], [address], 10/07/2023 16:56:21 10/04/19 24 10/07/2023 QUANT IFERO N TB GOLD TB1 nil 0.01 IU/mL normal Not Available [facility] [address] [place] [address], [address], 10/07/2023 16:56:21 10/04/19 24 10/07/2023 QUANT IFERO [...] e refer to https ://ed ucati on.qu danielUtiliData. [employer] [place]/f aq/FA Q204 (This link is being provi ded for infor kali badillo/ educa sita l purpo ses only. ) Not Available [facility] [address] [place] [address], [address], 10/07/2023 16:56:21 07/24/20 24 07/24/2024 COMPL ETE BLOOD COUNT white blood cells 6.1 10*3/ uL 3.8-10 .8 normal Not Available [facility] [address] [place] [address], [address], 07/24/2024 10:27:11 07/24/20 24 07/24/2024 COMPL ETE BLOOD COUNT red blood cells 5.30 10*6/ uL 4.20-5 .80 normal Not Available [facility] [address] [place] [address], [address], 07/24/2024 10:27:11 07/24/20 24 07/24/2024 COMPL ETE BLOOD COUNT hemoglobin 16.1 g/dL 14.0-1 8.0 normal Not Available [facility] [address] [place] [address], [address], 07/24/2024 10:27:11 07/24/20 24 07/24/2024 COMPL ETE BLOOD COUNT hematocrit 47.1 % 40.0-5 2.0 normal Not Available [facility] [address] [place] [address], [address], 07/24/2024 10:27:11 07/24/20 24 07/24/2024 COMPL ETE BLOOD COUNT MCV 89 fL 80-100 normal Not Available [facility] [address] [place] [address], [address], 07/24/2024 10:27:11 07/24/20 24 07/24/2024 COMPL ETE BLOOD COUNT MCH 30 pg 26-35 normal Not Available [facility] [address] [place] [address], [address], 07/24/2024 10:27:11 07/24/20 24 07/24/2024 COMPL ETE BLOOD COUNT MCHC 34 g/dL 32-36 normal Not Available [facility] [address] [place] [address], [address], 07/24/2024 10:27:11 07/24/20 24 07/24/2024 COMPL ETE BLOOD COUNT RDW 15.7 % 11.0-1 5.0 high Not Available [facility] [address] [place] [address], [address], 07/24/2024 10:27:11 07/24/20 24 07/24/2024 COMPL ETE BLOOD COUNT MPV 8.0 fL 6.2-10 .5 normal Not Available [facility] [address] [place] [address], [address], 07/24/2024 10:27:11 07/24/20 24 07/24/2024 COMPL ETE BLOOD COUNT platelet count 190 10*3/ uL 150-40 0 normal Not Available [facility] [address] [place] [address], [address], 07/24/2024 10:27:11 07/24/20 24 07/24/2024 COMPL ETE BLOOD COUNT neutrophil,a bsolute 4.3 10*3/ uL 1.6-8. 4 normal Not Available [facility] [address] [place] [address], [address], 07/24/2024 10:27:11 07/24/20 24 07/24/2024 COMPL ETE BLOOD COUNT lymphocyte,a bsolute 1.2 10*3/ uL 0.4-5. 1 normal Not Available [facility] [address] [place] [address], [address], 07/24/2024 10:27:11 07/24/20 24 07/24/2024 COMPL ETE BLOOD COUNT monocyte,abs olute 0.5 10*3/ uL 0.0-1. 2 normal Not Available [facility] [address] [place] [address], [address], 07/24/2024 10:27:11 07/24/20 24 07/24/2024 COMPL ETE BLOOD COUNT eosinophil,a bsolute 0.2 10*3/ uL 0.0-0. 8 normal Not Available [facility] [address] [place] [address], [address], 07/24/2024 10:27:11 07/24/20 24 07/24/2024 COMPL ETE BLOOD COUNT basophil,abs olute 0.0 10*3/ uL 0.0-0. 3 normal Not Available [facility] [address] [place] [address], [address], 07/24/2024 10:27:11 07/24/20 24 07/24/2024 COMPL ETE BLOOD COUNT % neutrophils 69.9 % 42.0-7 8.0 normal Not Available [facility] [address] [place] [address], [address], 07/24/2024 10:27:11 07/24/20 24 07/24/2024 COMPL ETE BLOOD COUNT % lymphocytes 19.1 % 11.0-4 7.0 normal Not Available [facility] [address] [place] [address], [address], 07/24/2024 10:27:11 07/24/20 24 07/24/2024 COMPL ETE BLOOD COUNT % monocytes 7.5 % 0.0-11 .0 normal Not Available [facility] [address] [place] [address], [address], 07/24/2024 10:27:11 07/24/20 24 07/24/2024 COMPL ETE BLOOD COUNT % eosinophils 3.0 % 0.0-7. 0 normal Not Available [facility] [address] [place] [address], [address], 07/24/2024 10:27:11 07/24/20 24 07/24/2024 COMPL ETE BLOOD COUNT % basophils 0.5 % 0.0-3. 0 normal Not Available [facility] [address] [place] [address], [address], 07/24/2024 10:27:11 07/24/20 24 07/24/2024 COMPL ETE BLOOD COUNT nucleated red cells 0.1 % 0.0-0. 9 normal Not Available [facility] [address] [place] [address], [address], 07/24/2024 10:27:11 07/24/20 24 07/24/2024 COMPL ETE BLOOD COUNT nucleated RBCs, absolute 0.00 10*3/ uL not estab. normal Not Available [facility] [address] [place] [address], [address], 07/24/2024 10:27:11 07/24/20 24 07/24/2024 HEPAT IC (LIVE R) PANEL AST 63 U/L 0-40 high Not Available [facility] [address] [place] [address], [address], 07/24/2024 10:45:12 07/24/20 24 07/24/2024 HEPAT IC (LIVE R) PANEL ALT 69 U/L 0-41 high Not Available [facility] [address] [place] [address], [address], 07/24/2024 10:45:12 07/24/20 24 07/24/2024 HEPAT IC (LIVE R) PANEL alkaline phosphatase 80 U/L 40-129 normal Not Available [facility] [address] [place] [address], [address], 07/24/2024 10:45:12 07/24/20 24 07/24/2024 HEPAT IC (LIVE R) PANEL total protein 7.0 g/dL 6.4-8. 3 normal Not Available [facility] [address] [place] [address], [address], 07/24/2024 10:45:12 07/24/20 24 07/24/2024 HEPAT IC (LIVE R) PANEL albumin 4.2 g/dL 3.5-5. 2 normal Not Available [facility] [address] [place] [address], [address], 07/24/2024 10:45:12 07/24/20 24 07/24/2024 HEPAT IC (LIVE R) PANEL bilirubin, total 0.5 mg/dL 0.1-1. 2 normal Not Available [facility] [address] [place] [address], [address], 07/24/2024 10:45:12 07/24/20 24 07/24/2024 HEPAT IC (LIVE R) PANEL bilirubin, direct <0.2 mg/dL 0.0-0. 3 normal Not Available [facility] [address] [place] [address], [address], 07/24/2024 10:45:12 07/24/20 24 07/24/2024 HEPAT IC (LIVE R) PANEL bilirubin, indirect see below mg/dL _(shivam c) 0.0-1. 0 normal Unabl e to calcu late Indir ect Bilir ubin. Not Available [facility] [address] [place] [address], [address], 07/24/2024 10:45:12 07/24/20 24 07/24/2024 ESR, AUTOM ATED ESR, automated 3 mm 0-19 normal Not Available [facility] [address] [place] [address], [address], 07/24/2024 11:51:28 01/23/20 25 01/22/2025 COMPL ETE BLOOD COUNT white blood cells 6.7 10*3/ uL 3.8-10 .8 normal Not Available [facility] [address] [place] [address], [address], 01/22/2025 14:55:56 01/23/20 25 01/22/2025 COMPL ETE BLOOD COUNT red blood cells 5.15 10*6/ uL 4.20-5 .80 normal Not Available [facility] [address] [place] [address], [address], 01/22/2025 14:55:56 01/23/20 25 01/22/2025 COMPL ETE BLOOD COUNT hemoglobin 15.7 g/dL 14.0-1 8.0 normal Not Available [facility] [address] [place] [address], [address], 01/22/2025 14:55:56 01/23/20 25 01/22/2025 COMPL ETE BLOOD COUNT hematocrit 45.3 % 40.0-5 2.0 normal Not Available [facility] [address] [place] [address], [address], 01/22/2025 14:55:56 01/23/20 25 01/22/2025 COMPL ETE BLOOD COUNT MCV 88 fL 80-100 normal Not Available [facility] [address] [place] [address], [address], 01/22/2025 14:55:56 01/23/20 25 01/22/2025 COMPL ETE BLOOD COUNT MCH 31 pg 26-35 normal Not Available [facility] [address] [place] [address], [phone], 01/22/2025 14:55:56 01/23/20 25 01/22/2025 COMPL ETE BLOOD COUNT MCHC 35 g/dL 32-36 normal Not Available [facility] [address] [place] [address], [id number], 01/22/2025 14:55:56 01/23/20 25 01/22/2025 COMPL ETE BLOOD COUNT RDW 15.2 % 11.0-1 5.0 high Not Available [facility] [address] [place] [address], [phone], 01/22/2025 14:55:56 01/23/20 25 01/22/2025 COMPL ETE BLOOD COUNT MPV 8.3 fL 6.2-10 .5 normal Not Available [facility] [address] [place] [address], [address], 01/22/2025 14:55:56 01/23/20 25 01/22/2025 COMPL ETE BLOOD COUNT platelet count 177 10*3/ uL 150-40 0 normal Not Available [facility] [address] [place] [address], [phone], 01/22/2025 14:55:56 01/23/20 25 01/22/2025 COMPL ETE BLOOD COUNT neutrophil,a bsolute 4.5 10*3/ uL 1.6-8. 4 normal Not Available [facility] [address] [place] [address], [phone], 01/22/2025 14:55:56 01/23/20 25 01/22/2025 COMPL ETE BLOOD COUNT lymphocyte,a bsolute 1.5 10*3/ uL 0.4-5. 1 normal Not Available [facility] [address] [place] [address], [phone], 01/22/2025 14:55:56 01/23/20 25 01/22/2025 COMPL ETE BLOOD COUNT monocyte,abs olute 0.5 10*3/ uL 0.0-1. 2 normal Not Available [facility] [address] [place] [address], [id number], 01/22/2025 14:55:56 01/23/20 25 01/22/2025 COMPL ETE BLOOD COUNT eosinophil,a bsolute 0.2 10*3/ uL 0.0-0. 8 normal Not Available [facility] [address] [place] [address], [id number], 01/22/2025 14:55:56 01/23/20 25 01/22/2025 COMPL ETE BLOOD COUNT basophil,abs olute 0.0 10*3/ uL 0.0-0. 3 normal Not Available [facility] [address] [place] [address], [address], 01/22/2025 14:55:56 01/23/20 25 01/22/2025 COMPL ETE BLOOD COUNT % neutrophils 66.8 % 42.0-7 8.0 normal Not Available [facility] [address] [place] [address], [address], 01/22/2025 14:55:56 01/23/20 25 01/22/2025 COMPL ETE BLOOD COUNT % lymphocytes 23.1 % 11.0-4 7.0 normal Not Available [facility] [address] [place] [address], [address], 01/22/2025 14:55:56 01/23/20 25 01/22/2025 COMPL ETE BLOOD COUNT % monocytes 7.0 % 0.0-11 .0 normal Not Available [facility] [address] [place] [address], [phone], 01/22/2025 14:55:56 01/23/20 25 01/22/2025 COMPL ETE BLOOD COUNT % eosinophils 2.5 % 0.0-7. 0 normal Not Available [facility] [address] [place] [address], [address], 01/22/2025 14:55:56 01/23/20 25 01/22/2025 COMPL ETE BLOOD COUNT % basophils 0.6 % 0.0-3. 0 normal Not Available [facility] [address] [place] [address], [id number], 01/22/2025 14:55:56 01/23/20 25 01/22/2025 COMPL ETE BLOOD COUNT nucleated red cells 0.1 % 0.0-0. 9 normal Not Available [facility] [address] [place] [address], [address], 01/22/2025 14:55:56 01/23/20 25 01/22/2025 COMPL ETE BLOOD COUNT nucleated RBCs, absolute 0.01 10*3/ uL not estab. normal Not Available [facility] [address] [place] [address], [phone], 01/22/2025 14:55:56 01/23/20 25 01/22/2025 HEPAT IC (LIVE R) PANEL AST 25 U/L 0-40 normal Not Available [facility] [address] [place] [address], [phone], 01/22/2025 15:29:21 01/23/20 25 01/22/2025 HEPAT IC (LIVE R) PANEL ALT 28 U/L 0-41 normal Not Available [facility] [address] [place] [address], [id number], 01/22/2025 15:29:21 01/23/20 25 01/22/2025 HEPAT IC (LIVE R) PANEL alkaline phosphatase 75 U/L 40-129 normal Not Available [facility] [address] [place] [address], [address], 01/22/2025 15:29:21 01/23/20 25 01/22/2025 HEPAT IC (LIVE R) PANEL total protein 6.9 g/dL 6.4-8. 3 normal Not Available [facility] [address] [place] [address], [id number], 01/22/2025 15:29:21 01/23/20 25 01/22/2025 HEPAT IC (LIVE R) PANEL albumin 4.3 g/dL 3.5-5. 2 normal Not Available [facility] [address] [place] [address], [address], 01/22/2025 15:29:21 01/23/20 25 01/22/2025 HEPAT IC (LIVE R) PANEL bilirubin, total 0.6 mg/dL 0.1-1. 2 normal Not Available [facility] [address] [place] [address], [address], 01/22/2025 15:29:21 01/23/20 25 01/22/2025 HEPAT IC (LIVE R) PANEL bilirubin, direct 0.2 mg/dL 0.0-0. 3 normal Not Available [facility] [address] [place] [address], [phone], 01/22/2025 15:29:21 01/23/20 25 01/22/2025 HEPAT IC (LIVE R) PANEL bilirubin, indirect 0.4 mg/dL _(shivam c) 0.0-1. 0 normal Not Available [facility] [address] [place] [address], [id number], 01/22/2025 15:29:21 Result Notes None recorded. Medical Equipment None Reported. Allergies Allergen ID Allergen Name Allergen Category Reaction Reaction Severity Criticality Documentation Date Start Date Code Code System Note Provider Name and Address Organization Details Recorded Time 020801 morphine medicatio n rash mild low 04/16/2024 7052 RxNorm [facility] 10:59:48 Medications Name Sig Start Date Stop Date Status Note LastModified by Organization Details LastModified Time gabapenti n 600 mg tablet Take 1 tablet 3 times a day by oral route. active Not Available Not Available No t Available nabumeton e 750 mg tablet TAKE 1 TABLET BY MOUTH TWICE DAILY 2024 active Not Available Not Available Not Avai lable methotrex ate sodium 2.5 mg tablet Take 8 tablets every week by oral route for 90 days. 2024 active Not Available Not Available [...] weight Respiratory rate Heart rate Oxygen saturation Systolic And Diastolic Provider Name and Address Organization Details Last Updated DateTime 4 185.42 cm 35.5 kg/m2 327361. 05 g 16 /min 69 /min 96 % 132/76 mm[Hg] Emerita Gamino [facility] 4 08:15:34 Date Recorded Body height Respiratory rate Oxygen saturation Heart rate Body mass index (BMI) Body weight Systolic And Diastolic Provider Name and Address Organization Details Last Updated DateTime 5 185.42 cm 16 /min 96 % 84 /min 35.9 kg/m2 227068. 12 g 122/68 mm[Hg] Sunil [facility] 5 13:12:45 Date Recorded Body height Body mass index (BMI) Body weight Respiratory rate Heart rate Oxygen saturation Systolic And Diastolic Provider Name and Address Organization Details Last Updated DateTime 3 185.42 cm 33.6 kg/m2 814087. 05 g 16 /min 77 /min 98 % 122/78 mm[Hg] Emerita [facility] 3 09:06:59 Date Recorded Body height Body mass index (BMI) Body weight Respiratory rate Heart rate Oxygen saturation Systolic And Diastolic Provider Name and Address Organization Details Last Updated DateTime 4 185.42 cm 33.8 kg/m2 216839. 45 g 16 /min 80 /min 98 % 120/72 mm[Hg] [facility] 4 11:01:06 Date Recorded Body height Respiratory rate Body mass index (BMI) Body weight Heart rate Oxygen saturation Systolic And Diastolic Provider Name and Address Organization Details Last Updated DateTime 4 185.42 cm 16 /min 33.8 kg/m2 767419. 65 g 83 /min 96 % 122/72 mm[Hg] Sunil [facility] 4 09:15:30 Social History Question Answer Notes LastModified by [employer] Details LastModified Time Tobacco Smoking Status [facility] 09:02:42 What Was The Date Of Your Most Recent Tobacco Screening? 01/22/2025 [email or web address] Information not available 01/22/2025 Has Tobacco Cessation Counseling Been Provided? No Information not available 01/11/2022 Have You Recently Traveled Abroad? No Information not available 01/11/2022 Sex: Male Functional Status Question Answer Note LastModified by [employer] Details LastModified Time Do you use any illicit or recreational drugs? No Information not available 01/11/2022 Do you or have you ever used any other forms of tobacco or nicotine? No Information not available 01/11/2022 What is your level of alcohol consumption? Occasional [email or web address] Information not available 03/29/2023 Mental Status None recorded. Family History Relationship Description Onset Age of this Age Resolved Age Notes LastModified by Organization Details LastModified Time Father No current problems or disability [email or web address] Not available 01/11 09:02:35 Mother No current problems or disability [email or web address] Not available 01/11 09:02:35 Medical History Condition Response Emphysema N COPD N Arthritis Y Acid Reflux (GERD) Y Rheumatoid Arthritis Y Bleeding Disorder N Asthma N Diabetes Y Heart Disease N Hypertension N Past Encounters Encounter ID Performer Location Encounter Start Date Encounter Closed Date Diagnosis/Indication Diagnosis SNOMED-CT Code Diagnosis ICD10 Code Diagnosis IMO Codes Diagnosis Note [id number] MARY CAMERON MD [facility] [address] [place] [address] 01/11/2022 08:35:14 01/11/2022 09:34:01 Psoriatic arthritis 389612651 L40.50 61-year-ol d gentleman with history of psoriasis for almost 6 years along with joint pains worsening symptoms for the last 6 to [address] Scarlett Pe[facility]aloza with [facility]. Recently started [place] 23 antagonist Tremfya 100 [...] Baseline lab studies obtained. Long-term drug therapy 978055009 Z79.899 He will need to have a TB test, hepatitis panel and chest x-ray once a year while taking biologic therapy. He will also get CBC liver function panel and creatinine every 3 months. Chest x-rays obtained today. [id number] MARY CAMERON MD [facility] [address] [place] [address] 03/30/2022 12:51:28 04/05/2022 09:45:13 Psoriatic arthritis [id number] L40.50 61-year-ol d gentleman with psoriasis and psoriatic arthritis. Followed by Dr. Ana Peñaloza with [facility]. On [place] 23 antagonist Tremfya 100 mg [...] diet. Long-term current use of immunosuppressive drug 034989849 Z79.899 Labs repeated on the current combinatio n [id number] MARY CAMERON MD [facility] [address] [place] [address] 09/28/2022 10:35:09 09/28/2022 14:58:38 Psoriatic arthritis [id number] L40.50 62-year-ol d gentleman with psoriasis and psoriatic arthritis. Followed by Dr. Ana Peñaloza with [facility]. On [place] 23 antagonist Tremfya 100 [...] diet. Long-term current use of immunosuppressive drug 604111503 Z79.899 [id number] MARY CAMERON MD [facility] [address] [place] [address] 03/29/2023 08:59:26 03/30/2023 04:13:34 Psoriatic arthritis [id number] L40.50 62-year-ol d gentleman with psoriasis and psoriatic arthritis. Followed by Dr. Ana paul with [facility]. On [place] 23 antagonist Tremfya 100 [...] months. Long-term current use of immunosuppressive drug 681870200 Z79.899 Labs from 09/2022 personally reviewed and appear normal We will repeat labs again today, obtain CBC liver function and ESR TB test is up to date repeat in September 2023. [id number] MARY CAMERON MD [facility] [address] [place] [address] 10/04/2023 07:58:21 10/07/2023 04:04:25 Psoriatic arthritis [id number] L40.50 63-year-ol d gentleman with psoriasis and psoriatic arthritis. Followed by Dr. Ana paul with [facility]. On [place] 23 antagonist Tremfya 100 [...] months. Long-term current use of immunosuppressive drug 114784048 Z79.899 Labs from 7/28/23 personally reviewed and appear normal We will repeat labs again today, obtain CBC liver function and ESR TB test 09/28/2022 normal, repeat today. [id number] MARY CAMERON MD [facility] [address] [place] [address] 04/16/2024 10:25:46 04/18/2024 04:23:39 Psoriatic arthritis [id number] L40.50 64-year-ol d gentleman with psoriasis and psoriatic arthritis. Followed by Dr. Ana paul with [facility]. On [place] 23 antagonist Tremfya 100 [...] months. Long-term current use of immunosuppressive drug 850324161 Z79.899 10/04/23 labs all normal. We will repeat labs again today, obtain CBC liver function and ESR TB test 10/04/23 normal, repeat in 2024. Dupuytren' s contracture of finger 363326961 M72.0 Dupuytren contractur e L hand middle and ring, R hand middle finger and ring finger. [id number] MARY CAMERON MD [facility] [address] [place] [address] 07/24/2024 09:07:05 07/28/2024 04:12:52 Psoriatic arthritis [id number] L40.50 64-year-ol d gentleman with psoriasis and psoriatic arthritis. Followed by Dr. Ana paul with [facility]. On [place] 23 antagonist Tremfya 100 [...] months. Long-term current use of immunosuppressive drug 731535833 Z79.899 10/04/23 labs all normal. We will repeat labs again today, obtain CBC liver function and ESR TB test 10/04/23 normal, repeat in 2024. Dupuytren' s contracture of finger 789931253 M72.0 Dupuytren contractur e L hand middle and ring, R hand middle finger and ring finger. Chronic and stable. Continue with local care. At present hold off on any surgical interventi ons. [id number] MARY CAMERON MD [facility] [address] [place] [address] 01/22/2025 13:02:50 01/22/2025 13:55:14 Psoriatic arthritis [id number] L40.50 64-year-ol d gentleman with psoriasis and psoriatic arthritis. Followed by Dr. Ana paul with [facility]. On [place] 23 antagonist Tremfya 100 [...] months. Long-term current use of immunosuppressive drug 160684470 Z79.899 10/04/23 labs all normal. We will repeat labs again today, obtain CBC liver function and ESR TB test 10/04/23 normal, repeat today. Repeat CBC and liver function panel Dupuytren' s contracture of finger 677778800 M72.0 Dupuytren contractur e L hand middle and ring, R hand middle finger and ring finger. Chronic and stable. Continue with local care. At present hold off on any surgical interventi ons. Bilateral shoulder osteoarthritis [id number] 35226 M19.011 M19.012 [id number] Traumatic. Moderate to severe degenerati ve changes. [...] Her Member ID Guarantor Name 01/19/2025 2 [employer] (MEDICARE) Catarino Monte [id number] 3 Catarino Monte 01/26/2025 1 [place] [employer] [place] - [employer] 113 Khushbu Monte [id number] Catarino Monte Notes Date Note Type Note Provider Name and Address Organization Details Recorded Time 03/29/2023 text/html ROS as noted in the HPI 62 y/o m here for a follow-up on psoriatic arthritis. Since last [...] well. No interval infections. MARY CAMERON MD [address] [place] [address], [phone], [facility] 03/29/2023 10:15:47 10/04/2023 text/html ROS as noted in the HPI 63 y/o m here for a follow-up on psoriatic arthritis. yBron was last seen here in our rheumatology department 03/29/2023 Doing much better on the combination of methotrexate and Tremfya. Tolerating the combination well. Joints are doing fairly well. No interval infections. MARY CAMERON MD [facility] [place], [address], [facility] 10/06/2023 13:51:43 04/16/2024 text/html ROS as noted in the HPI 64 y/o m here for a follow-up on psoriatic arthritis. Byron was last seen here in our rheumatology department 10/04/23. Doing much better on the combination of methotrexate 20 mg q weekly and Tremfya 100mg q 8 weeks.Dermatologis t is . Tolerating the combination well. Joints are doing fairly well.skin is stable. No interval infections. MARY CAMERON MD [address] [place], [address], [facility] 04/17/2024 08:05:52 07/24/2024 text/html ROS as noted in the HPI 64 y/o m here for a follow-up on psoriatic arthritis. Byron was last seen here in our rheumatology department 04/16/24. Doing much better on the combination of methotrexate 20 mg q weekly and Tremfya 100mg q 8 weeks. No side effects reported.Marisol mazariegos is . Tolerating the combination well. skin is stable. Every once in a while a flare. No interval infections. MARY CAMERON MD [address] [place] [address], [phone], [facility] 07/27/2024 11:06:15 01/22/2025 text/html ROS as noted in the HPI 64 y/o m here for a follow-up on psoriatic arthritis. Byron was [...] flare. No interval infections. MARY CAMERON MD [facility] [place], [address], [facility] 01/22/2025 13:48:57
== END 2025-08-02 23:59 | disposition home or self-care (01) ==
LOC: RAD 09:09
PROVIDERS: PCP Family Medicine; Visit Provider Family Medicine
DX: M75.122 Complete rotator cuff tear or rupture of left shoulder, not specified as traumatic (principal); M75.82 Other shoulder lesions, left shoulder
CPT/HCPCS: 73221